=== PATIENT | male | born 1935 | race Caucasian/White ===

== ENCOUNTER 2016-05-09 17:59 | Outpatient (CLI) | payer OTHER ==
[2016-05-09 21:22] VITALS: BMI 18.1
== END 2016-05-09 18:00 | disposition home or self-care (01) ==
LOC: AMBL 17:59
PROVIDERS: ATTEND Family Medicine
DX: R50.9 Fever, unspecified (principal); R11.10 Vomiting, unspecified; R33.9 Retention of urine, unspecified; R00.0 Tachycardia, unspecified; R09.02 Hypoxemia

== ENCOUNTER 2016-05-09 18:32 | Inpatient (IN) ==
[2016-05-09] MEDS ORDERED: SODIUM CHLORIDE 1,000 ML IV STA (18:34)
[2016-05-09] MEDS ORDERED: LEVAQUIN 250 MG in PREMIX 50 ML D5W 1 BAG IV STA (18:35)
[2016-05-09 18:56] LABS: BASOPHILS # (AUTO) 0.1 K/uL (0-0.2); BASOPHILS % (AUTO) 0.5 % (0.0-3.0); EOSINOPHILS # (AUTO) 0.1 K/ul (0.0-0.7); EOSINOPHILS % (AUTO) 0.8 % (0.0-7.0); HEMATOCRIT 44.1 % (42.0-52.0); IMMATURE GRANULOCYTE % (AUTO) 0.5 % (0.0-5.0); LYMPHOCYTES # (AUTO) 0.7 K/uL (0.60-3.4); LYMPHOCYTES % (AUTO) 5.5 (10.0-50.0); MEAN CORPUSCULAR HEMOGLOBIN 28.3 pg (27.0-31.0); MEAN CORPUSCULAR HGB CONC 31.7 (31.8-35.4); MEAN CORPUSCULAR VOLUME 89.1 fl (80.0-94.0); MONOCYTES # (AUTO) 0.5 K/uL (0.4-2.0); NEUTROPHILS # (AUTO) 11.6 K/ul (2.0-6.9); NEUTROPHILS % (AUTO) 88.7; PLATELET COUNT 205 10^3/uL (140-440); RED BLOOD COUNT 4.95 10^6/ul (4.70-6.10); WHITE BLOOD COUNT 13.05 K/ul (4.2-10.2)
[2016-05-09 19:15] LABS: ALBUMIN 3.2 g/dL (3.4-5.0); ALBUMIN/GLOBULIN RATIO 0.97; BILIRUBIN,TOTAL 1.26 mg/dL (0.00-1.20); BUN/CREATININE RATIO 10.61; CREATININE 1.13 mg/dL (0.60-1.10); TOTAL PROTEIN 6.5 g/dL (5.8-8.1)
[2016-05-09 19:19] LABS: FLU INTERNAL QC INTERNAL QC VALID; RAPID FLU A NEGATIVE (NEGATIVE); RAPID FLU B NEGATIVE (NEGATIVE)
[2016-05-09 19:27] LABS: ABG PCO2 36.1 mmHg (35-45); ABG PH 7.417 (7.35-7.45)
--- NOTE | 2016-05-09 19:27 | CT ---
EXAM: CT abdomen pelvis without contrast HISTORY: Vomiting COMPARISON: CT abdomen pelvis 11/09/2015 and 08/17/2014 TECHNIQUE: Serial axial images of the abdomen pelvis were performed from the lung bases through the inferior pelvis without contrast. These were viewed in multiple planes. FINDINGS: The lung bases demonstrate trace pleural fluid and bibasilar consolidations. There is em physematous disease. Evaluation is limited due to lack of contrast. The liver is unremarkable. The gallbladder has been removed. There is gas within the common duct and left-sided pneumobilia. The adrenal glands are u nremarkable. The kidneys are unremarkable. The liver is unremarkable. The pancreas is unremarkabl e. The stomach is unremarkable. The small bowel in the abdomen pelvis is unremarkable. The appendix i s normal. The colon demonstrates significant stool throughout the colon. There is an infrarenal ab dominal aortic aneurysm measuring 2.9 cm in diameter. There is no free air or free fluid. Urinary bladder is distended. Prostate is mildly enlarged. The osseous structures demonstrate degenerative disease of the spine with intact fixation hardware in the right hip. IMPRESSION: 1. The gallbladder has been removed with interval pneumobilia and air in the common duct. 2. Mild bibasilar consolidation versus atelectasis with mild emphysematous disease. 3. Unchanged infrarenal abdominal aortic aneurysm. 4. Prostate is enlarged.
[2016-05-09 19:28] LABS: ABG BASE EXCESS -1 (-2.0-2.0); ABG HCO3 23.2 (22.0-26.0); ABG TCO2 24 (22.0-28.0)
--- NOTE | 2016-05-09 19:31 | CT ---
EXAM: CT scan thorax without contrast HISTORY: Fever cough COMPARISON: CT scan thorax 07/08/2014 FINDINGS: Contiguous axial images obtained through the thorax without contrast utilizing 5-mm colli mation. Sagittal and coronal reconstructions were imaged and reviewed.. There is a stable right-si ded MediPort catheter in the superior vena cava. The heart is normal in size with extensive coronar y artery calcification. There is no pericardial effusion. There are moderate emphysematous changes . There is no evidence of mediastinal lymphadenopathy. Evaluation of hilar structures is limited w ithout intravenous contrast.. Stable fibrotic scarring is noted anteriorly within the right upper l obe. Scarring is also seen within the superior segment of the right lower lobe.. Stable consolidat ion is seen posteromedially superior segment right lower lobe. There has been slight increase in de pendent consolidation at both lung bases.. There is tiny bilateral pleural effusions. Clips are se en in the upper quadrant. Pneumobilia is seen within the left lobe of the liver.. There is stable chronic compression deformity within the mid-thoracic spine. IMPRESSION: Chronic obstructive pulmonary disease. Normal-sized cardiac silhouette with extensive coronary artery calcification. Stable consolidation superior segment right lower lobe with slight increase in dependent consolidati on both lung bases with tiny bilateral pleural effusions. Prior cholecystectomy with pneumobilia
[2016-05-09] MEDS ORDERED: DUONEB NEB STA (19:36)
--- NOTE | 2016-05-09 19:40 | ED.PDOC ---
General ED Provider: Dr. AIME NORIEGA Chief Complaint: Shortness of Air Stated Complaint: Patient is brought by EMT, he was coughing congested, called office and got some antibiotics, but today he started vomiting, so brought him for the evaluation, patient grand child is sick too. Time Seen by Physician: 19:38 Mode of Arrival: Ambulance Information Source: Patient Primary Care Provider: SEAN BIRMINGHAM Nursing and Triage Documentation Reviewed and Agree: Yes Respiratory Complaint Exam - Respiratory Complaint/Exam Symptoms Are: Still present Timing: Constant Initial Severity: Moderate Current Severity: Mild Location: Chest Character: Reports: Productive cough Aggravating: Reports: URI Alleviating: Reports: None Associated Signs and Symptoms: Reports: URI, Nasal congestion. Denies: Rapid breathing, Dyspnea, Fever, Chills, Chest pain, Pleuritic chest pain, Wheezing, Hemoptysis, Dizziness, Calf pain, Calf swelling, Edema, Hoarseness, Sinus discomfort, Vomiting, Sore throat, Weight loss, Decreased oral intake, Increased thirst, Increased appetite, Increased urination Related History: Reports: Similar episode History of Healthcare-Acquired Pneumonia: No Related Surgical History: Reports: None Pulmonary Embolism Risk Factors: None Cardiac Risk Factors: Reports: Smoking, Hypertension Pseudomonas Risk Factors: Reports: None Tuberculosis Risk Factors: Reports: None Status Asthmaticus Risk Factors: Reports: None Home Oxygen Use: No Recent Stress Test: No Recent Echo/LV Function: No Current Antibiotic Use: No Current Asthma Medication Use: No Respiratory Distress: None Inadequate Respiratory Effort: No Dysphagia Present: No Stridor Present: No JVD Present: No Accessory Muscle Use: No Retractions: Not Present Diminished Breath Sounds: No Sinus Tenderness: None Differential Diagnoses: COPD Exacerbation, Pneumonia, Bronchitis, Influenza Review of Systems - Review Of Systems Constitutional: Reports: Fever, Malaise, Weakness Eyes: Reports: No symptoms Ears, Nose, Mouth, Throat: Reports: No symptoms Respiratory: Reports: Cough, Short of air Cardiac: Reports: No symptoms GI: Reports: Nausea, Vomiting : Reports: No symptoms Musculoskeletal: Reports: No symptoms Skin: Reports: No symptoms Neurological: Reports: No symptoms Endocrine: Reports: No symptoms Hematologic/Lymphatic: Reports: No symptoms All Other Systems: Reviewed and Negative Past Medical History - Past Medical History Previously Healthy: Yes Endocrine: Reports: None Cardiovascular: Reports: None Respiratory: Reports: COPD Hematological: Reports: None Gastrointestinal: Reports: None Genitourinary: Reports: None Neuro/Psych: Reports: None Musculoskeletal: Reports: Arthritis 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 ), Other (Mediport ) - Family History Family History: Reports: None - Social History Smoking Status: Former smoker Hx Substance Use: No Alcohol Screening: None Physical Exam - Physical Exam Appearance: Ill-appearing, Thin Ill-appearing: Mild Eyes: EOMI ENT: Ears normal, Nose normal, Oropharynx normal Respiratory: Breath sounds diminished Cardiovascular: RRR, Pulses normal, No rub, No murmur GI/: Soft, Nontender, No masses, Bowel sounds normal, No Organomegaly Musculoskeletal: Normal strength (RT BKA), ROM intact, No edema, No calf tenderness Skin: Warm, Dry, Normal color Neurological: Sensation intact, Motor intact, Reflexes intact, Cranial nerves intact, Alert, Oriented Psychiatric: Affect appropriate, Mood appropriate Interpretation - Radiology Interpretation Radiology Interpretation By: Radiologist Radiology Results: Positive Exam Interpreted: CT Scan Critical Care Note - Critical Care Note Total Time (mins): 0 Course - Course Hematology/Chemistry: 05/09/16 18:45 05/09/16 18:45 Orders, Labs, Meds: Lab Review 05/09/16 05/09/16 18:33 18:45 WBC 13.05 H RBC 4.95 Hgb 14.0 Hct 44.1 MCV 89.1 MCH 28.3 MCHC 31.7 L RDW Coeff of [place] 14.6 Plt Count 205 Immature Gran % (Auto) 0.5 Neut % (Auto) 88.7 Lymph % (Auto) 5.5 L [place] % (Auto) 4.0 Eos % (Auto) 0.8 Baso % (Auto) 0.5 Immature Gran # (Auto) 0.1 Neut # 11.6 H Lymph # 0.7 Divide # 0.5 Eos # 0.1 Baso # 0.1 D-Dimer 2.25 Puncture Site Lb O2 Saturation 93.0 L ABG pH 7.417 ABG pCO2 36.1 ABG pO2 65.0 L ABG HCO3 23.2 ABG Total CO2 24 ABG Base Excess -1 [place] Test + O2 Delivery Device Bnc Oxygen Liter Flow 2.00 FiO2 % 28.0 Sodium 140 Potassium 4.0 Chloride 103 Carbon Dioxide 25 Anion Gap 16.0 BUN 12 Creatinine 1.13 H Estimated GFR (MDRD) 63.00 BUN/Creatinine Ratio 10.61 Glucose 131 H Calcium 9.0 Total Bilirubin 1.26 H AST 15 ALT 12 Alkaline Phosphatase 78 B-Natriuretic Peptide 91 Total Protein 6.5 Albumin 3.2 L Globulin 3.3 Albumin/Globulin Ratio 0.97 Influenza A (Rapid) Negative Influenza B (Rapid) Negative Orders Category Date Time Status ABG DRAW REQUEST Stat CARDIO 05/09/16 18:33 Ordered EKG-(ED ONLY) Stat CARDIO 05/09/16 18:33 Ordered NEBULIZER TREATMENT Stat CARDIO 05/09/16 19:36 Ordered ED IV/MEDIPORT/POWERPORT .ONCE EMERGENCY 05/09/16 18:34 Active ABG Stat LAB 05/09/16 18:33 Completed BLOOD CULTURE Stat LAB 05/09/16 18:45 Received BNP [B-TYPE NATRIURETIC PEPTIDE] Stat LAB 05/09/16 18:45 Completed CBC W/ AUTO DIFF Stat LAB 05/09/16 18:45 Completed COMPREHENSIVE METABOLIC PANEL Stat LAB 05/09/16 18:45 Completed D-DIMER Stat LAB 05/09/16 18:45 Completed MOLECULAR GROUP A STREP Stat LAB 05/09/16 18:45 Results RAPID FLU A/B Stat LAB 05/09/16 18:45 Completed STREP SCREEN Stat LAB 05/09/16 18:45 Results URINALYSIS C & S IF INDICATED Stat LAB 05/09/16 18:33 Uncollected 0.9 % Sodium Chloride [Saline Flush] MEDS 05/09/16 18:34 Ordered 1 syr IVF PRN PRN Ipratropium/Albuterol Neb [Duoneb] MEDS 05/09/16 19:36 Discontinued 1 vial NEB ONCE STA Levofloxacin/D5w [Levaquin] 250 mg MEDS 05/09/16 18:35 Discontinued Premix 50 ml D5w 1 bag IV ONCE Sodium Chloride 0.9% [Sodium Chloride] 1,000 ml MEDS 05/09/16 18:34 Active IV 30 mls/hr CT ABDOMEN/PELVIS WO CONTRAST Stat RADS 05/09/16 18:[address] CHEST W/O CONTRAST Stat RADS 05/09/16 18:35 Completed Medications Generic Name Dose Route Start Last Admin Trade Name Freq PRN Reason Stop Dose Admin Sodium Chloride 1,000 mls @ 30 mls/hr 05/09/16 18:34 05/09/16 18:47 Sodium Chloride IV 05/11/16 03:53 30 mls/hr .[id number] STA Administration Sodium Chloride 1 syr 05/09/16 18:34 Saline Flush IVF PRN PRN To flush IV Discontinued Medications Generic Name Dose Route Start Last Admin Trade Name Marisa PRN Reason Stop Dose Admin Albuterol/Ipratropium 1 vial 05/09/16 19:36 05/09/16 19:42 Duoneb NEB 05/09/16 19:37 1 vial ONCE STA Administration Levofloxacin/Dextrose 250 mg/ 50 mls @ 75 mls/hr 05/09/16 18:35 Dextrose IV 05/09/16 19:14 ONCE STA Vital Signs: Temp Pulse Resp BP Pulse Ox 05/09/16 18:33 99.3 F 122 H 24 110/65 92 L Departure - Departure Time of Disposition: 19:56 Disposition: ADMITTED INPATIENT Discharge Problem: Aspiration pneumonia Qualifiers: Aspiration pneumonia type: due to vomit Laterality: right Lung location: lower lobe of lung Qualifier Code: (J69.0) Pneumonitis due to inhalation of food and vomit Instructions: Pneumonia (ED) Condition: Stable Pt referred to PMD for follow-up: Yes Allergies/Adverse Reactions: Allergies Penicillins Adverse Reaction (Verified 05/09/16 18:38) Home Medications: Ambulatory Orders Fluticasone/Salmeterol [Advair 250-50 Diskus] 1 each IH BID 04/01/13 Tiotropium [place] [Spiriva] 1 cap IH DAILY 04/01/13 Acetaminophen [Tylenol] 325 mg PO Q4H PRN 08/12/13 Guaifenesin [Mucinex] 400 mg PO BID 08/12/13 Aspirin [Adult Low Dose Aspirin EC] 81 mg PO DAILY 10/01/15 Lactobac Cmb #3/Fos/Pantethine [Probiotic & Acidophilus Cap] 1 each PO DAILY 11/08 Tamsulosin HCl [Flomax] 0.4 mg PO DAILY 10/01/15 Calcium Carbonate/Vitamin D3 [Caltrate 600 + D Tablet] 1 each PO DAILY 05/09/16 Ipratropium/Albuterol Neb [Duoneb] 1 vial NEB BID 05/09/16 Polyethylene Glycol 3350 [Miralax] 17 gm PO DAILY 05/09/16 Disposition Discussed With: Patient, Family
[2016-05-09] MEDS ORDERED: TYLENOL PO PRN (19:56)
[2016-05-09] MEDS ORDERED: ROCEPHIN 1 GM in SODIUM CHLORIDE 50 ML IV SCH (20:00)
[2016-05-09] MEDS ORDERED: ZOFRAN 4 MG/2 ML IVP PRN (20:01)
[2016-05-09] MEDS ORDERED: GUAIFENESIN 400 MG PO SCH (21:00)
[2016-05-09] MEDS ORDERED: GUAIFENESIN 600 MG PO SCH (21:03)
[2016-05-09] MEDS ORDERED: MUCINEX PO STA (21:04)
[2016-05-09] MEDS ORDERED: FLOMAX PO STA (21:05)
[2016-05-09 21:22] VITALS: BMI 18.1
[2016-05-09] MEDS ORDERED: FLAGYL 500 MG/100 ML 100 ML IV ONE (22:55)
[2016-05-09] MEDS ORDERED: ROCEPHIN ONE (22:55)
[2016-05-09] MEDS ORDERED: LEVAQUIN 50 ML IV ONE (22:55)
[2016-05-09] MEDS: DUONEB NEB SCH (23:00)
[2016-05-10] MEDS: SOLU-MEDROL 40 MG IVP SCH ×4 (01:08→20:16)
[2016-05-10] MEDS: FLAGYL 500 MG/100 ML 500 MG in PREMIX 100 ML NS 1 BAG IV SCH ×4 (01:10→21:43)
[2016-05-10 02:21] LABS: BASOPHILS # (AUTO) 0.1 K/uL (0-0.2); BASOPHILS % (AUTO) 0.5 % (0.0-3.0); EOSINOPHILS % (AUTO) 0.2 % (0.0-7.0); HEMATOCRIT 40.7 % (42.0-52.0); IMMATURE GRANULOCYTE % (AUTO) 0.5 % (0.0-5.0); LYMPHOCYTES # (AUTO) 0.9 K/uL (0.60-3.4); LYMPHOCYTES % (AUTO) 7.2 (10.0-50.0); MEAN CORPUSCULAR HEMOGLOBIN 28.5 pg (27.0-31.0); MEAN CORPUSCULAR HGB CONC 31.9 (31.8-35.4); MEAN CORPUSCULAR VOLUME 89.3 fl (80.0-94.0); MONOCYTES # (AUTO) 0.6 K/uL (0.4-2.0); MONOCYTES % (AUTO) 5.1 (0-10); NEUTROPHILS # (AUTO) 10.9 K/ul (2.0-6.9); NEUTROPHILS % (AUTO) 86.5; PLATELET COUNT 206 10^3/uL (140-440); RED BLOOD COUNT 4.56 10^6/ul (4.70-6.10); WHITE BLOOD COUNT 12.58 K/ul (4.2-10.2)
[2016-05-10 02:47] LABS: ANION GAP 12.9; BILIRUBIN,TOTAL 1.19 mg/dL (0.00-1.20); BUN/CREATININE RATIO 9.75; CALCIUM 8.7 mg/dL (8.2-10.2); CREATININE 1.23 mg/dL (0.60-1.10); POTASSIUM 3.9 mmol/L (3.5-5.1)
[2016-05-10 02:53] LABS: CREATINE KINASE 91 U/L
[2016-05-10] MEDS: SODIUM CHLORIDE 1,000 ML IV SCH (03:57)
[2016-05-10] MEDS: DUONEB NEB SCH ×3 (05:20→17:04)
[2016-05-10] MEDS ORDERED: FLAGYL 500 MG/100 ML 100 ML IV ONE (06:48)
[2016-05-10] MEDS: MIRALAX PO SCH (08:57)
[2016-05-10] MEDS: LOVENOX SUBCUT SCH (08:57)
[2016-05-10] MEDS: ADVAIR 250-50 DISKUS IH SCH ×3 (08:57→20:15)
[2016-05-10] MEDS: ASPIRIN EC PO SCH (08:58)
[2016-05-10] MEDS: MUCINEX PO SCH ×2 (08:58→20:15)
[2016-05-10] MEDS: CALCIUM 500 + VIT D 200 MG TABLET PO SCH (08:58)
[2016-05-10] MEDS: SPIRIVA IH SCH (09:00)
[2016-05-10] MEDS ORDERED: NON-FORMULARY MEDICATION (Calcium Carbonate/Vitamin D3 [Caltrate 600 Plus D3 Tablet] 1 EAC PO SCH (09:00)
[2016-05-10] MEDS ORDERED: [UNRECOGNIZED DRUG - OTHER] PO SCH (09:00)
[2016-05-10] MEDS ORDERED: FLOMAX PO SCH (09:00)
[2016-05-10] MEDS: FLORASTOR PO SCH (09:08)
[2016-05-10 11:01] LABS: TROPONIN I 0.01 ng/ml (0.0000-0.4000)
[2016-05-10] MEDS: ROCEPHIN 1 GM in SODIUM CHLORIDE 50 ML IV SCH (20:05)
[2016-05-11] MEDS: DUONEB NEB SCH ×5 (00:05→23:18)
[2016-05-11] MEDS: SODIUM CHLORIDE 1,000 ML IV SCH (02:57)
[2016-05-11] MEDS: FLAGYL 500 MG/100 ML 500 MG in PREMIX 100 ML NS 1 BAG IV SCH ×3 (04:19→20:46)
[2016-05-11 05:15] LABS: BASOPHILS % (AUTO) 0.2 % (0.0-3.0); HEMATOCRIT 35.3 % (42.0-52.0); HEMOGLOBIN 11.3 g/dl (14.0-18.0); IMMATURE GRANULOCYTE % (AUTO) 1.1 % (0.0-5.0); LYMPHOCYTES # (AUTO) 0.5 K/uL (0.60-3.4); LYMPHOCYTES % (AUTO) 4.2 (10.0-50.0); MEAN CORPUSCULAR HEMOGLOBIN 28.6 pg (27.0-31.0); MEAN CORPUSCULAR VOLUME 89.4 fl (80.0-94.0); MONOCYTES # (AUTO) 0.4 K/uL (0.4-2.0); MONOCYTES % (AUTO) 3.1 (0-10); NEUTROPHILS # (AUTO) 11.3 K/ul (2.0-6.9); NEUTROPHILS % (AUTO) 91.4; PLATELET COUNT 183 10^3/uL (140-440); RED BLOOD COUNT 3.95 10^6/ul (4.70-6.10); WHITE BLOOD COUNT 12.38 K/ul (4.2-10.2)
[2016-05-11] MEDS: SOLU-MEDROL 40 MG IVP SCH ×3 (05:22→20:46)
[2016-05-11 05:37] LABS: ALBUMIN 2.8 g/dL (3.4-5.0); ALBUMIN/GLOBULIN RATIO 1.12; ANION GAP 10.2; BILIRUBIN,TOTAL 0.37 mg/dL (0.00-1.20); BUN/CREATININE RATIO 15.74; CALCIUM 8.8 mg/dL (8.2-10.2); CREATININE 1.08 mg/dL (0.60-1.10); POTASSIUM 4.2 mmol/L (3.5-5.1); TOTAL PROTEIN 5.3 g/dL (5.8-8.1)
[2016-05-11] MEDS: ASPIRIN EC PO SCH (08:41)
[2016-05-11] MEDS: ADVAIR 250-50 DISKUS IH SCH ×2 (08:41→20:46)
[2016-05-11] MEDS: CALCIUM 500 + VIT D 200 MG TABLET PO SCH (08:41)
[2016-05-11] MEDS: FLORASTOR PO SCH (08:42)
[2016-05-11] MEDS: MUCINEX PO SCH ×2 (08:42→20:46)
[2016-05-11] MEDS: MIRALAX PO SCH (08:42)
[2016-05-11] MEDS: LOVENOX SUBCUT SCH (08:42)
[2016-05-11] MEDS: SPIRIVA IH SCH (08:43)
[2016-05-11 10:12] LABS: BILIRUBIN,URINE Negative (NEGATIVE); KETONES,URINE Negative (NEGATIVE); LEUKOCYTE ESTERASE ,URINE Trace (NEGATIVE); NITRITE,URINE Negative (NEGATIVE); PROTEIN,URINE Negative (NEGATIVE); URINE, BLOOD Negative (NEGATIVE)
--- NOTE | 2016-05-11 10:12 | PCM.PROG ---
Attending Provider: ATTENDING PROVIDER: Dr. AIME NORIEGA DATE OF SERVICE: 05/11/16 SUBJECTIVE: This 80 year old WHITE/ M was hospitalized 05/09/16. The patient is admitted with aspiration pneumonia, vomiting and hypoxemia. No vomiting since admission. The patient is still coughing, no phlegm production, no vomiting. Blood pressure is low for which he received a fluid challenge of 200 mL but did not help much. The patient is asymptomatic. So far urinalysis was not obtained. REVIEW OF SYSTEMS: CONSTITUTIONAL: No fever, no chills. ENDOCRINE: No weight loss or weight gain. HEENT: No sinus drainage, no sore throat. CVS: No angina symptoms. No CHF symptoms. No palpitations. No atypical chest pain for CAD. No shortness of breath at rest. RESPIRATORY: Cough. No hemoptysis. GI: No melena. No abdominal pain. No nausea, no vomiting. : No hematuria. No polyuria. SKIN: No rash. No wounds. MUSCULOSKELETAL: No pain. PULMONARY PHYSICAL THERAPIST: No blackout, no dizziness. No headache. No double vision. PSYCHIATRIC: Not anxious; no depression. No suicidal thoughts. No homicidal thoughts. PHYSICAL EXAMINATION: GENERAL: Lying in bed in no distress. VITAL SIGNS: Temperature 95.8 F, Pulse 69, Respiratory Rate 12, BP 96/58, Pulse Ox 98% HEENT: Normocephalic, atraumatic. Mucosa is dry, pallor positive. NECK: No JVP, no carotid bruit. No lymphadenopathy. CARDIAC: S1, S2, no S3. No murmur, gallop or regurgitation. LUNGS: Decreased entry. Basilar crackles right more than left. Clear to auscultation. ABDOMEN: Soft, non-tender. Bowel sounds active. No rigidity, guarding or CVA tenderness. EXTREMITIES: No clubbing, cyanosis or edema. Right [id number] amputation. NEUROLOGIC: Awake, alert and oriented x3. LYMPHATIC: No palpable lymph nodes SKIN: Not dry. Intact. MUSCULOSKELETAL: No joint swelling. LAB REVIEW: 05/11/16 05:08 05/11/16 05:08 05/11/16 05:08: WBC 12.38 H, RBC 3.95 L, Hgb 11.3 L, Hct 35.3 L, MCV 89.4, MCH 28.6, MCHC 32.0, RDW Coeff of [place] 14.7, Plt Count 183, Immature Gran % (Auto) 1.1, Neut % (Auto) 91.4, Lymph % (Auto) 4.2 L, Lucas % (Auto) 3.1, Eos % (Auto) 0.0, Baso % (Auto) 0.2, Immature Gran # (Auto) 0.1, Neut # 11.3 H, Lymph # 0.5 L , Lucas # 0.4, Eos # 0.0, Baso # 0.0, Sodium 139, Potassium 4.2, Chloride 107, Carbon Dioxide 26, Anion Gap 10.2, BUN 17, Creatinine 1.08, Estimated GFR (MDRD ) 66.00, BUN/Creatinine Ratio 15.74, Glucose 160 H, Calcium 8.8, Total Bilirubin 0.37, AST 9 L, ALT 8 L, Alkaline Phosphatase 52 L, Total Protein 5.3 L , Albumin 2.8 L, Globulin 2.5, Albumin/Globulin Ratio 1.12 05/10/16 10:30: Total Creatine Kinase 60, Troponin I 0.0100 ASSESSMENT: 1. Aspiration pneumonia right lower lobe 2. Hypotension most likely from dehydration, rule out sepsis 3. Hypertension 4. Dyslipidemia 5. Osteoarthritis 6. COPD, oxygen dependent 7. BPH 8. History of right BKA PLAN: 1. Continue Rocephin and Flagyl 2. Duonebs, Solu-Medrol 3. UA catheterized specimen 4. Diet - as patient tolerates Plan and coordination of the patient's care discussed in the presence of Diesel Instructor and nurse. CONDITION: Stable SCRIBED BY: Tammy CARRASCO scribed while in presence of service performed by Dr. AIME NORIEGA on 05/11/16 ([id number])
[2016-05-11 10:17] LABS: ADD URINE MICROSCOPIC YES; BACTERIA,URINE TRACE (NOT PRESENT)
--- NOTE | 2016-05-11 11:02 | PN ---
DATE OF SERVICE: 05/10/16 SUBJECTIVE: The patient was admitted with the questionable aspiration pneumonia. The patient was having the nausea, vomiting and then saturation dropped. Home health care people were afraid and sent the patient to the emergency room and was seen and evaluated in the emergency room. The patient was hypoxic and bilateral lower lobe pneumonia. REVIEW OF SYSTEMS: CONSTITUTIONAL: No fever, no chills. HEENT: Normal. ENDOCRINE: No weight gain, no weight loss. CVS: No angina symptoms. No CHF symptoms. No palpitations. No atypical chest pain for CAD. No shortness of breath. No PND, no orthopnea. RESPIRATORY: No cough, no hemoptysis. GI: No nausea, no vomiting. No abdominal pain. : No hematuria. No polyuria. MUSCULOSKELETAL:. No joint swelling. PSYCHIATRIC: Not anxious. No depression. No suicidal thoughts. No homicidal thoughts. SKIN: Intact. No rash. PHYSICAL EXAMINATION: V/S: Blood pressure 88/51, respiratory rate 22, heart rate 104 and saturation 96 %. HEENT: Normocephalic, atraumatic. Ears, eyes, nose and throat normal. Mucosa dry. Pallor positive. NECK: Supple. No JVD, no carotid bruit. No lymphadenopathy. LUNGS: Decreased entry with basilar crackles. No rales or rhonchi. HEART: S1, S2 normal. No S3. No murmur, gallop or regurgitation. ABDOMEN: Soft, nontender. Bowel sounds active. No rigidity. No rebound or guarding. No CVA tenderness. EXTREMITIES: No clubbing, cyanosis or pedal edema. MUSCULOSKELETAL: No joint swelling. NEUROLOGIC: Awake, alert, oriented times three. No focal deficit. LYMPHATIC: No lymph nodes palpable. SKIN: Intact. LABS: WBC 12.58, hgb 13.0, hct 40.7, plt count 206, sodium 138, potassium 3.9, chloride 103, Bicarb 26, BUN 12 and creatinine 1.23. ASSESSMENT: 1. Bilateral right lower lobe pneumonia most likely aspiration 2. COPD, oxygen dependant 3. Hypertension 4. Dyslipidemia 5. Status post right below the knee amputation PLAN: 1. Continue the Rocephin and Flagyl 2. DUO NEBS 3. Solu-Medrol 4. Lovenox for the DVT prophylaxis Will follow the patient in daily rounds. TIME SPENT: More than 30 minutes MTDD
[2016-05-11] MEDS: ROCEPHIN 1 GM in SODIUM CHLORIDE 50 ML IV SCH (20:07)
[2016-05-12] MEDS: CALMOSEPTINE OINTMENT TP SCH ×5 (01:25→20:06)
[2016-05-12 04:30] LABS: BASOPHILS % (AUTO) 0.1 % (0.0-3.0); HEMATOCRIT 36.7 % (42.0-52.0); HEMOGLOBIN 11.5 g/dl (14.0-18.0); IMMATURE GRANULOCYTE % (AUTO) 1.3 % (0.0-5.0); LYMPHOCYTES # (AUTO) 0.5 K/uL (0.60-3.4); LYMPHOCYTES % (AUTO) 3.1 (10.0-50.0); MEAN CORPUSCULAR HEMOGLOBIN 28.4 pg (27.0-31.0); MEAN CORPUSCULAR HGB CONC 31.3 (31.8-35.4); MEAN CORPUSCULAR VOLUME 90.6 fl (80.0-94.0); MONOCYTES # (AUTO) 0.5 K/uL (0.4-2.0); MONOCYTES % (AUTO) 3.2 (0-10); NEUTROPHILS # (AUTO) 13.4 K/ul (2.0-6.9); NEUTROPHILS % (AUTO) 92.3; PLATELET COUNT 208 10^3/uL (140-440); RED BLOOD COUNT 4.05 10^6/ul (4.70-6.10); WHITE BLOOD COUNT 14.54 K/ul (4.2-10.2)
[2016-05-12 04:50] LABS: ALBUMIN 2.7 g/dL (3.4-5.0); ALBUMIN/GLOBULIN RATIO 1.04; ANION GAP 11.9; BILIRUBIN,TOTAL 0.26 mg/dL (0.00-1.20); CALCIUM 8.7 mg/dL (8.2-10.2); CREATININE 1.05 mg/dL (0.60-1.10); POTASSIUM 3.9 mmol/L (3.5-5.1); TOTAL PROTEIN 5.3 g/dL (5.8-8.1)
[2016-05-12] MEDS: DUONEB NEB SCH ×4 (05:30→23:38)
[2016-05-12] MEDS: SOLU-MEDROL 40 MG IVP SCH ×3 (05:31→20:04)
[2016-05-12] MEDS: FLAGYL 500 MG/100 ML 500 MG in PREMIX 100 ML NS 1 BAG IV SCH ×3 (05:32→20:02)
[2016-05-12] MEDS: SODIUM CHLORIDE 1,000 ML IV SCH (09:18)
[2016-05-12] MEDS: ADVAIR 250-50 DISKUS IH SCH ×2 (09:19→21:10)
[2016-05-12] MEDS: CALCIUM 500 + VIT D 200 MG TABLET PO SCH (09:20)
[2016-05-12] MEDS: FLORASTOR PO SCH (09:20)
[2016-05-12] MEDS: MUCINEX PO SCH ×2 (09:21→20:00)
[2016-05-12] MEDS: SPIRIVA IH SCH (09:21)
[2016-05-12] MEDS: LOVENOX SUBCUT SCH (09:22)
[2016-05-12] MEDS: MIRALAX PO SCH (09:24)
--- NOTE | 2016-05-12 10:12 | DI ---
EXAM: Single view of the chest. History: Cough, short of breath Comparison: Chest radiograph 10/03/2015, chest CT 05/09/2016 Findings: Heart size is normal. Right central line is seen in place. Emphysema. No pneumothorax. Mild right basilar infiltrate. Visualized osseous structures unchanged. Impression: Mild right basilar infiltrate. Emphysema.
[2016-05-12] MEDS: ROCEPHIN 1 GM in SODIUM CHLORIDE 50 ML IV SCH (21:10)
[2016-05-13 04:28] LABS: BASOPHILS % (AUTO) 0.1 % (0.0-3.0); HEMATOCRIT 37.5 % (42.0-52.0); HEMOGLOBIN 11.8 g/dl (14.0-18.0); IMMATURE GRANULOCYTE % (AUTO) 0.8 % (0.0-5.0); LYMPHOCYTES # (AUTO) 0.5 K/uL (0.60-3.4); LYMPHOCYTES % (AUTO) 4.4 (10.0-50.0); MEAN CORPUSCULAR HEMOGLOBIN 28.4 pg (27.0-31.0); MEAN CORPUSCULAR HGB CONC 31.5 (31.8-35.4); MEAN CORPUSCULAR VOLUME 90.1 fl (80.0-94.0); MONOCYTES # (AUTO) 0.4 K/uL (0.4-2.0); MONOCYTES % (AUTO) 3.8 (0-10); NEUTROPHILS # (AUTO) 9.2 K/ul (2.0-6.9); NEUTROPHILS % (AUTO) 90.9; PLATELET COUNT 209 10^3/uL (140-440); RED BLOOD COUNT 4.16 10^6/ul (4.70-6.10); WHITE BLOOD COUNT 10.17 K/ul (4.2-10.2)
[2016-05-13] MEDS: FLAGYL 500 MG/100 ML 500 MG in PREMIX 100 ML NS 1 BAG IV SCH ×3 (04:31→21:06)
[2016-05-13] MEDS: SOLU-MEDROL 40 MG IVP SCH (04:32)
[2016-05-13 04:46] LABS: ALBUMIN 2.7 g/dL (3.4-5.0); ALBUMIN/GLOBULIN RATIO 1.08; ANION GAP 11.2; BILIRUBIN,TOTAL 0.27 mg/dL (0.00-1.20); BUN/CREATININE RATIO 17.11; CALCIUM 8.4 mg/dL (8.2-10.2); CREATININE 1.11 mg/dL (0.60-1.10); POTASSIUM 4.2 mmol/L (3.5-5.1); TOTAL PROTEIN 5.2 g/dL (5.8-8.1)
[2016-05-13] MEDS: DUONEB NEB SCH ×3 (05:46→17:18)
[2016-05-13] MEDS: ASPIRIN EC PO SCH (08:08)
[2016-05-13] MEDS ORDERED: MIRALAX PO SCH (08:55)
[2016-05-13] MEDS: ADVAIR 250-50 DISKUS IH SCH ×2 (10:17→20:06)
[2016-05-13] MEDS: CALCIUM 500 + VIT D 200 MG TABLET PO SCH (10:17)
[2016-05-13] MEDS: CALMOSEPTINE OINTMENT TP SCH ×4 (10:18→20:06)
[2016-05-13] MEDS: FLORASTOR PO SCH (10:19)
[2016-05-13] MEDS: LOVENOX SUBCUT SCH (10:20)
[2016-05-13] MEDS: MEDROL DOSEPAK PO SCH ×4 (10:22→20:07)
[2016-05-13] MEDS: MUCINEX PO SCH ×2 (10:23→20:05)
[2016-05-13] MEDS: SPIRIVA IH SCH (10:24)
--- NOTE | 2016-05-13 11:37 | RS.BEDDYS ---
Subjective Number of treatment sessions: 3 Date of Evaluation: 05/13/16 Date of Onset/Injury/Change in Status: 05/09/16 Treatment Diagnosis: aspiration pneunomia Current Level of Function: Pt requires mild-moderate assitance for feeding and swallowing. Pt able to self-feed with verbal, visual, and tactile cues. Pt with mild difficulty maintaining adequate posture for safe swallowing. Current Diet: Puree diet texture with Honey-thick liquid consistency. Current Subjective/complaints:: Family reported hx of prolonged mastication, slow rate with PO intake, and coughing episodes with PO intake. Pt is poor historian, and reported no complaints with PO. Pt reported feeling hungry. Medical History Comments:: Pneumonia. Fever. COPD exacerbation. Aspiration pnuemonia. Hx Home Medications: Refer to medication list and nursing notes for complete list of current medications. Patient's Goals: Pt stated he was hungry and wanted to eat. Family member reported for pt to maintain safest and least restrictive diet and liquid texture with no overt s/s of aspiration. General Information - General Denture Type: Full- Upper & Lower Patient Orientation: Person Ability to Follow Directions: Fair Is Patient able to Repeat Directions?: Yes (Moderate cues required.) Oral Expression Ability: Mild Impairment - Voice Voice Quality: Harsh Voice Pitch: Normal Voice Loudness: Normal Oral-Facial Assessment - Face Facial Symmetry: Symmetrical Facial Movement: Controlled - Dental/Labial Mouth Occlusion: Normal Teeth Characteristics: Broken Teeth Comment: Upper dentures broken front tooth. Lip Protrusion: Normal Lip Retraction: Normal Puff Cheeks: Reduced Strength - Lingual Protrusion: Normal Retraction: Weak Tip Lateralization: Weak Repeated Tip Lateralization: Weak Tip Elevation: Discoordination Repeated Tip Elevation: Discoordination - Palate and Pharynx Soft Palate Description: Normal Color Hard Palate Description: Normal Color Gag Reflex Response: No gag reflex observed. Velopharyngeal Movement: Normal Food Presentation - Solids Food Presented: Pureed Behaviors/Comments: Pt willing to consume texture without behaviors. Pt cleared puree spoon. No oral residue noted post swallow. Increased oral phase production with minimal delay. Food Presented: Mechanical Soft Behaviors/Comments: HELP DESK REP presented 1/2 teaspoon and 1 tablespoon size bites. Pt with prolonged mastication, restricted rotary chew, poor bolus formation, and mild-moderate lingual residue post swallow. Residue increased as frequency of bites were presented. - Liquids Liquid Presented: Thin (Via straw, open cup) Behaviors/Comments: Pt with clear voice on first three trials. Fourth trial pt with immediate overt wet cough, vocal quality change, and watery eyes. Mild wheezing noted. Liquid Presented: [place] (Via open cup and teaspoon) Behaviors/Comments: Pt tolerated nectar thick liquids independently. When presented with solids, pt had overt delayed cough 2x with vocal quality change. Recover time approximately five seconds. Oxygen saturation levels maintained between 96-97. Liquid Presented: Honey (Via teaspoon) Behaviors/Comments: Pt without overt s/s with honey thick liquids with solids or independently. HELP DESK REP presented liquids via teaspoon. Swallow response two seconds. - Recommendations: Dysphagia Evaluation Dietary Recommendations: Dysphagia Pureed, Honey-thick liquids Comments:: Pt to have spoon or open cup with honey-thick liquids. No straws Dysphagia Swallow Precautions/Strategies: Sitting Upright (90 deg), No Straw, Liquids from Cup, Liquids from Spoon, Small Bites and Sips, Alternate Liquids/ Solids Comments:: Pt to have assistance with PO intake to increase awareness, assist with positioning and safe swallow posture, maintain adequate size bites, decrease risk of oral residue, encourage alternation of liquids and solids every 3-4 bites, monitor for fatigue and s/s of aspiration. - Summary Dysphagia Evaluation Summary: Pt presents with oropharyngeal stage dysphagia. Poor rotary chew with prolonged mastication decrease bolus formation and increase oral residue with mechanical soft texture. Pt with 5-7 seconds swallow delay with thin and nectar thick liquids, and presents with decreased base of tongue strength. Overt s/s noted with nectar and thin liquids. Pt tolerated puree diet texture and honey-thick liquids without overt s/s of aspiration, however required mild verbal, visual, and tactile cues to increase awareness and alternate liquids and solids. Further Therapy Indicated?: Yes Comments: Provide treatment to increase oral motor strength and coordination. Then determine readiness for diet and/or liquid upgrade. Rehab Potential: Fair (Due to patients orientation and self-awareness. Pts ability to independently utilize compensatory swallow strategies.) Functional Reporting G Codes: CL 60-79% level 3 Severity Impairment Rationale: Pt on honey thick liquids with puree diet texture. Short Term Goals Goal #1: Will participate in oral motor exercises to 80% accuracy with a model. Goal to be met by: 05/18/16 Goal #2: Will complete oral exercises focused on bolus manipulation and rotary chew Goal to be met by: 05/18/16 Goal #3: Will complete thermal/sour stimulation to decrease swallow delay Goal to be met by: 05/18/16 Goal #4: Will tolerate 1/2 teaspoon mechanical soft diet texture on 02/02 trials. Gi Tech Goals Goal #1: Maximize oral strength and coordination for oral phase efficiency. Goal #2: Upgrade diet and liquid textue to safest and least restrictive. Plan Duration of Treatment: 1 Week Frequency of Treatment: 3x over 1 week Anticipated Discharge Destination: Family undecided at this time
--- NOTE | 2016-05-13 13:37 | PCM.PROG ---
Attending Provider: ATTENDING PROVIDER: Dr. AIME NORIEGA DATE OF SERVICE: 05/13/16 SUBJECTIVE: This 80 year old WHITE/ M was hospitalized 05/09/16. The patient states he is hungry. He is doing much better today. Cough and congestion is better. The patient's scrotum has a raw surface is sore and red but not swollen. REVIEW OF SYSTEMS: CONSTITUTIONAL: No fever, no chills. ENDOCRINE: No weight loss or weight gain. HEENT: No sinus drainage, no sore throat. CVS: No angina symptoms. No CHF symptoms. No palpitations. No atypical chest pain for CAD. No shortness of breath. RESPIRATORY: No cough, no hemoptysis. GI: No melena. No abdominal pain. No nausea, no vomiting. : No hematuria. No polyuria. Raw surface on the scrotum, redness and soreness but no swelling. SKIN: No rash. No wounds. MUSCULOSKELETAL: Right BKA. FUMIGATOR AND STERILIZER: No blackout, no dizziness. No headache. No double vision. PSYCHIATRIC: Not anxious; no depression. No suicidal thoughts. No homicidal thoughts. PHYSICAL EXAMINATION: GENERAL: Lying in bed in no distress. VITAL SIGNS: Temperature 97.3 F, Pulse 68, Respiratory Rate 22, BP 124/70, Pulse Ox 97% HEENT: Normocephalic, atraumatic. Mucosa is dry, pallor positive. NECK: No JVP, no carotid bruit. No lymphadenopathy. CARDIAC: S1, S2, no S3. No murmur, gallop or regurgitation. LUNGS: Decreased entry with basilar crackles on the right more than left. ABDOMEN: Soft, non-tender. Bowel sounds active. No rigidity, guarding or CVA tenderness. EXTREMITIES: Right BKA, no edema on left. NEUROLOGIC: Awake, alert and oriented x3. LYMPHATIC: No palpable lymph nodes SKIN: Not dry. Intact. MUSCULOSKELETAL: No joint swelling. LAB REVIEW: 05/13/16 04:00 05/13/16 04:00 05/13/16 04:00: WBC 10.17, RBC 4.16 L, Hgb 11.8 L, Hct 37.5 L, MCV 90.1, MCH 28.4, MCHC 31.5 L, RDW Coeff of [place] 14.7, Plt Count 209, Immature Gran % (Auto) 0.8, Neut % (Auto) 90.9, Lymph % (Auto) 4.4 L, [place] % (Auto) 3.8, Eos % (Auto) 0.0, Baso % (Auto) 0.1, Immature Gran # (Auto) 0.1, Neut # 9.2 H, Lymph # 0.5 L , [place] # 0.4, Eos # 0.0, Baso # 0.0, Sodium 140, Potassium 4.2, Chloride 107, Carbon Dioxide 26, Anion Gap 11.2, BUN 19 H, Creatinine 1.11 H, Estimated GFR ( MDRD) 64.00, BUN/Creatinine Ratio 17.11, Glucose 172 H, Calcium 8.4, Total Bilirubin 0.27, AST 7 L, ALT 7 L, Alkaline Phosphatase 52 L, Total Protein 5.2 L , Albumin 2.7 L, Globulin 2.5, Albumin/Globulin Ratio 1.08 ASSESSMENT: 1. Aspiration pneumonia right lower lobe 2. Hypotension most likely from dehydration, rule out sepsis 3. Hypertension 4. Dyslipidemia 5. Osteoarthritis 6. COPD, oxygen dependent 7. BPH 8. History of right BKA PLAN: 1. Medrol Dosepak 2. Continue Flagyl 3. Continue Rocephin 4. Saline lock IV 5. Keep scrotal area dry Plan and coordination of the patient's care discussed in the presence of Baggage Screener and nurse. CONDITION: Stable SCRIBED BY: SULLY GIBBS Store Operations Specialist scribed while in presence of service performed by Dr. AIME NORIEGA on 05/13/16 ([id number])
[2016-05-13] MEDS: SODIUM CHLORIDE 1,000 ML IV SCH (19:21)
[2016-05-13] MEDS: ROCEPHIN 1 GM in SODIUM CHLORIDE 50 ML IV SCH (20:05)
[2016-05-14] MEDS: DUONEB NEB SCH ×5 (00:20→23:14)
[2016-05-14] MEDS: FLAGYL 500 MG/100 ML 500 MG in PREMIX 100 ML NS 1 BAG IV SCH ×3 (04:35→21:30)
[2016-05-14] MEDS: MEDROL DOSEPAK PO SCH ×4 (05:36→20:40)
[2016-05-14 05:37] LABS: BASOPHILS % (AUTO) 0.1 % (0.0-3.0); HEMATOCRIT 41.1 % (42.0-52.0); HEMOGLOBIN 13.1 g/dl (14.0-18.0); IMMATURE GRANULOCYTE % (AUTO) 1.1 % (0.0-5.0); LYMPHOCYTES # (AUTO) 0.6 K/uL (0.60-3.4); LYMPHOCYTES % (AUTO) 5.6 (10.0-50.0); MEAN CORPUSCULAR HEMOGLOBIN 28.2 pg (27.0-31.0); MEAN CORPUSCULAR HGB CONC 31.9 (31.8-35.4); MEAN CORPUSCULAR VOLUME 88.6 fl (80.0-94.0); MONOCYTES # (AUTO) 0.7 K/uL (0.4-2.0); MONOCYTES % (AUTO) 6.2 (0-10); NEUTROPHILS # (AUTO) 9.4 K/ul (2.0-6.9); PLATELET COUNT 212 10^3/uL (140-440); RED BLOOD COUNT 4.64 10^6/ul (4.70-6.10); WHITE BLOOD COUNT 10.78 K/ul (4.2-10.2)
[2016-05-14 05:58] LABS: ALBUMIN 2.9 g/dL (3.4-5.0); ALBUMIN/GLOBULIN RATIO 1.16; ANION GAP 10.1; BILIRUBIN,TOTAL 0.38 mg/dL (0.00-1.20); BUN/CREATININE RATIO 15.59; CALCIUM 8.8 mg/dL (8.2-10.2); CREATININE 1.09 mg/dL (0.60-1.10); POTASSIUM 4.1 mmol/L (3.5-5.1); TOTAL PROTEIN 5.4 g/dL (5.8-8.1)
[2016-05-14] MEDS: LOVENOX SUBCUT SCH (08:34)
[2016-05-14] MEDS: ASPIRIN EC PO SCH (08:35)
[2016-05-14] MEDS: CALMOSEPTINE OINTMENT TP SCH ×4 (08:36→20:39)
[2016-05-14] MEDS: CALCIUM 500 + VIT D 200 MG TABLET PO SCH (08:36)
[2016-05-14] MEDS: ADVAIR 250-50 DISKUS IH SCH ×2 (08:36→20:39)
[2016-05-14] MEDS: FLORASTOR PO SCH (08:36)
[2016-05-14] MEDS: SPIRIVA IH SCH (08:36)
[2016-05-14] MEDS: MUCINEX PO SCH ×2 (08:37→20:39)
--- NOTE | 2016-05-14 12:33 | PCM.PROG ---
Attending Provider: ATTENDING PROVIDER: Dr. AIME NORIEGA DATE OF SERVICE: 05/14/16 SUBJECTIVE: This 80 year old WHITE/ M was hospitalized 05/09/16. The patient is not as perky this morning but just woke up. Discussion with [id number] about longterm placement for strengthening but she states that her mother-in -law is adamant that she wants to take care of him herself. The patient was placed on Plunkett catheter as he was soiling his clothes which was affecting the buttocks and scrotal area. As of now no pain just redness is present in buttocks and scrotal area. REVIEW OF SYSTEMS: CONSTITUTIONAL: No fever, no chills. ENDOCRINE: No weight loss or weight gain. HEENT: No sinus drainage, no sore throat. CVS: No angina symptoms. No CHF symptoms. No palpitations. No atypical chest pain for CAD. No shortness of breath. RESPIRATORY: Less cough, no hemoptysis. GI: No melena. No abdominal pain. No nausea, no vomiting. : No hematuria. No polyuria. Plunkett catheter in place. SKIN: Redness to scrotal area and buttock area. MUSCULOSKELETAL: No pain. FUNDRAISING ASSISTANT: No blackout, no dizziness. No headache. No double vision. PSYCHIATRIC: Not anxious; no depression. No suicidal thoughts. No homicidal thoughts. PHYSICAL EXAMINATION: GENERAL: Lying in bed in no distress. VITAL SIGNS: Temperature 98.1 F, Pulse 81, Respiratory Rate 22, BP 133/94, Pulse Ox 95% HEENT: Normocephalic, atraumatic. Mucosa is dry, pallor positive. NECK: No JVP, no carotid bruit. No lymphadenopathy. CARDIAC: S1, S2, no S3. No murmur, gallop or regurgitation. LUNGS: Decreased entry. Clear to auscultation. ABDOMEN: Soft, non-tender. Bowel sounds active. No rigidity, guarding or CVA tenderness. Redness to buttock area and scrotal area. EXTREMITIES: No clubbing, cyanosis or edema. Right BKA. NEUROLOGIC: Awake, alert and oriented x3. LYMPHATIC: No palpable lymph nodes SKIN: Not dry. Intact. MUSCULOSKELETAL: No joint swelling. LAB REVIEW: 05/14/16 05:20 05/14/16 05:20 05/14/16 05:20: WBC 10.78 H, RBC 4.64 L, Hgb 13.1 L, Hct 41.1 L, MCV 88.6, MCH 28.2, MCHC 31.9, RDW Coeff of [place] 14.6, Plt Count 212, Immature Gran % (Auto) 1.1, Neut % (Auto) 87.0, Lymph % (Auto) 5.6 L, [place] % (Auto) 6.2, Eos % (Auto) 0.0, Baso % (Auto) 0.1, Immature Gran # (Auto) 0.1, Neut # 9.4 H, Lymph # 0.6, [place] # 0.7, Eos # 0.0, Baso # 0.0, Sodium 138, Potassium 4.1, Chloride 103, Carbon Dioxide 29, Anion Gap 10.1, BUN 17, Creatinine 1.09, Estimated GFR (MDRD ) 65.00, BUN/Creatinine Ratio 15.59, Glucose 125 H, Calcium 8.8, Total Bilirubin 0.38, AST 11 L, ALT 7 L, Alkaline Phosphatase 57, Total Protein 5.4 L , Albumin 2.9 L, Globulin 2.5, Albumin/Globulin Ratio 1.16 ASSESSMENT: 1. Aspiration pneumonia right lower lobe 2. Hypotension most likely from dehydration, rule out sepsis 3. Hypertension 4. Dyslipidemia 5. Osteoarthritis 6. COPD, oxygen dependent 7. BPH 8. History of right BKA PLAN: Plan and coordination of the patient's care discussed in the presence of Paper Products Supervisor and nurse. CONDITION: Stable SCRIBED BY: SULLY GIBBS Community Cultural Development Officer scribed while in presence of service performed by Dr. AIME NORIEGA on 05/14/16 ([id number])
--- NOTE | 2016-05-14 16:00 | RS.DYSPHTX ---
Dysphagia Treatment Note Date of Note: 05/14/16 Visit #: 2 Time of Treatment: 14:50 Subjective: Pt asleep upon arrival, awoke easily with tactile stimulation. Pt reported no concerns. [id number] present for session. FERTILIZER LOADER provided printed document, and presented verbal education and instructions for puree diet texture and honey-thick liquid consistency. Nursing stated pt did not eat lunch meal and no change was noted in lung sounds. Total treatment time: 40 - Short Term Goals Goal #1: Will participate in oral motor exercises to 80% accuracy with a model. Activity/Accuracy: Exercises not completed this date. Goal #2: Will complete oral exercises focused on bolus manipulation and rotary chew Activity/Accuracy: FERTILIZER LOADER utilized mandibular tactile manipulation to increase rotary chew movements. With tactile, verbal, and visual cues, pt demonstrated moderate mandible tension and restricted ROM. Pt with moderate difficuly over ten trials. FERTILIZER LOADER modeled chewing for pt to imitate, pt did not imiate over three trials. Goal #3: Will complete thermal/sour stimulation to decrease swallow delay Activity/Accuracy: FERTILIZER LOADER presented thermal spoon to lingual surface over three trials. Pt with swallow response on 2/3 trials given, verbal, visual, and tactile cues. Pt had a 2-5 second swallow delay without liquids. Goal #4: Will tolerate 1/2 teaspoon mechanical soft diet texture on 10/10 trials. Activity/Accuracy: FERTILIZER LOADER presented four trials of 1/2 teaspoon mechanical soft texture. FERTILIZER LOADER modeled rotary chew and labial seal for adeqaute bolus manipulation. Pt imitated FERTILIZER LOADER 40% of trials without difficulty. FERTILIZER LOADER increased to 1 teaspoon size bites on 10 trials. Pt utilized adequate rotary chew and bolus manipulation on 50% of trials with mild difficulty. No overt s/s of aspiration noted. Pt cleared bolus on 9/10 trials, and demonstrated lingual sweep with lateral sulcus residue. - Enterprise Business Architect Goals Goal #1: Maximize oral strength and coordination for oral phase efficiency. Goal #2: Upgrade diet and liquid textue to safest and least restrictive. Assessment: Pt was assessed with nectar thick liquid consistency via controlled straw drink. FERTILIZER LOADER presented first trial and pt had 3 second swallow delay, requiring verbal cue to initiate a swallow. Second trial pt had 3-5 second swallow delay with wet vocal quality post swallow. FERTILIZER LOADER instructed pt to utilize double swallow, pt did not follow command. FERTILIZER LOADER instructed pt with throat clear, and pt completed without difficulty and cleared vocal quality. - Units Charged Swallowing Therapy: 3 - Plan Frequency of Treatment: QD Duration of Treatment: 1 Week (Pt has planned d/c for tomorrow this date. He will return to home environment with .)
[2016-05-14] MEDS: ROCEPHIN 1 GM in SODIUM CHLORIDE 50 ML IV SCH (20:39)
[2016-05-15] MEDS: FLAGYL 500 MG/100 ML 500 MG in PREMIX 100 ML NS 1 BAG IV SCH ×2 (04:18→12:35)
[2016-05-15] MEDS: DUONEB NEB SCH ×2 (05:02→11:09)
[2016-05-15] MEDS: MEDROL DOSEPAK PO SCH ×2 (05:45→12:44)
[2016-05-15 06:00] LABS: BASOPHILS % (AUTO) 0.4 % (0.0-3.0); EOSINOPHILS % (AUTO) 0.2 % (0.0-7.0); HEMATOCRIT 39.2 % (42.0-52.0); HEMOGLOBIN 12.6 g/dl (14.0-18.0); IMMATURE GRANULOCYTE % (AUTO) 1.8 % (0.0-5.0); LYMPHOCYTES # (AUTO) 0.9 K/uL (0.60-3.4); LYMPHOCYTES % (AUTO) 9.1 (10.0-50.0); MEAN CORPUSCULAR HEMOGLOBIN 28.9 pg (27.0-31.0); MEAN CORPUSCULAR HGB CONC 32.1 (31.8-35.4); MEAN CORPUSCULAR VOLUME 89.9 fl (80.0-94.0); MONOCYTES # (AUTO) 0.7 K/uL (0.4-2.0); MONOCYTES % (AUTO) 7.4 (0-10); NEUTROPHILS # (AUTO) 7.9 K/ul (2.0-6.9); NEUTROPHILS % (AUTO) 81.1; PLATELET COUNT 189 10^3/uL (140-440); RED BLOOD COUNT 4.36 10^6/ul (4.70-6.10); WHITE BLOOD COUNT 9.69 K/ul (4.2-10.2)
[2016-05-15 06:11] LABS: ALBUMIN 2.7 g/dL (3.4-5.0); ALBUMIN/GLOBULIN RATIO 1.17; ANION GAP 10.6; BILIRUBIN,TOTAL 0.34 mg/dL (0.00-1.20); BUN/CREATININE RATIO 15.68; CALCIUM 8.3 mg/dL (8.2-10.2); CREATININE 1.02 mg/dL (0.60-1.10); POTASSIUM 4.6 mmol/L (3.5-5.1)
[2016-05-15] MEDS: CALMOSEPTINE OINTMENT TP SCH ×2 (08:45→12:43)
[2016-05-15] MEDS: LOVENOX SUBCUT SCH (08:46)
[2016-05-15] MEDS: ASPIRIN EC PO SCH (08:47)
[2016-05-15] MEDS: ADVAIR 250-50 DISKUS IH SCH (08:47)
[2016-05-15] MEDS: CALCIUM 500 + VIT D 200 MG TABLET PO SCH (08:47)
[2016-05-15] MEDS: SPIRIVA IH SCH (08:48)
[2016-05-15] MEDS: MUCINEX PO SCH (08:48)
[2016-05-15] MEDS: FLORASTOR PO SCH (08:48)
--- NOTE | 2016-05-15 09:14 | PCM.PROG ---
Attending Provider: ATTENDING PROVIDER: Dr. AIME NORIEGA DATE OF SERVICE: 05/15/16 SUBJECTIVE: This 80 year old WHITE/ M was hospitalized 05/09/16. The patient states he is doing well today; he is hungry. He says he is ready to go home. [facility] will resume their care for decubitus care. Will continue Plunkett until healing of coccyx decubitus and redness and irritation in the scrotal area resolves. The patient's cough and shortness of breath are much better. REVIEW OF SYSTEMS: CONSTITUTIONAL: No fever, no chills. ENDOCRINE: No weight loss or weight gain. HEENT: No sinus drainage, no sore throat. CVS: No angina symptoms. No CHF symptoms. No palpitations. No atypical chest pain for CAD. Less shortness of breath. RESPIRATORY: Less cough, no hemoptysis. GI: No melena. No abdominal pain. No nausea, no vomiting. : No hematuria. No polyuria. SKIN: No rash. Stage 2 decubitus ulcer in the coccygeal area. Irritation, redness scrotal area. MUSCULOSKELETAL: No pain. right bka ROLL FINISHER: No blackout, no dizziness. No headache. No double vision. PSYCHIATRIC: Not anxious; no depression. No suicidal thoughts. No homicidal thoughts. PHYSICAL EXAMINATION: cachetic GENERAL: Lying in bed in no distress. VITAL SIGNS: Temperature 96.8 F, Pulse 76, Respiratory Rate 20, BP 110/69, Pulse Ox 100% HEENT: Normocephalic, atraumatic. Mucosa is dry, pallor positive. NECK: No JVP, no carotid bruit. No lymphadenopathy. CARDIAC: S1, S2, no S3. No murmur, gallop or regurgitation. LUNGS: Clear to auscultation. decreased entry ABDOMEN: Soft, non-tender. Bowel sounds active. No rigidity, guarding or CVA tenderness. Decubitus ulcer in the coccygeal area, Stage 2. Irritation and redness in the scrotal area. Plunkett in place to help with healing. EXTREMITIES: No clubbing, cyanosis or edema. NEUROLOGIC: Awake, alert and oriented x3. LYMPHATIC: No palpable lymph nodes SKIN: Not dry. Intact. MUSCULOSKELETAL: No joint swelling. LAB REVIEW: 05/15/16 05:35 05/15/16 05:35 05/15/16 05:35: WBC 9.69, RBC 4.36 L, Hgb 12.6 L, Hct 39.2 L, MCV 89.9, MCH 28.9 , MCHC 32.1, RDW Coeff of [place] 14.8, Plt Count 189, Immature Gran % (Auto) 1.8, Neut % (Auto) 81.1, Lymph % (Auto) 9.1 L, [place] % (Auto) 7.4, Eos % (Auto) 0.2, Baso % (Auto) 0.4, Immature Gran # (Auto) 0.2, Neut # 7.9 H, Lymph # 0.9, [place] # 0.7, Eos # 0.0, Baso # 0.0, Sodium 139, Potassium 4.6, Chloride 103, Carbon Dioxide 30, Anion Gap 10.6, BUN 16, Creatinine 1.02, Estimated GFR (MDRD) 70.00 , BUN/Creatinine Ratio 15.68, Glucose 136 H, Calcium 8.3, Total Bilirubin 0.34, AST 9 L, ALT 9 L, Alkaline Phosphatase 55 L, Total Protein 5.0 L, Albumin 2.7 L , Globulin 2.3, Albumin/Globulin Ratio 1.17 ASSESSMENT: 1. Aspiration pneumonia right lower lobe better 2. Hypotension resolved 3. Hypertension 4. Dyslipidemia 5. Osteoarthritis 6. COPD, oxygen dependent 7. BPH 8. History of right BKA PLAN: 1. Continue Medrol Dosepak. 2. Keflex 500 mg b.i.d. for 5 more days. 3. [facility] to continue for wound care and Plunkett care. 4. Plunkett catheter to remain in until decubitus area and irritation around the scrotal and buttock area is resolved. 5. Oxygen 2L will be continued in the home setting as it is helping the patient with his breathing and helping him to rest better. 6. The patient will be discharged home and will be taken by ambulance as the patient cannot sit upright. 7. The patient is encouraged to eat well. Plan and coordination of the patient's care discussed in the presence of Management Lead and nurse. CONDITION: Stable SCRIBED BY: SULLY GIBBS Decorating Machine Tender scribed while in presence of service performed by Dr. AIME NORIEGA on 05/15/16 ([id number])
--- NOTE | 2016-05-15 11:08 | CM.DICTOOL ---
ADMISSION: 05/09/16 20:00 DISCHARGE: 2016 DATE OF SERVICE: 05/15/16 FINAL DIAGNOSIS Aspiration pneumonia, RLL Hypotension, resolved COPD, oxygen dependent Hypertension BPH Osteoarthritis BKA, Right Dyslipidemia LAST VITALS Temp Pulse Resp BP Pulse Ox 96.8 F L 76 20 110/69 100 05/15/16 05:58 05/15/16 05:58 05/15/16 08:00 05/15/16 05:58 05/15/16 05:58 ACTIVE HOME MEDICATIONS Acetaminophen (Tylenol) 325 mg PO Q4H PRN PRN Reason: Mild Pain Albuterol/Ipratropium (Duoneb) 1 vial NEB bid [facility] Last Admin: 05/15/16 05:02 Dose: 1 vial Aspirin (Aspirin Ec) 81 mg PO DAILYWM [facility] Last Admin: 05/15/16 08:47 Dose: 81 mg Calcium/Vitamin D (Calcium 500 + Vit D 200 Mg Tablet) 1 each PO DAILY [facility] Last Admin: 05/15/16 08:47 Dose: 1 each Guaifenesin (Mucinex) 600 mg PO BID [facility] Last Admin: 05/15/16 08:48 Dose: 600 mg Methylprednisolone (Medrol Dosepak) 4 mg PO 0630 [facility] (new) PRN Reason: Taper Stop: 05/18/16 09:59 Last Admin: 05/15/16 05:45 Dose: 4 mg Polyethylene Glycol (Miralax) 17 gm PO DAILY [facility] Last Admin: 05/13/16 10:23 Dose: Not Given Saccharomyces Boulardii (Florastor) 250 mg PO DAILY [facility] Last Admin: 05/15/16 08:48 Dose: 250 mg Fluticasone/Salmeterol (Advair 250-50 Diskus) 1 puff IH BID [facility] Last Admin: 05/15/16 08:47 Dose: 1 puff Tiotropium [place] (Spiriva) 1 cap IH DAILY [facility] Last Admin: 05/15/16 08:48 Dose: 1 cap Tamsulosin HCL (Flomax) 0.4 mg DAILY Last Admin: ALLERGIES Penicillins Adverse Reaction (Verified 05/09/16 18:38) NEW PRESCRIPTIONS: Keflex 500 mg BID for 5 days Flomax 0.4 mg daily (refill) SMOKING: Not Applicable DISEASE SPECIFIC EDUCATION: Pureed diet Upright position during all oral intake Chávez catheter Position changes Prescription LAB REVIEW: 05/15/16 05:35 05/15/16 05:35 05/15/16 05:35: WBC 9.69, RBC 4.36 L, Hgb 12.6 L, Hct 39.2 L, MCV 89.9, MCH 28.9 , MCHC 32.1, RDW Coeff of [place] 14.8, Plt Count 189, Immature Gran % (Auto) 1.8, Neut % (Auto) 81.1, Lymph % (Auto) 9.1 L, [place] % (Auto) 7.4, Eos % (Auto) 0.2, Baso % (Auto) 0.4, Immature Gran # (Auto) 0.2, Neut # 7.9 H, Lymph # 0.9, [place] # 0.7, Eos # 0.0, Baso # 0.0, Sodium 139, Potassium 4.6, Chloride 103, Carbon Dioxide 30, Anion Gap 10.6, BUN 16, Creatinine 1.02, Estimated GFR (MDRD) 70.00 , BUN/Creatinine Ratio 15.68, Glucose 136 H, Calcium 8.3, Total Bilirubin 0.34, AST 9 L, ALT 9 L, Alkaline Phosphatase 55 L, Total Protein 5.0 L, Albumin 2.7 L , Globulin 2.3, Albumin/Globulin Ratio 1.17 PLAN: Discharge home Diet: Regular, pureed consistency with honey thick liquids Activity: Bed bound, requires frequent turning and position changes. Elevate head of bed during all oral intake Wear oxygen continuously at 2 liters per cannula Continue duoneb treatments twice daily, may give an additional treatment if needed Chávez catheter in place to closed drainage due to Stage 2 decubitus on coccyx and scrotal redness, irritation from urine and stool incontinence. Catheter may be removed by [facility] after healing of the coccyx and scrotum. Please call Dr. Resendiz/Dr. Lowery to schedule a hospital follow-up appointment. [facility] will resume for nursing visits; including respiratory assessment, nutrition, decubitus care, maintenance of chávez catheter. An additional order for Speech Therapy to evaluate and treat is included. No changes in current medications. Mr. Buck is alert and oriented x 3. He has a delayed response to questions at times, but answers are appropriate. He is feeding himself slowly and without difficulty. He is tolerating a pureed diet with honey thick liquids with intakes of 50-100% noted. A chávez catheter is in place with clear yellow urine. A stage decubitus is noted to the coccyx. Bruising noted to the upper extremities. Redness noted to the scrotum, inner thighs and sacrum. Tenderness is also reported to the scrotum. He is incontinent of loose stool this morning. Mr. 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 Hung Loewry MD
--- NOTE | 2016-05-15 11:13 | RS.SLPCNOT ---
Speech Case Note Date of Note: 05/15/16 Title: Dysphagia discharge summary Note: ADVISOR CONSULTANT recommends continued skilled ST services upon discharge from [facility]. Pt family reported, pt to discharge to SNF. ADVISOR CONSULTANT recommends pt to remain on puree diet texture, and with skilled ADVISOR CONSULTANT, begin incorporating trials of mechanical soft sides, no meat at this time. Pt was successful with mechanical soft sides at previous ST session. He consumed 100% of snack without s/s of aspiration and had oral residue 1/10 trials. With consistent modeling, pt increased labial seal and rotary chew efficiency. ADVISOR CONSULTANT recommends pt to continue honey-thick liquids via spoon or open cup. ADVISOR CONSULTANT trialed nectar thick liquid consistency with pt at last treatment session. Pt had 3-5 second swallow delay, required verbal instructions to swallow liquids, and post swallow had 1x cough with wet vocal quality. Pt did not follow instructions to utilize double swallow, but did complete throat clear with a model. Pt to remain on aspiration precautions, utilize safe swallow strategies, and have supervision with meals to increase awareness and decrease risk for choking episode. ADVISOR CONSULTANT wants to note that pt appears fatigue by mid-meal, increasing risk for aspiration. ADVISOR CONSULTANT would recommend smaller, more frequent meals to build strength and reduce fatigue at meal times.
[2016-05-15 11:26] VITALS: BP 100/62; TEMP 97.8
--- NOTE | 2016-06-26 14:56 | DS ---
DATE OF SERVICE: 05/15/16 FINAL DIAGNOSIS: 1. ASPIRATION PNEUMONIA 2. HYPOTENSION, RESOLVED 3. CHRONIC OBSTRUCTIVE PULMONARY DISEASE, OXYGEN DEPENDENT 4. HYPERTENSION 5. BENIGN PROSTATIC HYPERTROPHY 6. OSTEOARTHRITIS 7. BELOW THE KNEE AMPUTEE, RIGHT 8. DYSLIPIDEMIA 9. STATUS POST CHOLECYSTECTOMY DISCHARGE INSTRUCTIONS: 1. Discharge home. 2. Turn every 2 hours and prn. 3. Incontinent care prn, check at least every 2 hours for incontinence 4. Wear oxygen at 2 liters per nasal cannula. 5. Continue DuoNeb treatments every 12 hours, may give additional treatment if needed. 6. Plunkett catheter in place due to decubitus ulcer on coccyx, scrotal redness and irritation. Please maintain a close drainage system. Please empty every 8 hours. 7. May apply Calmoseptine ointment to buttocks and scrotum four times daily for redness and irritation. 8. [facility] to resume care of nursing visits, respiratory assessment , nutrition, decubitus care and maintenance of Plunkett catheter. Please include speech therapy for evaluation and treatment. The Plunkett catheter may be removed by Home Health after healing of decubitus ulcer and scrotal irritation. 9. Please call Dr. Resendiz/Dr. Lowery to schedule a hospital follow up appointment for next week. MEDICATIONS AT DISCHARGE: Continue all home medications. NEW PRESCRIPTIONS: Keflex 500 mg twice daily for 5 days Flomax 0.4 mg daily (refill) Medrol dose pack was started in the hospital and this has been sent home with the patient. Please take as directed with food. DIET INSTRUCTIONS: Regular, pureed consistency with honey thick liquids. Encourage the patient to feed himself and make sure the patient is sitting straight up in bed to eat meals. ACTIVITY: Bed bound, requires frequent turning and position changes. DISEASE SPECIFIC EDUCATION: Pureed diet, upright position during all oral intake, Plunkett catheter, position changes and prescriptions were discussed. Vital signs at discharge were temperature 96.8, pulse 76, respiratory rate 20, blood pressure 110/69, pulse oximetry 100. HOSPITAL COURSE: Deion Buck who is a 80 year old male with a history of COPD and multiple medical problems with a history of lung cancer with tumor removed in 2010. The patient is oxygen dependent and came to the emergency room with a questionable cough, congestion and after having eaten food, so aspiration pneumonia was questionable. CT scan was done in the emergency room and showed chronic obstructive pulmonary disease, normal cardiac silhouette, stable consolidation superior segment right lower lobe with slight increase in dependent consolidation of both lungs. The patient was put on DuoNebs, steroids , Levofloxacin, Lovenox for the DVT prophylaxis, Rocephin 1 gram daily. White count was 12,000, D-Dimer was negative. ABG showed the pH 7.417, PCO2 36.1, PO2 65, BNP 91, cardiac enzymes and Troponin negative. Urine did not show any infection. Influenza was negative. The patient was evaluated for the dysphagia. It did suggest to him taking honey thickened diet for which was started on the patient. Gradually, the patient was improving a lot and feeling better. He had more color. He did have any shortness of breath, PND or orthopnea. Repeat chest x-ray was done on 05/12/16 showing mild bibasilar infiltrate, but clinically a lot better. White count was normalized. As the patient was doing good and did not have complications, the patient was discharged back home with a pureed diet with honey thickened liquids. The patient's , who is the caregiver, took him home. Time spent on the patient is more than 45 minutes today. JEANETTE
--- NOTE | 2016-06-26 15:12 | PN ---
DATE OF SERVICE: 05/12/16 SUBJECTIVE: The patient was admitted with aspiration pneumonia and history of lung cancer and COPD with nonproductive cough. No respiratory distress. Saturation on 2 liters is 98. The patient's nephew in the room. All of the questions were answered. No choking episodes. REVIEW OF SYSTEMS: CONSTITUTIONAL: No fever, no chills. HEENT: Normal. ENDOCRINE: No weight gain, no weight loss. CVS: No angina symptoms. No CHF symptoms. No palpitations. No atypical chest pain for CAD. No shortness of breath. No PND, no orthopnea. RESPIRATORY: Cough, no hemoptysis. GI: No nausea, no vomiting. No abdominal pain. : No hematuria. No polyuria. MUSCULOSKELETAL:. No joint swelling. PSYCHIATRIC: Not anxious. No depression. No suicidal thoughts. No homicidal thoughts. SKIN: Intact. No rash. PHYSICAL EXAMINATION: V/S: Blood pressure 98/51, respiratory rate 18, heart rate 64, temperature 97.8 , saturation 97. HEENT: Normocephalic, atraumatic. Mucosa dry. Pallor positive. No icterus. Ears, eyes, nose and throat normal. NECK: Supple. No JVD, no carotid bruit. No lymphadenopathy. LUNGS: Decreased and some crackles. HEART: S1, S2 normal. No S3. No murmur, gallop or regurgitation. ABDOMEN: Soft, nontender. Bowel sounds active. No rigidity. No rebound or guarding. No CVA tenderness. EXTREMITIES: No clubbing, cyanosis or pedal edema. MUSCULOSKELETAL: Right BKA. NEUROLOGIC: Awake, alert, oriented times three. No focal deficit. LYMPHATIC: No lymph nodes palpable. SKIN: Intact. Labs: White count is 14.54, hemoglobin 11.5, hematocrit 36.7, platelet count 208, sodium 143, potassium 3.9, chloride 110, BUN 21, creatinine 1.05, glucose 162. ASSESSMENT: 1. ASPIRATION PNEUMONIA 2. LUNG CANCER 3. CHRONIC OBSTRUCTIVE PULMONARY DISEASE, OXYGEN DEPENDENT 4. RIGHT BELOW KNEE AMPUTATION 5. CHOLECYSTECTOMY 6. APPENDECTOMY 7. CORONARY ARTERY DISEASE 8. ANEMIA. PLAN: 1. Continue the DuoNeb, Lovenox, Flagyl IV, Rocephin and Solu-Medrol. 2. Daily I & O's. 3. Will follow the patient in daily rounds. TIME SPENT: More than 30 minutes MTDD
--- NOTE | 2016-10-07 13:06 | PN ---
DATE OF SERVICE: 05/12/16 SUBJECTIVE: The patient was admitted with aspiration pneumonia, shortness of breath. His breathing is better and he has less coughing. Nonproductive cough. No PND, no orthopnea and no fever or chills. Saturations are 98 on 2 liters. REVIEW OF SYSTEMS: CONSTITUTIONAL: No fever, no chills. HEENT: Normal. ENDOCRINE: No weight gain, no weight loss. CVS: No angina symptoms. No CHF symptoms. No palpitations. No atypical chest pain for CAD. Shortness of breath. No PND, no orthopnea. RESPIRATORY: Nonproductive cough, which is less. No hemoptysis. GI: No nausea, no vomiting. No abdominal pain. : No hematuria. No polyuria. MUSCULOSKELETAL:. No joint swelling. PSYCHIATRIC: Not anxious. No depression. No suicidal thoughts. No homicidal thoughts. SKIN: Intact. No rash. PHYSICAL EXAMINATION: V/S: Blood pressure is 98/51, respiratory rate 18, heart rate 64, temperature 97.8. GENERAL: Cachectic male lying in the bed and not in any distress. HEENT: Normocephalic, atraumatic. Mucosa dry. Pallor positive. No icterus. NECK: Supple. No JVD, no carotid bruit. No lymphadenopathy. LUNGS: Decreased and basilar crackles with mild expiratory wheeze. No rales or rhonchi. HEART: S1, S2 normal. No S3. No murmur, gallop or regurgitation. ABDOMEN: Soft, nontender. Bowel sounds active. No rigidity. No rebound or guarding. No CVA tenderness. EXTREMITIES: Right BKA. No clubbing, cyanosis or pedal edema. MUSCULOSKELETAL: No joint swelling. NEUROLOGIC: Awake, alert, oriented times three. No focal deficit. LYMPHATIC: No lymph nodes palpable. SKIN: Intact. LABS: White count 14.5, hemoglobin 11.5, platelet count 208, sodium 142, potassium 3.9, chloride 110, bicarb 25, BUN 21, creatinine 1.05, glucose 162. ASSESSMENT: 1. ASPIRATION PNEUMONIA 2. HISTORY OF LUNG CANCER WITH TUMOR REMOVED 3. COPD 4. RIGHT BELOW KNEE AMPUTATION 5. CHOLECYSTECTOMY 6. APPENDECTOMY 7. CORONARY ARTERY DISEASE 8. ANEMIA PLAN: 1. Continue the DuoNeb, Lovenox, Flagyl, Rocephin and Solu-Medrol. 2. Daily I & O's. 3. Will follow up with the patient in daily rounds. TIME SPENT: More than 30 minutes MTDD
--- NOTE | 2016-10-15 13:32 | HP ---
DATE OF SERVICE: 05/09/16 - Dr. Resendiz CHIEF COMPLAINT: Shortness of air HISTORY OF PRESENT ILLNESS: This is a 80-year-old White/ male who was seen in the emergency room with vomiting and shortness of air. He states that he had been coughing with congestion and had gotten a prescription for antibiotics. REVIEW OF SYSTEMS: CONSTITUTIONAL: Weakness, fever. HEENT: Normal. ENDOCRINE: No weight gain; no weight loss. CVS: No chest pain. No PND, no orthopnea. Shortness of breath. No PND, no orthopnea. RESPIRATORY: Cough and congestion. No hemoptysis. GI: Nausea and vomiting. No abdominal pain. No melena. : No hematuria. No polyuria. MUSCULOSKELETAL: Arthritic pain. PSYCHIATRIC: Not anxious. No depression. No suicidal thoughts. No homicidal thoughts. SKIN: Intact, no open lesions. 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 Former smoker. No history of substance abuse. No alcohol use. MEDICATIONS: (HOME) Fluticasone/Salmeterol one each IH b.i.d. Tiotropium [place] one cap IH daily Guaifenesin 600 mg p.o. b.i.d. Acetaminophen 325 mg p.o q4h p.r.n Tamsulosin 0.4 mg p.o. daily Lactobac Cmb #3/Fos/Pantethine (Probiotic & Acidophilus cap) one each p.o. daily Aspirin 81 mg p.o. daily Calcium Carbonate/Vitamin D3 one each p.o. daily Polyethylene Glycol (Miralax) 17 gm p.o. daily Ipratropium/Albuterol (Duoneb) one vial neb b.i.d. ALLERGIES: PENICILLIN PHYSICAL EXAMINATION: V/S: Temperature 99.3, pulse 122, respiratory rate 24, BP 110/65, pulse ox 92. HEENT: Atraumatic, normocephalic. Nasal congestion. No scleral icterus. Pallor positive. Mucosa dry. NECK: Supple. No JVD, no bruit. No lymphadenopathy. No thyromegaly. HEART: S1, S2 normal. No murmur. No cyanosis or clubbing. No ascites. LUNGS: Breath sounds diminished. ABDOMEN: Soft, nontender. Bowel sounds are active. No CVA tenderness. No rigidity or guarding. EXTREMITIES: No cyanosis, clubbing or pedal edema. Right BKA. MUSCULOSKELETAL: Normal joints, no swelling. NEUROLOGIC: The patient is awake, alert, oriented. SKIN: Intact; no open lesions. LYMPHATIC: No lymph nodes palpable. LABS/RADIOLOGY: WBC 13.05, hgb 14.0, platelets 205, HCT 44.1. Chemistry: Sodium 140, chloride 103, BUN 12, glucose 131, potassium 4.0, c02 25, creatinine 1.13. CT scan thorax without contrast revealed - chronic obstructive pulmonary disease; normal sized cardiac silhouette with extensive coronary artery calcification. Stable consolidation superior segment right lower lobe with slight increase in dependent consolidation both lung bases with tiny bilateral pleural effusions. Prior cholecystectomy with pneumobilia. CT scan abdomen and pelvis without contrast: Gallbladder has been removed with interval pneumobilia and air in the common duct; mild bibasilar consolidation versus atelectasis with mild emphysematous disease; unchanged infrarenal abdominal aortic aneurysm; prostate is enlarged. ASSESSMENT: 1. BILATERAL RIGHT LOWER LOBE PNEUMONIA MOST LIKELY ASPIRATION 2. COPD, OXYGEN DEPENDENT 3. HYPERTENSION 4. DYSLIPIDEMIA 5. STATUS POST RIGHT BELOW THE KNEE AMPUTATION 6. CANCER, LUNG PLAN: 1. Continue the Rocephin and Flagyl 2. Duoneb 3. Solu-Medrol 4. Lovenox for DVT prophylaxis MTDD
== END 2016-05-15 15:10 | disposition short-term general hospital (02) | DRG 179 ==
LOC: ED 18:32 → MEDSURG A 20:00 → SCU 20:33
PROVIDERS: ADMIT Emergency Medicine; ATTEND Emergency Medicine
DX: J69.0 Pneumonitis due to inhalation of food and vomit (principal); J44.9 Chronic obstructive pulmonary disease, unspecified; I95.9 Hypotension, unspecified; E86.0 Dehydration; I10 Essential (primary) hypertension; R13.10 Dysphagia, unspecified; N40.0 Benign prostatic hyperplasia without lower urinary tract symptoms; N50.82 Scrotal pain; R39.198 Other difficulties with micturition; L89.152 Pressure ulcer of sacral region, stage 2; M19.90 Unspecified osteoarthritis, unspecified site; E78.5 Hyperlipidemia, unspecified; Z99.81 Dependence on supplemental oxygen; Z85.118 Personal history of other malignant neoplasm of bronchus and lung; Z79.899 Other long term (current) drug therapy; Z87.891 Personal history of nicotine dependence; Z89.511 Acquired absence of right leg below knee
CPT/HCPCS: 36415; 80053; 81001; 82550; 82803; 83880; 84484; 85025; 85379; 87040; 87651; 87804; 87880; 93005; 93010; 94640; 97802; 99284

== ENCOUNTER 2016-05-15 15:22 | Outpatient (CLI) | END 2016-05-15 15:23 | disposition home or self-care (01) | LOC: AMBL 15:22 | PROVIDERS: ATTEND Internal Medicine | DX: Z74.01 Bed confinement status (principal); Z99.81 Dependence on supplemental oxygen ==

== ENCOUNTER 2016-06-04 23:55 | Outpatient (CLI) ==
[2016-06-05 03:58] VITALS: BMI 16.1
== END 2016-06-04 23:56 ==
LOC: AMBL 23:55
PROVIDERS: ATTEND Family Medicine
DX: R50.9 Fever, unspecified (principal); R11.2 Nausea with vomiting, unspecified; R00.0 Tachycardia, unspecified; J44.9 Chronic obstructive pulmonary disease, unspecified; Z99.81 Dependence on supplemental oxygen; Z85.118 Personal history of other malignant neoplasm of bronchus and lung

== ENCOUNTER 2016-06-05 00:17 | Inpatient (IN) | payer OTHER ==
[2016-06-05] MEDS ORDERED: SODIUM CHLORIDE 1,000 ML IV STA ×2 (00:40→00:45)
[2016-06-05] MEDS ORDERED: LEVAQUIN 500 MG in PREMIX 100 ML D5W 1 BAG IV STA (00:40)
[2016-06-05] MEDS ORDERED: LEVAQUIN 100 ML IV ONE (00:52)
[2016-06-05 01:03] LABS: BASOPHILS % (AUTO) 0.3 % (0.0-3.0); EOSINOPHILS # (AUTO) 0.1 K/ul (0.0-0.7); EOSINOPHILS % (AUTO) 0.6 % (0.0-7.0); HEMATOCRIT 41.6 % (42.0-52.0); HEMOGLOBIN 13.7 g/dl (14.0-18.0); IMMATURE GRANULOCYTE % (AUTO) 0.5 % (0.0-5.0); LYMPHOCYTES # (AUTO) 0.4 K/uL (0.60-3.4); LYMPHOCYTES % (AUTO) 3.5 (10.0-50.0); MEAN CORPUSCULAR HEMOGLOBIN 29.2 pg (27.0-31.0); MEAN CORPUSCULAR HGB CONC 32.9 (31.8-35.4); MEAN CORPUSCULAR VOLUME 88.7 fl (80.0-94.0); MONOCYTES # (AUTO) 0.5 K/uL (0.4-2.0); MONOCYTES % (AUTO) 3.9 (0-10); NEUTROPHILS # (AUTO) 10.7 K/ul (2.0-6.9); NEUTROPHILS % (AUTO) 91.2; PLATELET COUNT 150 10^3/uL (140-440); RED BLOOD COUNT 4.69 10^6/ul (4.70-6.10); WHITE BLOOD COUNT 11.77 K/ul (4.2-10.2)
[2016-06-05] MEDS: SODIUM CHLORIDE 1,000 ML IV STA ×2 (01:05→03:04)
[2016-06-05 01:12] LABS: ABG BASE EXCESS 0 (-2.0-2.0); ABG HCO3 23.6 (22.0-26.0); ABG PCO2 32.4 mmHg (35-45); ABG PH 7.47 (7.35-7.45); ABG TCO2 25 (22.0-28.0)
[2016-06-05 01:13] LABS: BILIRUBIN,URINE 1+ (NEGATIVE); KETONES,URINE 2+ (NEGATIVE); LEUKOCYTE ESTERASE ,URINE 1+ (NEGATIVE); NITRITE,URINE Negative (NEGATIVE); PROTEIN,URINE 1+ (NEGATIVE); URINE, BLOOD 3+ (NEGATIVE)
[2016-06-05 01:14] LABS: ADD URINE MICROSCOPIC YES
[2016-06-05 01:21] LABS: FLU INTERNAL QC INTERNAL QC VALID; RAPID FLU A NEGATIVE (NEGATIVE); RAPID FLU B NEGATIVE (NEGATIVE)
[2016-06-05 01:24] LABS: ALBUMIN 3.2 g/dL (3.4-5.0); ALBUMIN/GLOBULIN RATIO 1.07; ANION GAP 14.7; BILIRUBIN,TOTAL 1.9 mg/dL (0.00-1.20); BUN/CREATININE RATIO 18.26; CALCIUM 9.1 mg/dL (8.2-10.2); CREATININE 1.04 mg/dL (0.60-1.10); POTASSIUM 3.7 mmol/L (3.5-5.1); TOTAL PROTEIN 6.2 g/dL (5.8-8.1)
[2016-06-05 01:27] LABS: BACTERIA,URINE 2+ (NOT PRESENT)
[2016-06-05 01:37] LABS: ERYTHROCYTE SEDIMENTATION RATE 32 mm/hr (0-15); ESR INTERNAL QC INTERNAL QC VALID
[2016-06-05 01:41] LABS: TROPONIN I 0.01 ng/ml (0.0000-0.4000)
--- NOTE | 2016-06-05 02:07 | CT ---
EXAM: CT chest without intravenous contrast 06/05/2016. Sagittal and coronal reformatted images ob tained HISTORY: Cough. COMPARISON: 05/09/2016 FINDINGS: The heart size appears within normal limits. No pericardial effusion. Severe emphysematous changes. Multifocal atelectasis/scarring. Patchy consolidation within the dependent aspect of both lungs may relate to atelectasis and/or pneu monia. Consolidation within the dependent portion of the lungs has improved as compared to the prio r study. There is no pleural effusion or pneumothorax. Right chest port is in place and appears well positioned. Status post cholecystectomy. No acute osseous abnormality. Partial compression fracture of T7 appe ars chronic. IMPRESSION: 1. Consolidation within the dependent aspect of both lungs has improved since the prior study. The re are residual areas of consolidation which may represent atelectasis and/or pneumonia. 2. Severe emphysema. 3. Diffuse bronchial wall thickening may relate to bronchitis/bronchiolitis. 4. No pleural effusion or pneumothorax. 5. Status post cholecystectomy.
--- NOTE | 2016-06-05 02:16 | CT ---
EXAM: CT of the abdomen pelvis without intravenous contrast 06/05/2016. Sagittal and coronal refor matted images obtained HISTORY: Vomiting and cough COMPARISON: 05/09/2016 FINDINGS: The liver shows no acute abnormality. The gallbladder has been removed. Pneumobilia is present. The adrenal glands and kidneys show no acute abnormality. No hydronephrosis. The spleen and pancre as show no acute process. Infrarenal abdominal aortic aneurysm is present. On axial series image 53 this measures 3.5 x 3.1 c m diameter. This appears stable. Markedly severe atherosclerotic vascular disease. 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 Multifocal high-grade stenosis within the iliac arteries. Postoperative changes of the proximal right femur. IMPRESSION: 1. Status post cholecystectomy with pneumobilia. 2. Stable infrarenal abdominal aortic aneurysm. 3. Markedly severe atherosclerotic vascular disease. 4. The prostate gland appears enlarged. Plunkett catheter is present within the urinary bladder. 5. Technically limited examination due to the lack of intravenous contrast. 6. Multilevel severe degenerative disc disease. Multilevel chronic spinal and neural foraminal ronald nosis. Spinal stenosis appears most severe at L4-L5.
--- NOTE | 2016-06-05 02:32 | ED.PDOC ---
General ED Provider: Dr. DEEPTI QUINN-ER Chief Complaint: Nausea/Vomiting Stated Complaint: hes coughing and running a fever--we think he aspirated again Time Seen by Physician: 00:20 Mode of Arrival: Ambulance Information Source: Family, EMT Exam Limitations: No limitations Primary Care Provider: SEAN BIRMINGHAM Nursing and Triage Documentation Reviewed and Agree: Yes Respiratory Complaint Exam - Respiratory Complaint/Exam Onset/Duration: 24hrs Symptoms Are: Still present Timing: Intermittent Initial Severity: Mild Current Severity: Mild Location: Chest Character: Reports: Non-productive cough Aggravating: Reports: URI Associated Signs and Symptoms: Reports: Fever, Wheezing, URI, Vomiting, Decreased oral intake. Denies: Rapid breathing, Dyspnea, Chills, Chest pain, Pleuritic chest pain, Hemoptysis, Dizziness, Calf pain, Calf swelling, Edema, Nasal congestion, Hoarseness, Sinus discomfort, Sore throat, Weight loss, Increased thirst, Increased appetite, Increased urination Related History: Reports: Similar episode History of Healthcare-Acquired Pneumonia: No Related Surgical History: Reports: None Pulmonary Embolism Risk Factors: None Pseudomonas Risk Factors: Reports: Chronic Lung Disease Status Asthmaticus Risk Factors: Reports: None Home Oxygen Use: No Recent Stress Test: No Recent Echo/LV Function: No Current Antibiotic Use: No Current Asthma Medication Use: No Respiratory Distress: None Inadequate Respiratory Effort: No Dysphagia Present: No Stridor Present: No JVD Present: No Accessory Muscle Use: No Retractions: Not Present Diminished Breath Sounds: No Sinus Tenderness: None Grunting Respirations: No Kussmaul Respirations: No Differential Diagnoses: Pneumonia Non-Traumatic Chest Pain Syncope: EKG Performed Review of Systems - Review Of Systems Constitutional: Reports: Fever Eyes: Reports: No symptoms Ears, Nose, Mouth, Throat: Reports: No symptoms Respiratory: Reports: Cough Cardiac: Reports: No symptoms GI: Reports: No symptoms : Reports: No symptoms Musculoskeletal: Reports: No symptoms Skin: Reports: No symptoms Neurological: Reports: No symptoms Endocrine: Reports: No symptoms Hematologic/Lymphatic: Reports: No symptoms All Other Systems: Reviewed and Negative Past Medical History - Past Medical History Previously Healthy: Yes Endocrine: Reports: None Cardiovascular: Reports: None Respiratory: Reports: COPD Hematological: Reports: None Gastrointestinal: Reports: None Genitourinary: Reports: None Neuro/Psych: Reports: None Musculoskeletal: Reports: Arthritis 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 ), Other (Mediport ) - Family History Family History: Reports: None - Social History Smoking Status: Former smoker Hx Substance Use: No Alcohol Screening: None Lives: With family - Immunizations Tetanus Shot up to Date: No (unsure) Physical Exam - Physical Exam Appearance: Well-appearing, No pain distress, Well-nourished Eyes: MIRYAM, EOMI, Conjunctiva clear ENT: Ears normal Neck: Supple Respiratory: Crackles, Rhonchi Cardiovascular: RRR GI/: Soft, Nontender, No masses, Bowel sounds normal, No Organomegaly Musculoskeletal: Normal strength, ROM intact, No edema, No calf tenderness Skin: Warm Neurological: Sensation intact Psychiatric: Affect appropriate Interpretation - Radiology Interpretation Radiology Interpretation By: Radiologist Radiology Results: Positive Exam Interpreted: CT Scan - EKG Interpretation Time of EKG #1: 02:32 Rate: Tachy Rhythm: Sinus Ectopy: None [place]: NL ST Segment: Normal Re-Evaluation - Re-Evaluation Time of Re-Evaluation: 02:33 Status: Improved Vital Signs Stable: Yes Pain Level: 0 Appearance: NAD Lungs: Clear Skin: Warm and Dry Neuro: Alert and Oriented X3 CV: RRR Physician Notification - Case Discussed Physician Notified: dr clement Time of Notification: 02:33 Critical Care Note - Critical Care Note Total Time (mins): 15 Course - Course Hematology/Chemistry: 06/05/16 00:55 06/05/16 00:55 Orders, Labs, Meds: Lab Review 06/05/16 06/05/16 00:38 00:55 WBC 11.77 H RBC 4.69 L Hgb 13.7 L Hct 41.6 L MCV 88.7 MCH 29.2 MCHC 32.9 RDW Coeff of [place] 16.9 H Plt Count 150 Immature Gran % (Auto) 0.5 Neut % (Auto) 91.2 Lymph % (Auto) 3.5 L [place] % (Auto) 3.9 Eos % (Auto) 0.6 Baso % (Auto) 0.3 Immature Gran # (Auto) 0.1 Neut # 10.7 H Lymph # 0.4 L [place] # 0.5 Eos # 0.1 Baso # 0.0 ESR 32 H D-Dimer 4.30 Puncture Site Lb O2 Saturation 95.0 ABG pH 7.47 H ABG pCO2 32.4 L ABG pO2 70.0 L ABG HCO3 23.6 ABG Total CO2 25 ABG Base Excess 0 [place] Test + O2 Delivery Device Bnc Oxygen Liter Flow 2.00 FiO2 % 28.0 Sodium 137 Potassium 3.7 Chloride 105 Carbon Dioxide 21 L Anion Gap 14.7 BUN 19 H Creatinine 1.04 Estimated GFR (MDRD) 69.00 BUN/Creatinine Ratio 18.26 Glucose 122 H Calcium 9.1 Total Bilirubin 1.90 H AST 18 ALT 11 L Alkaline Phosphatase 65 Total Creatine Kinase 43 Troponin I 0.0100 Total Protein 6.2 Albumin 3.2 L Globulin 3.0 Albumin/Globulin Ratio 1.07 Amylase 48 Lipase 15 Procalcitonin 0.10 Urine Color Margo Urine Clarity Cloudy Urine pH 5.0 Ur Specific [place] 1.025 Urine Protein 1+ Urine Glucose (UA) Negative Urine Ketones 2+ Urine Blood 3+ Urine Nitrite Negative Urine Bilirubin 1+ Urine Urobilinogen 0.2 Ur Leukocyte Esterase 1+ Urine Microscopic RBC 10-20 Urine Microscopic WBC 5-10 Ur Squamous Epith Cells Not present Urine Bacteria 2+ Hyaline Casts 2-5 Granular Casts 2-5 Influenza A (Rapid) Negative Influenza B (Rapid) Negative Orders Category Date Time Status ABG DRAW REQUEST Stat CARDIO 06/05/16 00:39 Completed EKG-(ED ONLY) Stat CARDIO 06/05/16 00:39 Completed ED IV/MEDIPORT/POWERPORT .ONCE EMERGENCY 06/05/16 00:40 Active ABG Stat LAB 06/05/16 00:38 Completed AMYLASE Stat LAB 06/05/16 00:55 Completed BLOOD CULTURE Stat LAB 06/05/16 00:55 Received CBC W/ AUTO DIFF Stat LAB 06/05/16 00:55 Completed COMPREHENSIVE METABOLIC PANEL Stat LAB 06/05/16 00:55 Completed CREATINE KINASE Stat LAB 06/05/16 00:55 Completed D-DIMER Stat LAB 06/05/16 00:55 Completed ESR Stat LAB 06/05/16 00:55 Completed LIPASE Stat LAB 06/05/16 00:55 Completed PROCALCITONIN Stat LAB 06/05/16 00:55 Completed RAPID FLU A/B Stat LAB 06/05/16 00:55 Completed TROPONIN I Stat LAB 06/05/16 00:55 Completed URINALYSIS C & S IF INDICATED Stat LAB 06/05/16 00:55 Completed URINE CULTURE Routine LAB 06/05/16 01:27 Received 0.9 % Sodium Chloride [Saline Flush] MEDS 06/05/16 00:40 Ordered 1 syr IVF PRN PRN Levofloxacin/D5w [Levaquin] 100 ml MEDS 06/05/16 00:52 Discontinued IV .STK-MED Levofloxacin/D5w [Levaquin] 500 mg MEDS 06/05/16 00:40 Discontinued Premix 100 ml D5w 1 bag IV ONCE Sodium Chloride 0.9% [Sodium Chloride] 1,000 ml MEDS 06/05/16 00:45 Discontinued IV 1,000 mls/hr Sodium Chloride 0.9% [Sodium Chloride] 1,000 ml MEDS 06/05/16 00:40 Discontinued IV 100 mls/hr Sodium Chloride 0.9% [Sodium Chloride] 1,000 ml MEDS 06/05/16 00:44 Active IV 100 mls/hr CT ABDOMEN/PELVIS WO CONTRAST Stat RADS 06/05/16 00:[address] CHEST W/O CONTRAST Stat RADS 06/05/16 00:41 Completed Medications Generic Name Dose Route Start Last Admin Trade Name Freq PRN Reason Stop Dose Admin Sodium Chloride 1,000 mls @ 100 mls/hr 06/05/16 00:44 06/05/16 01:05 Sodium Chloride IV 06/05/16 10:43 Not Given .Q10H STA Sodium Chloride 1 syr 06/05/16 00:40 Saline Flush IVF PRN PRN To flush IV Discontinued Medications Generic Name Dose Route Start Last Admin Trade Name Freq PRN Reason Stop Dose Admin Levofloxacin/Dextrose 500 mg/ 100 mls @ 100 mls/hr 06/05/16 00:40 06/05/16 01 :04 Dextrose IV 06/05/16 01:39 100 mls/hr ONCE STA Administration Sodium Chloride 1,000 mls @ 100 mls/hr 06/05/16 00:40 06/05/16 01:25 Sodium Chloride IV 06/05/16 10:39 Not Given .Q10H STA Sodium Chloride 1,000 mls @ 1,000 mls/hr 06/05/16 00:45 06/05/16 01:05 Sodium Chloride IV 06/05/16 01:39 1,000 mls/hr .Q1H STA Administration Vital Signs: Temp Pulse Resp BP Pulse Ox 06/05/16 00:18 100.4 F H 109 H 32 H 103/60 91 L Departure - Departure Time of Disposition: 02:33 Disposition: ADMITTED INPATIENT Discharge Problem: Pneumonia Qualifiers: Pneumonia type: due to unspecified organism Laterality: unspecified laterality Lung location: unspecified part of lung Qualifier Code: (J18.9) Pneumonia, unspecified organism Instructions: Pneumonia (ED) Condition: Poor Pt referred to PMD for follow-up: Yes Allergies/Adverse Reactions: Allergies Penicillins Adverse Reaction (Verified 06/05/16 01:15) Home Medications: Ambulatory Orders Fluticasone/Salmeterol [Advair 250-50 Diskus] 1 each IH BID 04/01/13 Tiotropium [place] [Spiriva] 1 cap IH DAILY 04/01/13 Acetaminophen [Tylenol] 325 mg PO Q4H PRN 08/12/13 Guaifenesin [Mucinex] 600 mg PO BID 08/12/13 Aspirin [Adult Low Dose Aspirin EC] 81 mg PO DAILY 10/01/15 Lactobac Cmb #3/Fos/Pantethine [Probiotic & Acidophilus Cap] 1 each PO DAILY 11/08 Tamsulosin HCl [Flomax] 0.4 mg PO DAILY 10/01/15 Calcium Carbonate/Vitamin D3 [Caltrate 600 + D Tablet] 1 each PO DAILY 05/09/16 Ipratropium/Albuterol Neb [Duoneb] 1 vial NEB BID 05/09/16 Polyethylene Glycol 3350 [Miralax] 17 gm PO DAILY PRN 05/09/16 Disposition Discussed With: Patient, Family
[2016-06-05] MEDS ORDERED: TYLENOL PO PRN (02:35)
[2016-06-05] MEDS ORDERED: MIRALAX PO PRN (02:38)
[2016-06-05] MEDS ORDERED: AZACTAM ONE (03:07)
[2016-06-05] MEDS: AZACTAM 1 GM in SODIUM CHLORIDE 100 ML IV SCH ×5 (03:13→21:12)
[2016-06-05] MEDS ORDERED: SODIUM CHLORIDE 100 ML IV ONE (03:15)
[2016-06-05 03:58] VITALS: BMI 16.1
[2016-06-05] MEDS ORDERED: DUONEB NEB ONE (04:13)
[2016-06-05] MEDS: VANCOMYCIN 1 GM in SODIUM CHLORIDE 250 ML IV SCH ×2 (04:19→09:00)
[2016-06-05] MEDS: DUONEB NEB SCH ×2 (05:50→17:15)
[2016-06-05] MEDS ORDERED: DUONEB NEB SCH (09:00)
[2016-06-05] MEDS ORDERED: NON-FORMULARY MEDICATION (Calcium Carbonate/Vitamin D3 [Caltrate 600 Plus D3 Tablet] 1 EAC PO SCH (09:00)
[2016-06-05] MEDS ORDERED: GUAIFENESIN 600 MG PO SCH (09:00)
[2016-06-05] MEDS: ADVAIR 250-50 DISKUS IH SCH ×2 (10:03→21:12)
[2016-06-05] MEDS: SPIRIVA IH SCH (10:03)
[2016-06-05] MEDS: CALCIUM 500 + VIT D 200 MG TABLET PO SCH (10:03)
[2016-06-05] MEDS: FLOMAX PO SCH (10:04)
[2016-06-05] MEDS: LOVENOX SUBCUT SCH (10:04)
[2016-06-05] MEDS: MUCINEX PO SCH ×2 (10:04→21:12)
[2016-06-05] MEDS: ASPIRIN EC PO SCH (10:04)
[2016-06-05] MEDS: [UNRECOGNIZED DRUG - OTHER] PO SCH (10:05)
--- NOTE | 2016-06-05 11:53 | HP ---
SEEN BY DR. NORIEGA CHIEF COMPLAINT/HISTORY OF PRESENT ILLNESS: The patient was admitted with questionable aspiration pneumonia. The patient was recently in the hospital with similar problems and discharged home. Last night, while having dinner, the patient was having choking episodes as noted by family with coughing, feverish, difficulty breathing. The ambulance was called and the patient was brought to the ER. Dr. Escobar saw and evaluated the patient. CT scan showed improved pneumonia/consolidation since the prior study. The patient was admitted to the hospital with fever and questionable aspiration pneumonia. As of now, the patient is not in any distress, lying in bed comfortably. REVIEW OF SYSTEMS: CONSTITUTIONAL: Fever, weakness. CVS: No angina, no CHF symptoms, no palpitations, no atypical chest pain, no shortness of breath. ENDOCRINE: No weight loss, no weight gain. HEENT: No sinus drainage, no sore throat. GASTROINTESTINAL: No melena or abdominal pain, no GERD. GENITOURINARY: No hematuria, no prostatism, no polyuria. MUSCULOSKELETAL: No osteoarthritis pain, no joint swelling. Right BKA. FIELD RETURN REPAIRER: No blackout, no dizziness, no headache, no double vision. RESPIRATORY: Cough and congestion. SKIN: Not dry, no rash PSYCHIATRIC: Not anxious, no depression, no suicidal thoughts, no homicidal thoughts. PAST MEDICAL HISTORY: Chronic obstructive pulmonary disease, oxygen dependent Coronary artery disease Abdominal aortic aneurysm History of lung cancer with status post lobectomy in 2010 GERD Anemia PAST SURGICAL HISTORY: Appendectomy Right below knee amputation Cataracts Carpal tunnel syndrome surgery [facility] SOCIAL HISTORY: , lives with his . Former smoker. No alcohol use. Partially dependent on ADLs. FAMILY HISTORY: Not significant. MEDICATIONS: (HOME) Fluticasone/Salmeterol (Advair 250-50 Diskus) one each IH b.i.d. Tiotropium [place] (Spiriva) one cap IH daily Guaifenesin (Mucinex) 600 mg p.o. b.i.d. Acetaminophen (Tylenol) 325 mg p.o. q.4h p.r.n. Tamsulosin (Flomax) 0.4 mg p.o. daily Lactobac (probiotic and Acidophilus cap) one each p.o. daily Aspirin 81 mg p.o. daily Calcium Carbonate/Vitamin D3 one each p.o. daily Polyethylene Glycol 3350 (Miralax) 17 gm p.o. daily p.r.n. Ipratropium/Albuterol one vial neb b.i.d. ALLERGIES: PENICILLINS PHYSICAL EXAMINATION: V/S: Height: 6', Weight: 119 lb, 3.2 oz. Temperature 98.0, pulse 102, BP 95/59 , respiratory rate 21, 02 94%/NC/3L GENERAL APPEARANCE: Oriented times three. Cachectic appearing, does not look toxic. HEENT: Normal. NECK: No JVP, no bruits. LUNGS: Decreased entry, some basilar crackles. EXTREMITIES: Edema, Pulses +1, equal. Right below-knee amputation. CARDIOVASCULAR: S1, S2, no S3, no murmurs. No cyanosis, clubbing. No ascites. GI/ABDOMEN: No tenderness. Bowel sounds are active. FIELD RETURN REPAIRER: Deep tendon reflexes, sensory, motor normal. ASSESSMENT: Shortness of breath secondary to aspiration pneumonia Fever secondary to above Choking episodes History of COPD, oxygen dependent Hypertension Dyslipidemia Status post right BKA PLAN: Admit to regular floor CBC, CMP today and daily Azactam and Vancomycin Duonebs Swallow evaluation today Clear liquids Mihaela Cabrera, Culinary Worker, scribed while in the presence of service performed by Dr. Hung Noriega M.D. on 06/05/16 ([id number]) JEANETTE
[2016-06-06] MEDS: AZACTAM 1 GM in SODIUM CHLORIDE 100 ML IV SCH ×3 (05:24→20:59)
[2016-06-06] MEDS: DUONEB NEB SCH ×2 (05:33→18:27)
[2016-06-06 07:55] LABS: BASOPHILS % (AUTO) 0.4 % (0.0-3.0); EOSINOPHILS # (AUTO) 0.2 K/ul (0.0-0.7); EOSINOPHILS % (AUTO) 2.3 % (0.0-7.0); HEMOGLOBIN 11.9 g/dl (14.0-18.0); IMMATURE GRANULOCYTE % (AUTO) 0.9 % (0.0-5.0); LYMPHOCYTES # (AUTO) 0.7 K/uL (0.60-3.4); LYMPHOCYTES % (AUTO) 9.4 (10.0-50.0); MEAN CORPUSCULAR HEMOGLOBIN 30.1 pg (27.0-31.0); MEAN CORPUSCULAR HGB CONC 33.1 (31.8-35.4); MEAN CORPUSCULAR VOLUME 90.9 fl (80.0-94.0); MONOCYTES # (AUTO) 0.6 K/uL (0.4-2.0); MONOCYTES % (AUTO) 7.2 (0-10); NEUTROPHILS # (AUTO) 6.2 K/ul (2.0-6.9); NEUTROPHILS % (AUTO) 79.8; PLATELET COUNT 150 10^3/uL (140-440); RED BLOOD COUNT 3.96 10^6/ul (4.70-6.10); WHITE BLOOD COUNT 7.79 K/ul (4.2-10.2)
[2016-06-06 08:17] LABS: ALBUMIN 2.6 g/dL (3.4-5.0); ALBUMIN/GLOBULIN RATIO 0.96; ANION GAP 10.9; BILIRUBIN,TOTAL 0.78 mg/dL (0.00-1.20); BUN/CREATININE RATIO 14.43; CALCIUM 8.5 mg/dL (8.2-10.2); CREATININE 0.97 mg/dL (0.60-1.10); POTASSIUM 3.9 mmol/L (3.5-5.1); TOTAL PROTEIN 5.3 g/dL (5.8-8.1)
[2016-06-06] MEDS: MUCINEX PO SCH ×2 (08:34→20:58)
[2016-06-06] MEDS: FLOMAX PO SCH (08:34)
[2016-06-06] MEDS: CALCIUM 500 + VIT D 200 MG TABLET PO SCH (08:34)
[2016-06-06] MEDS: ASPIRIN EC PO SCH (08:35)
[2016-06-06] MEDS: SPIRIVA IH SCH (08:35)
[2016-06-06] MEDS: VANCOMYCIN 1 GM in SODIUM CHLORIDE 250 ML IV SCH (08:35)
[2016-06-06] MEDS: LOVENOX SUBCUT SCH (08:35)
[2016-06-06] MEDS: ADVAIR 250-50 DISKUS IH SCH ×2 (08:35→20:58)
[2016-06-06] MEDS: [UNRECOGNIZED DRUG - OTHER] PO SCH (08:55)
[2016-06-06] MEDS: SODIUM CHLORIDE 1,000 ML IV SCH (14:40)
[2016-06-07] MEDS: AZACTAM 1 GM in SODIUM CHLORIDE 100 ML IV SCH ×2 (04:08→12:31)
[2016-06-07] MEDS: DUONEB NEB SCH ×2 (04:50→18:03)
[2016-06-07 08:25] LABS: BASOPHILS % (AUTO) 0.5 % (0.0-3.0); EOSINOPHILS # (AUTO) 0.2 K/ul (0.0-0.7); EOSINOPHILS % (AUTO) 3.7 % (0.0-7.0); HEMATOCRIT 34.7 % (42.0-52.0); HEMOGLOBIN 11.5 g/dl (14.0-18.0); IMMATURE GRANULOCYTE % (AUTO) 1.1 % (0.0-5.0); LYMPHOCYTES # (AUTO) 1.1 K/uL (0.60-3.4); LYMPHOCYTES % (AUTO) 17.4 (10.0-50.0); MEAN CORPUSCULAR HEMOGLOBIN 29.9 pg (27.0-31.0); MEAN CORPUSCULAR HGB CONC 33.1 (31.8-35.4); MEAN CORPUSCULAR VOLUME 90.1 fl (80.0-94.0); MONOCYTES # (AUTO) 0.6 K/uL (0.4-2.0); MONOCYTES % (AUTO) 9.2 (0-10); NEUTROPHILS # (AUTO) 4.2 K/ul (2.0-6.9); NEUTROPHILS % (AUTO) 68.1; PLATELET COUNT 169 10^3/uL (140-440); RED BLOOD COUNT 3.85 10^6/ul (4.70-6.10)
[2016-06-07 08:45] LABS: ALBUMIN 2.6 g/dL (3.4-5.0); ALBUMIN/GLOBULIN RATIO 0.96; ANION GAP 10.8; BILIRUBIN,TOTAL 0.61 mg/dL (0.00-1.20); BUN/CREATININE RATIO 10.41; CALCIUM 8.8 mg/dL (8.2-10.2); CREATININE 0.96 mg/dL (0.60-1.10); POTASSIUM 3.8 mmol/L (3.5-5.1); TOTAL PROTEIN 5.3 g/dL (5.8-8.1)
[2016-06-07] MEDS: CALCIUM 500 + VIT D 200 MG TABLET PO SCH (08:48)
[2016-06-07] MEDS: FLOMAX PO SCH (08:48)
[2016-06-07] MEDS: ASPIRIN EC PO SCH (08:48)
[2016-06-07] MEDS: MUCINEX PO SCH ×2 (08:48→20:01)
[2016-06-07] MEDS: SPIRIVA IH SCH (08:49)
[2016-06-07] MEDS: LOVENOX SUBCUT SCH (08:49)
[2016-06-07] MEDS: ADVAIR 250-50 DISKUS IH SCH ×2 (08:49→20:00)
[2016-06-07] MEDS: VANCOMYCIN 1 GM in SODIUM CHLORIDE 250 ML IV SCH (09:20)
[2016-06-07] MEDS: [UNRECOGNIZED DRUG - OTHER] PO SCH (09:22)
[2016-06-07] MEDS: ZOSYN 3.375 GM 3.375 GM in SODIUM CHLORIDE 100 ML IV SCH ×2 (14:57→17:12)
[2016-06-08] MEDS: ZOSYN 3.375 GM 3.375 GM in SODIUM CHLORIDE 100 ML IV SCH ×3 (00:30→15:21)
[2016-06-08 04:47] LABS: BASOPHILS # (AUTO) 0.1 K/uL (0-0.2); EOSINOPHILS # (AUTO) 0.3 K/ul (0.0-0.7); EOSINOPHILS % (AUTO) 5.3 % (0.0-7.0); HEMATOCRIT 34.8 % (42.0-52.0); HEMOGLOBIN 11.3 g/dl (14.0-18.0); IMMATURE GRANULOCYTE % (AUTO) 1.8 % (0.0-5.0); LYMPHOCYTES # (AUTO) 1.1 K/uL (0.60-3.4); LYMPHOCYTES % (AUTO) 21.8 (10.0-50.0); MEAN CORPUSCULAR HGB CONC 32.5 (31.8-35.4); MEAN CORPUSCULAR VOLUME 89.5 fl (80.0-94.0); MONOCYTES # (AUTO) 0.4 K/uL (0.4-2.0); MONOCYTES % (AUTO) 8.6 (0-10); NEUTROPHILS # (AUTO) 3.2 K/ul (2.0-6.9); NEUTROPHILS % (AUTO) 61.5; PLATELET COUNT 176 10^3/uL (140-440); RED BLOOD COUNT 3.89 10^6/ul (4.70-6.10); WHITE BLOOD COUNT 5.14 K/ul (4.2-10.2)
[2016-06-08 05:06] LABS: ALBUMIN 2.5 g/dL (3.4-5.0); ALBUMIN/GLOBULIN RATIO 0.93; ANION GAP 9.7; BILIRUBIN,TOTAL 0.75 mg/dL (0.00-1.20); BUN/CREATININE RATIO 9.78; CALCIUM 8.6 mg/dL (8.2-10.2); CREATININE 0.92 mg/dL (0.60-1.10); POTASSIUM 3.7 mmol/L (3.5-5.1); TOTAL PROTEIN 5.2 g/dL (5.8-8.1)
[2016-06-08] MEDS: DUONEB NEB SCH ×2 (05:07→17:10)
[2016-06-08] MEDS: MUCINEX PO SCH ×2 (08:22→21:27)
[2016-06-08] MEDS: CALCIUM 500 + VIT D 200 MG TABLET PO SCH (08:22)
[2016-06-08] MEDS: FLOMAX PO SCH (08:22)
[2016-06-08] MEDS: ASPIRIN EC PO SCH (08:22)
[2016-06-08] MEDS: LOVENOX SUBCUT SCH (08:22)
[2016-06-08] MEDS: SPIRIVA IH SCH (08:23)
[2016-06-08] MEDS: [UNRECOGNIZED DRUG - OTHER] PO SCH (08:23)
[2016-06-08] MEDS: ADVAIR 250-50 DISKUS IH SCH ×2 (08:24→21:28)
--- NOTE | 2016-06-08 10:34 | DI ---
EXAM: Fluoroscopic dysphasia study HISTORY: Poor appetite with difficulty swallowing. COMPARISON: CT chest 06/05/2016 FINDINGS: Real time fluoroscopic evaluation was performed by Dr. Madhu Flowers with speech patholog y. Multiple consistencies were administered to the patient and fluoroscopic evaluation was obtained . There is no visualized aspiration or penetration. IMPRESSION: No aspiration or penetration. For full details please see note of speech pathology.
--- NOTE | 2016-06-08 10:44 | RS.MODBRM ---
Subjective Number of treatment sessions: 1 Date of Evaluation: 06/08/16 Date of Onset/Injury/Change in Status: 06/05/16 Treatment Diagnosis: pnemonia Prior Level of Function.....Patient was independent with: Caregiving (Pt lived at home with , as primary caregiver. Pt fed self.) Current Level of Function: This 80 year old male was admitted to the hospital with complaints of chest pain and SOB. Lung sounds were reported with rhonci and crackles. DIGITAL CONTENT MANAGER had hx of treating pt for possible aspiration pneumonia. Pt went home on puree and honey-thick liquids. DIGITAL CONTENT MANAGER has limited information regarding pt's compliance with diet and liquid texture, daily eating habits and level of consciouness for PO intake in home environment. DIGITAL CONTENT MANAGER is determining with MBSS if the cause of possible aspiration resulting in pneumonia was behavioral vs structure and function. Current Diet: Honey-thick liquid consistency and puree diet texture. Current Subjective/complaints:: Pt reported no new complaints or concerns. Pt was coopeative and alert for MBSS. DIGITAL CONTENT MANAGER provided verbal instructions, which pt followed and completed with minimal repetition. DIGITAL CONTENT MANAGER noted pts poor posture, impacting respiratory tract expansion. During MBSS, DIGITAL CONTENT MANAGER and radiologist provided instructions for pt to correct posture to improve view of airway during study, pt was able to maintain posture approximately half of the study before requiring verbal commands to correct posture. Pt also required verbal commands to swallow during the study. Medical History Comments:: COPD, oxygen dependent, CAD, abdominal aortic aneurysm, Hx of lung cancer with lobectomy in 2010, GERD, anemia. Hx Home Medications: Refer to medication list for current complete list. Patient's Goals: DIGITAL CONTENT MANAGER verbally requested pt to state goals and pt did not verbalize any goals related to speech or swallowing. Food Presented [place] Liquid: spoon (DIGITAL CONTENT MANAGER presented four trials. Coated spoon, 1/4 tsp, 1/2 tsp , and 1 tsp. Pt had immediate vallecula pooling and minimal spillage over epiglottic tip to UES prior to swallow initiation. Swallow delay 5-6 seconds. DIGITAL CONTENT MANAGER noted no penetration or aspiration. Post solid trial, DIGITAL CONTENT MANAGER presented two more trials of nectar via 1tsp and straw. Pt had no aspiration or penetration.) Honey Liquid: spoon (DIGITAL CONTENT MANAGER presented coated spoon and 1/2 tsp. Vallecula pooling with mild swallow delay. Pt cleared residue on BOT and epiglottis. No penetration or aspiration noted.) Pureed Solid: full teaspoon (DIGITAL CONTENT MANAGER fed pt puree. Pt had decreased bolus control with spillage to vallecula, pooling in vallecula. Pt with mild delay in swallow response. Pt cleared texture with no aspiration or penetration.) Other:: DIGITAL CONTENT MANAGER presented 1/2 tsp size softened cracker. No aspiration or penetration. Oral Phase - Oral Phase Labial Closure: Mild Impairment (Open with diet texture, closed during liquid consistencies.) Bolus Formation: Moderate Impairment (Pt with piece meal deglutition, pooling in vallecula prior to swallow.) Mastication: Moderate Impairment (Muching movement without rotary chew present.) Lingual Movement: Mild Impairment (Functional coordination and lateralization. Slow movements. Adequate BOT approximation to pharyngeal wall.) A/P Propulsion: WFL Premature Vallecular Pooling: Moderate Oral Residue: Mild Pharyngeal Phase Pharyngeal Response: WFL Base of Tongue: WFL Epiglottic Movement: Mild Impairment (Functional movement with minimal impairment.) Laryngeal Excursion: Mild Impairment Vallecular Residue: Coating (Post swallow, pt cleared moderate pooling. [place] and puree texture with minimal coating post swallow.) Pyriform Residue: Scant Comments:: Pt had spillage over epiglottic tip 2x with larger boli Summary and Recommendations - Recommendations PO Diet: Pureed (Pt tolerates puree texture with least risk for aspiration. ), [place]-Thick Liquids, Teaspoon Sips ONLY-- NO STRAWS or CUP SIPS (No open cup. OK for straws.) Comments:: Pt required verbal cues to swallow textures. DIGITAL CONTENT MANAGER recommends to continue puree texture at this time, due to pts chewing and piece meal deglutition. However, if mastication strength and coordination improves, pt safe to have mechanical soft diet texture. Pt to upgrade to nectar thick liquid consistency. Pt tolerates 1 tsp via spoon or straw. Minimal risk for penetration due to vallecula pooling and mild coating on epiglottis post swallow. Further Therapy Indicated?: Yes Functional Reporting G Codes: Swallowing Current CL Goal CK Severity Impairment Rationale: Pt consumes puree diet texture and nectar thick liquids. Short Term Goals Problem: Swallowing Goal #1: Will participate in oral motor exercises to 80% accuracy with a model. Goal to be met by: 06/15/16 Problem: Swallowing Goal #2: Will complete oral exercises focused on bolus manipulation and rotary chew Goal to be met by: 06/15/16 Problem: Swallowing Goal #3: Will complete thermal/sour stimulation to decrease swallow delay Goal to be met by: 06/15/16 Problem: Swallowing Goal #4: Will tolerate 1/2 teaspoon mechanical soft diet texture on 10/10 trials. Goal to be met by: 06/15/16 Mesh Man Goals Problem: Swallowing Goal #1: Maximize oral strength and coordination for oral phase efficiency. Goal to be met by: 06/17/16 Problem: Swallowing Goal #2: Upgrade diet and liquid textue to safest and least restrictive. Goal to be met by: 06/17/16 Plan Duration of Treatment: 2 Weeks Frequency of Treatment: 2-3x a week Anticipated Discharge Destination: Family deciding at this time.
--- NOTE | 2016-06-08 14:44 | PCM.PROG ---
Attending Provider: ATTENDING PROVIDER: Dr. AIME NORIEGA DATE OF SERVICE: 06/08/16 SUBJECTIVE: This 80 year old WHITE/ M was hospitalized 06/05/16. The patient states he is doing pretty good. The dsyphagia study was done this morning and was normal. The is in the room and advised that the patient needs to slow down when he eats. His diet changed to nectar thickened liquids instead of honey thickened and is still pureed. Discussed with the and the patient concerning evaluation for mcfp placement and they are agreeable. REVIEW OF SYSTEMS: CONSTITUTIONAL: No fever, no chills. ENDOCRINE: No weight loss or weight gain. HEENT: No sinus drainage, no sore throat. CVS: No angina symptoms. No CHF symptoms. No palpitations. No atypical chest pain for CAD. No shortness of breath. RESPIRATORY: No cough, no hemoptysis. GI: No melena. No abdominal pain. No nausea, no vomiting. : No hematuria. No polyuria. SKIN: No rash. No wounds. MUSCULOSKELETAL: No pain. PERSONNEL ASSISTANT: No blackout, no dizziness. No headache. No double vision. PSYCHIATRIC: Not anxious; no depression. No suicidal thoughts. No homicidal thoughts. PHYSICAL EXAMINATION: GENERAL: Lying in bed in no distress. VITAL SIGNS: Temperature 96.7 F, Pulse 79, Respiratory Rate 20, BP 100/64, Pulse Ox 99% HEENT: Normocephalic, atraumatic. Mucosa is dry, pallor positive. NECK: No JVP, no carotid bruit. No lymphadenopathy. CARDIAC: S1, S2, no S3. No murmur, gallop or regurgitation. LUNGS: Clear to auscultation. ABDOMEN: Soft, non-tender. Bowel sounds active. No rigidity, guarding or CVA tenderness. EXTREMITIES: No clubbing, cyanosis or edema. Right BKA. NEUROLOGIC: Awake, alert and oriented x3. LYMPHATIC: No palpable lymph nodes SKIN: Not dry. Intact. MUSCULOSKELETAL: No joint swelling. LAB REVIEW: 06/08/16 04:43 06/08/16 04:43 06/08/16 04:43: WBC 5.14, RBC 3.89 L, Hgb 11.3 L, Hct 34.8 L, MCV 89.5, MCH 29.0 , MCHC 32.5, RDW Coeff of [place] 16.3 H, Plt Count 176, Immature Gran % (Auto) 1.8 , Neut % (Auto) 61.5, Lymph % (Auto) 21.8, [place] % (Auto) 8.6, Eos % (Auto) 5.3, Baso % (Auto) 1.0, Immature Gran # (Auto) 0.1, Neut # 3.2, Lymph # 1.1, [place] # 0.4, Eos # 0.3, Baso # 0.1, Sodium 141, Potassium 3.7, Chloride 108 H, Carbon Dioxide 27, Anion Gap 9.7, BUN 9, Creatinine 0.92, Estimated GFR (MDRD) 79.00, BUN/Creatinine Ratio 9.78, Glucose 89, Calcium 8.6, Total Bilirubin 0.75, AST 11 L, ALT 7 L, Alkaline Phosphatase 49 L, Total Protein 5.2 L, Albumin 2.5 L, Globulin 2.7, Albumin/Globulin Ratio 0.93 ASSESSMENT: 1. Aspiration pneumonia 2. COPD exacerbation secondary to aspiration 3. Dyslipidemia 4. Hypertension 5. History of lung cancer 6. BKA 7. Status post cholecystectomy 8. BPH 9. IV port placement 1980s PLAN: 1. Continue Zosyn for now. 2. USP evaluation, patient and family agreeable 3. [place] thickened diet 4. Upright position when eating or drinking, to have supervision Plan and coordination of the patient's care discussed in the presence of Relay Mechanic and nurse. CONDITION: Stable SCRIBED BY: SULLY GIBBS, Music Professor scribed while in presence of service performed by Dr. AIME NORIEGA on 06/08/16 ([id number])
[2016-06-08] MEDS: MAXIPIME IM SCH (15:08)
[2016-06-08] MEDS: LIDOCAINE 1 % AMP 5 ML (SUTURES) IM SCH (15:08)
[2016-06-08] MEDS: SODIUM CHLORIDE 1,000 ML IV SCH (16:37)
[2016-06-09] MEDS: DUONEB NEB SCH (05:11)
[2016-06-09 05:14] LABS: BASOPHILS # (AUTO) 0.1 K/uL (0-0.2); BASOPHILS % (AUTO) 1.2 % (0.0-3.0); EOSINOPHILS # (AUTO) 0.3 K/ul (0.0-0.7); EOSINOPHILS % (AUTO) 4.2 % (0.0-7.0); HEMATOCRIT 36.6 % (42.0-52.0); HEMOGLOBIN 11.8 g/dl (14.0-18.0); IMMATURE GRANULOCYTE % (AUTO) 3.9 % (0.0-5.0); LYMPHOCYTES # (AUTO) 1.2 K/uL (0.60-3.4); LYMPHOCYTES % (AUTO) 20.7 (10.0-50.0); MEAN CORPUSCULAR HEMOGLOBIN 29.1 pg (27.0-31.0); MEAN CORPUSCULAR HGB CONC 32.2 (31.8-35.4); MEAN CORPUSCULAR VOLUME 90.1 fl (80.0-94.0); MONOCYTES # (AUTO) 0.6 K/uL (0.4-2.0); MONOCYTES % (AUTO) 9.2 (0-10); NEUTROPHILS # (AUTO) 3.6 K/ul (2.0-6.9); NEUTROPHILS % (AUTO) 60.8; PLATELET COUNT 193 10^3/uL (140-440); RED BLOOD COUNT 4.06 10^6/ul (4.70-6.10); WHITE BLOOD COUNT 5.95 K/ul (4.2-10.2)
[2016-06-09 05:40] LABS: ALBUMIN 2.6 g/dL (3.4-5.0); ALBUMIN/GLOBULIN RATIO 0.96; ANION GAP 10.9; BILIRUBIN,TOTAL 0.58 mg/dL (0.00-1.20); BUN/CREATININE RATIO 10.67; CALCIUM 9.1 mg/dL (8.2-10.2); CREATININE 1.03 mg/dL (0.60-1.10); POTASSIUM 3.9 mmol/L (3.5-5.1); TOTAL PROTEIN 5.3 g/dL (5.8-8.1)
--- NOTE | 2016-06-09 08:17 | PN ---
DATE OF SERVICE: 06/07/16 SUBJECTIVE: The patient is much better no coughing or congestion. No new complaints today. REVIEW OF SYSTEMS: CONSTITUTIONAL: No fever, no chills. HEENT: Normal. ENDOCRINE: No weight gain, no weight loss. CVS: No angina symptoms. No CHF symptoms. No palpitations. No atypical chest pain for CAD. No shortness of breath. No PND, no orthopnea. RESPIRATORY: No cough, no hemoptysis. GI: No nausea, no vomiting. No abdominal pain. : No hematuria. No polyuria. MUSCULOSKELETAL:. No joint swelling. PSYCHIATRIC: Not anxious. No depression. No suicidal thoughts. No homicidal thoughts. SKIN: Intact. No rash. PHYSICAL EXAMINATION: V/S: Blood pressure 88/51, respiratory rate 16, heart rate 91 and temperature 97.6. HEENT: Normocephalic, atraumatic. Ears, eyes, nose and throat normal. Mucosa dry. Pallor positive. No icterus. NECK: Supple. No JVD, no carotid bruit. No lymphadenopathy. LUNGS: Decreased and clear to auscultation. No rales or rhonchi. HEART: S1, S2 normal. No S3. No murmur, gallop or regurgitation. ABDOMEN: Soft, nontender. Bowel sounds active. No rigidity. No rebound or guarding. No CVA tenderness. EXTREMITIES: No clubbing, cyanosis or pedal edema. Right BKA. MUSCULOSKELETAL: No joint swelling. Except the right lower extremity amputation. NEUROLOGIC: Awake, alert, oriented times three. No focal deficit. LYMPHATIC: No lymph nodes palpable. SKIN: Intact. LABS: WBC 6.20, hgb 11.5, hct 34.7, plt count 169, sodium 143, potassium 3.8, chloride 107, bicarb 29, BUN 10 and creatinine 0.96 ASSESSMENT: 1. Aspiration pneumonia 2. UTI, Pseudomonas 3. Anemia, chronic disease 4. COPD 5. Cholecystectomy 6. Abdominal aortic aneurism, 3.1cm. 7. Right lower extremity amputation PLAN: 1. Zosyn 2. Lovenox 3. Home medications. TIME SPENT: More than 30 minutes MTDD
--- NOTE | 2016-06-09 08:30 | PN ---
DATE OF SERVICE: 06/06/16 SUBJECTIVE: The patient is lying in the bed not in any distress. No more choking or coughing episodes. He says that he is feeling better. REVIEW OF SYSTEMS: CONSTITUTIONAL: No fever, no chills. HEENT: Normal. ENDOCRINE: No weight gain, no weight loss. CVS: No angina symptoms. No CHF symptoms. No palpitations. No atypical chest pain for CAD. No shortness of breath. No PND, no orthopnea. RESPIRATORY: No cough, no hemoptysis. GI: No nausea, no vomiting. No abdominal pain. : No hematuria. No polyuria. MUSCULOSKELETAL:. No joint swelling. PSYCHIATRIC: Not anxious. No depression. No suicidal thoughts. No homicidal thoughts. SKIN: Intact. No rash. PHYSICAL EXAMINATION: V/S: Blood pressure 92/55, respiratory rate 16, heart rate 96 and temperature 98.4. HEENT: Normocephalic, atraumatic. Ears, eyes, nose and throat normal. Mucosa dry. Pallor positive. No icterus. NECK: Supple. No JVD, no carotid bruit. No lymphadenopathy. LUNGS: Bilateral entry is decreased and clear to auscultation. No rales or rhonchi. HEART: S1, S2 normal. No S3. No murmur, gallop or regurgitation. ABDOMEN: Soft, nontender. Bowel sounds active. No rigidity. No rebound or guarding. No CVA tenderness. EXTREMITIES: No clubbing, cyanosis or pedal edema. Right BKA MUSCULOSKELETAL: No joint swelling. NEUROLOGIC: Awake, alert, oriented times three. No focal deficit. LYMPHATIC: No lymph nodes palpable. SKIN: Intact. LABS: WBC 7.79, hgb 11.9. hct 36.0, plt count 150, sodium 141, potassium 3.9, chloride 107, bicarb 27, BUN 14 and creatinine 0.97. ASSESSMENT: 1. COPD exacerbation secondary to the questionable aspiration pneumonia recurrent choking on the food 2. History of COPD 3. Hypertension 4. Dyslipidemia 5. Status post cholecystectomy 6. Right BKA PLAN: 1. Will change antibiotics to the Zosyn 3.375 Q 6 hours as per the culture grown from the sputum 2. Urine showing Pseudomonas Aeruginosa 3. Continue the rest of the medication 4. DUO NEBS 5. Lovenox for the DVT prophylaxis 6. Thicken Honey Diet TIME SPENT: More than 30 minutes MTDD
[2016-06-09] MEDS: LOVENOX SUBCUT SCH (08:48)
[2016-06-09] MEDS: MAXIPIME IM SCH (08:48)
[2016-06-09] MEDS: LIDOCAINE 1 % AMP 5 ML (SUTURES) IM SCH (08:49)
[2016-06-09] MEDS: SPIRIVA IH SCH (08:50)
[2016-06-09] MEDS: MUCINEX PO SCH (08:50)
[2016-06-09] MEDS: ADVAIR 250-50 DISKUS IH SCH (08:50)
[2016-06-09] MEDS: FLOMAX PO SCH (08:50)
[2016-06-09] MEDS: [UNRECOGNIZED DRUG - OTHER] PO SCH (08:50)
[2016-06-09] MEDS: ASPIRIN EC PO SCH (08:50)
[2016-06-09] MEDS: CALCIUM 500 + VIT D 200 MG TABLET PO SCH (08:50)
[2016-06-09 10:08] VITALS: BP 100/56; TEMP 97
--- NOTE | 2016-06-09 10:49 | CM.DICTOOL ---
ADMISSION: 06/05/16 02:33 DISCHARGE: 06/09/16 DISCHARGE FOR ADMISSION TO [facility] DATE OF SERVICE: 06/09/16 FINAL DIAGNOSIS PNEUMONIA UTI - PSEUDOMONAS AERUGINOSA COPD, OXYGEN DEPENDENT HISTORY OF LUNG CANCER BPH BELOW KNEE AMPUTATION, RIGHT LEG (FARMING ACCIDENT) IV PORT PLACEMENT, LAST VITALS Temp Pulse Resp BP Pulse Ox 97 F L 85 20 100/56 L 98 06/09/16 10:00 06/09/16 10:00 06/09/16 10:00 06/09/16 10:00 06/09/16 10:00 ACTIVE MEDICATIONS Acetaminophen (Tylenol) 650 mg PO Q4H PRN PRN Reason: Mild Pain Albuterol/Ipratropium (Duoneb) 1 vial NEB RTBID [facility] [place] Last Admin: 06/09/16 05:11 Dose: 1 vial Aspirin (Aspirin Ec) 81 mg PO DAILYWM [facility] [place] Last Admin: 06/09/16 08:50 Dose: 81 mg Calcium/Vitamin D (Calcium 500 + Vit D 200 Mg Tablet) 1 each PO DAILY [facility] [place] Last Admin: 06/09/16 08:50 Dose: 1 each Cefepime HCl (Maxipime) 0.5 gm IM DAILY X 3 DAYS ONLYSCH Stop: 06/13/16 14:59 Last Admin: 06/09/16 08:48 Dose: 0.5 gm Guaifenesin (Mucinex) 600 mg PO BID [facility] [place] Last Admin: 06/09/16 08:50 Dose: 600 mg Lidocaine HCl (Lidocaine 1 % Amp 5 Ml (Sutures)) 5 ml IM DAILY [facility] [place] Last Admin: 06/09/16 08:49 Dose: 5 ml Non-Formulary Medication (Lactobac Cmb #3/Fos/Pantethine [Probiotic & Acidophilus Cap]) 1 each PO DAILY Last Admin: 06/09/16 08:50 Dose: Not Given Polyethylene Glycol (Miralax) 17 gm PO DAILY PRN PRN Reason: Constipation Fluticasone/Salmeterol (Advair 250-50 Diskus) 1 puff IH BID [facility] [place] Last Admin: 06/09/16 08:50 Dose: 1 puff Tamsulosin HCl (Flomax) 0.4 mg PO DAILY [facility] [place] Last Admin: 06/09/16 08:50 Dose: 0.4 mg Tiotropium [place] (Spiriva) 1 cap IH DAILY [facility] [place] Last Admin: 06/09/16 08:50 Dose: 1 cap DENOTES NEW MEDICATIONS ADDED DURING THIS ADMISSION THAT WILL BE CONTINUED AFTER DISCHARGE ALLERGIES Penicillins Adverse Reaction (Verified 06/05/16 01:15) NEW PRESCRIPTIONS: MAXIPIME 500 MG, GIVE IM DAILY FOR 3 (THREE) DAYS, THEN STOP MAY USE LIDOCAINE HCL 1% 5 ML IM WITH THE MAXIPIME SMOKING: NONSMOKER LAB REVIEW: 06/09/16 05:09 06/09/16 05:09 06/09/16 05:09: WBC 5.95, RBC 4.06 L, Hgb 11.8 L, Hct 36.6 L, MCV 90.1, MCH 29.1 , MCHC 32.2, RDW Coeff of [place] 16.4 H, Plt Count 193, Immature Gran % (Auto) 3.9 , Neut % (Auto) 60.8, Lymph % (Auto) 20.7, [place] % (Auto) 9.2, Eos % (Auto) 4.2, Baso % (Auto) 1.2, Immature Gran # (Auto) 0.2, Neut # 3.6, Lymph # 1.2, [place] # 0.6, Eos # 0.3, Baso # 0.1, Sodium 143, Potassium 3.9, Chloride 108 H, Carbon Dioxide 28, Anion Gap 10.9, BUN 11, Creatinine 1.03, Estimated GFR (MDRD) 70.00 , BUN/Creatinine Ratio 10.67, Glucose 94, Calcium 9.1, Total Bilirubin 0.58, AST 13 L, ALT 6 L, Alkaline Phosphatase 51 L, Total Protein 5.3 L, Albumin 2.6 L , Globulin 2.7, Albumin/Globulin Ratio 0.96 PLAN: DISCHARGE TO [facility] TODAY DR. NORIEGA WILL FOLLOW THE PATIENT DURING USUAL SENIOR CARE ROUNDS IN APPROX 1 WEEK RESUME YOUR HOME MEDICATIONS AT THE SENIOR CARE PER LIST PROVIDED BY THE NURSING STAFF OXYGEN AT 2L/NC CONTINUOUSLY NEW MEDICATIONS: MAXIPIME 500 MG, GIVE IM DAILY FOR 3 (THREE) DAYS, THEN STOP MAY USE LIDOCAINE HCL 1% 5 ML IM WITH THE MAXIPIME LABS: CBC WITH DIFF, CMP AND U/A IN ONE WEEK, THEN CBC WITH DIFF AND CMP Q 3 MONTHS ACTIVITY: MAY PARTICIPATE IN SENIOR CARE ACTIVITY PROGRAM TOLERATED PT/OT/SPEECH PLEASE EVALUATE AND TREAT INDICATED DIET: PUREED/NECTAR THICKENED LIQUIDS MAY HAVE TOMATO JUICE, BUTTER MILK, ENSURE ASPIRATION PRECAUTIONS THE PATIENT MUST BE UPRIGHT AND SUPERVISED FOR ALL MEALS ENCOURAGE TO SWALLOW AFTER EACH BITE FAMILY SERVICES MANAGER PLEASE CONSULT FOR OPTIMAL NUTRITION UP TO DINING ROOM FOR MEALS OTHER ORDERS: DECUB CARE PER SENIOR CARE PROTOCOL (STAGE II RIGHT BUTTOCK) V/S DAILY RAMIREZ CATH CONTINUOUS WITH ROUTINE CATH CARE SUMMARY: THE PATIENT IS ALERT AND ORIENTED X3. HE CURRENTLY RESIDES AT HOME WITH HIS SPOUSE. HE HAS BEEN DEPENDENT ON OTHERS FOR ADL'S PRIOR TO THIS HOSPITALIZATION. AT HOME HE IS OXYGEN DEPENDENT AND HAS A NEBULIZER. HE AND HIS FAMILY DESIRE FOR SENIOR CARE ADMISSION TO [facility] AT DISCHARGE. HE HAS A STAGE II DECUBITUS ULCER ON HIS RIGHT BUTTOCK PRESENT ON ADMISSION. WE HAVE CULTURED THE ULCER DURING THIS ADMISSION. THE C/S DID NOT GROW ANY ORGANISM. THE PATIENT HAS A PORT IN HIS UPPER CHEST. WE HAVE NOT ACCESSED THE SITE FOR USE DURING THIS STAY. WE ARE UNSURE WHEN THE PORT WAS LAST USED. AIME NORIEGA M.D.
--- NOTE | 2016-06-09 13:09 | PCM.PROG ---
Attending Provider: ATTENDING PROVIDER: Dr. AIME NORIEGA DATE OF SERVICE: 06/09/16 SUBJECTIVE: This 80 year old WHITE/ M was hospitalized 06/05/16. The patient hasn' t had any more choking episodes. He is tolerating a pureed nectar-thickened liquids. REVIEW OF SYSTEMS: CONSTITUTIONAL: No fever, no chills. ENDOCRINE: No weight loss or weight gain. HEENT: No sinus drainage, no sore throat. CVS: No angina symptoms. No CHF symptoms. No palpitations. No atypical chest pain for CAD. No shortness of breath. RESPIRATORY: No cough, no hemoptysis. GI: No melena. No abdominal pain. No nausea, no vomiting. : No hematuria. No polyuria. SKIN: No rash. No wounds. MUSCULOSKELETAL: No pain. Right BKA. TECHNICAL TRAINING MANAGER: No blackout, no dizziness. No headache. No double vision. PSYCHIATRIC: Not anxious; no depression. No suicidal thoughts. No homicidal thoughts. PHYSICAL EXAMINATION: GENERAL: Cachetic appearing male lying in bed in no distress. VITAL SIGNS: Temperature 97.8 F, Pulse 68, Respiratory Rate 20, BP 103/62, Pulse Ox 94% HEENT: Normocephalic, atraumatic. Mucosa is dry, pallor positive. NECK: No JVP, no carotid bruit. No lymphadenopathy. CARDIAC: S1, S2, no S3. No murmur, gallop or regurgitation. LUNGS: Decreased entry. Clear to auscultation. ABDOMEN: Soft, non-tender. Bowel sounds active. No rigidity, guarding or CVA tenderness. EXTREMITIES: No clubbing, cyanosis or edema. Right [id number]. NEUROLOGIC: Awake, alert and oriented x3. LYMPHATIC: No palpable lymph nodes SKIN: Not dry. Intact. MUSCULOSKELETAL: No joint swelling. LAB REVIEW: 06/09/16 05:09 06/09/16 05:09 06/09/16 05:09: WBC 5.95, RBC 4.06 L, Hgb 11.8 L, Hct 36.6 L, MCV 90.1, MCH 29.1 , MCHC 32.2, RDW Coeff of [place] 16.4 H, Plt Count 193, Immature Gran % (Auto) 3.9 , Neut % (Auto) 60.8, Lymph % (Auto) 20.7, [place] % (Auto) 9.2, Eos % (Auto) 4.2, Baso % (Auto) 1.2, Immature Gran # (Auto) 0.2, Neut # 3.6, Lymph # 1.2, [place] # 0.6, Eos # 0.3, Baso # 0.1, Sodium 143, Potassium 3.9, Chloride 108 H, Carbon Dioxide 28, Anion Gap 10.9, BUN 11, Creatinine 1.03, Estimated GFR (MDRD) 70.00 , BUN/Creatinine Ratio 10.67, Glucose 94, Calcium 9.1, Total Bilirubin 0.58, AST 13 L, ALT 6 L, Alkaline Phosphatase 51 L, Total Protein 5.3 L, Albumin 2.6 L , Globulin 2.7, Albumin/Globulin Ratio 0.96 ASSESSMENT: 1. Aspiration pneumonia, improved 2. COPD exacerbation secondary to aspiration pneumonia, improved 3. Dyslipidemia 4. Hypertension 5. History of lung cancer 6. BKA 7. Status post cholecystectomy 8. BPH 9. IV port placement 1980s PLAN: 1. Discharge to [facility] 2. PT/OT 3. Continue Cefepime for four more days 4. CBC, CMP in one week then every 3 months 5. Duonebs t.i.d. 6. Vital signs and weight weekly Plan and coordination of the patient's care discussed in the presence of Bellman Captain and nurse. CONDITION: Stable SCRIBED BY: SULLY GIBBS Fisherman Helper scribed while in presence of service performed by Dr. AIME NORIEGA on 06/09/16 ([id number])
--- NOTE | 2016-07-23 14:40 | DS ---
DATE OF SERVICE: 06/09/16 FINAL DIAGNOSIS: 1. Pneumonia 2. Urinary tract infection, pseudomonas Aeruginosa 3. COPD, oxygen dependant 4. History of lung cancer 5. BPH 6. Below the knee amputation, right leg (farming accident) 7. IV port Placement, LABS: Temperature 97, pulse 85, respiratory rate 20, blood pressure 100/56 and pulse ox 98%. DISCHARGE INSTRUCTIONS: Discharge to [facility] today. Dr. Lowery will follow the patient during usual long-term rounds in approximately one week. Resume home medications at the long-term as per list provided by the nursing staff. Oxygen at 2l/nasal cannula continuously. CBC with differential, CMP and U/A in one week, then CBC with differential and CMP Q 3 months. MEDICATIONS AT DISCHARGE: Tylenol 650mg PO Q 4 hours PRN DUO NEBS 1 vial NEB twice a day Aspirin 81mg PO daily Calcium 500+Vitamin D 200mg one PO daily Maxipime 0.5gm Im daily X 3 days only Mucinex 600mg PO twice a day Lidocaine 1% amp 5ml IM daily Lactobac one each PO daily Miralax 17grams PO daily PRN Advair 250-50 diskus one puff IH twice a day Flomax 0.4mg PO daily Spiriva 1 cap IH daily ALLERGIES: Penicillins NEW PRESCRIPTIONS: Maxipime 500mg give IM daily for three days then stop May use Lidocaine HVL 1% 5ml IM with the Maxipime DIET INSTRUCTIONS: Pureed/[place] thickened liquids. May have tomato juice, butter mils, Ensure. Aspiration precautions The patient mush be upright and supervised for all meals Encouraged to swallow after each bit. ACTIVITY: May participate in long-term activity program as tolerated. PT/OT/ Speech please evaluate and treat as indicated. SMOKING: Non-smoker DISEASE SPECIFIC EDUCATION: Pneumonia Oxygen use New medications Decubitus Ulcers [facility] COURSE: Deion Buck came to the emergency room with cough, congestion, shortness of breath, nausea and vomiting. Initial WBC was 11,000 and the pH7.47, pCO2 32.4 , pO2 70, BUN and creatinine and first set of cardiac enzymes were negative. Serology is negative. Urine is leukocyte esterase positive. CT chest showed consolidation and pneumonia. At that time the patient was admitted to the hospital and started on the IV antibiotics, DUO NEBS and Solu Medrol. With the given treatment gradually was started feeling better and he was started on the Piperacillin / Tazobactam, Azactam, DUO NEBS, Lovenox for the DVT prophylaxis Azactam was changed to the Cefepime for the urine culture which was showing growing the pseudomonas aeruginosa sensitive for the Cefepime. WBC was normal, hgb remained stable and no fever during the hospital stay. As the patient was doing fine and did not have any problems that patient was discharged to the [facility]. Continue the Maxipime 500mg IM daily for three more days and repeat CBC and CMP in one week. TIME SPENT: More than 45 minutes. MTDD
== END 2016-06-09 14:52 | DRG 194 ==
LOC: ED 00:17 → MEDSURG B 02:33
PROVIDERS: ADMIT Emergency Medicine; ATTEND Emergency Medicine
DX: J18.9 Pneumonia, unspecified organism (principal); N39.0 Urinary tract infection, site not specified; B96.5 Pseudomonas (aeruginosa) (mallei) (pseudomallei) as the cause of diseases classified elsewhere; J44.9 Chronic obstructive pulmonary disease, unspecified; R50.9 Fever, unspecified; R11.2 Nausea with vomiting, unspecified; I71.4 Abdominal aortic aneurysm, without rupture; R60.0 Localized edema; I10 Essential (primary) hypertension; N40.0 Benign prostatic hyperplasia without lower urinary tract symptoms; Z16.30 Resistance to unspecified antimicrobial drugs; Z79.899 Other long term (current) drug therapy; Z89.511 Acquired absence of right leg below knee; Z99.81 Dependence on supplemental oxygen; Z85.118 Personal history of other malignant neoplasm of bronchus and lung; Z95.828 Presence of other vascular implants and grafts; Z87.821 Personal history of retained foreign body fully removed
CPT/HCPCS: 36415; 80053; 81001; 82150; 82550; 82803; 83690; 84145; 84484; 85025; 85379; 85651; 87040; 87070; 87081; 87086; 87186; 87804; 93005; 93010; 94640; 96361; 96365; 97802; 99284

== ENCOUNTER 2016-06-17 10:49 | Outpatient (CLI) | payer OTHER ==
[2016-06-17 11:18] LABS: BILIRUBIN,URINE Negative (NEGATIVE); KETONES,URINE Negative (NEGATIVE); LEUKOCYTE ESTERASE ,URINE 2+ (NEGATIVE); NITRITE,URINE Positive (NEGATIVE); PROTEIN,URINE Trace (NEGATIVE); URINE, BLOOD 1+ (NEGATIVE)
[2016-06-17 11:24] LABS: ADD URINE MICROSCOPIC YES
[2016-06-17 11:26] LABS: BACTERIA,URINE 2+ (NOT PRESENT)
== END 2016-06-17 10:50 | disposition home or self-care (01) ==
LOC: NONPT 10:49
PROVIDERS: ATTEND Internal Medicine
DX: N39.0 Urinary tract infection, site not specified (principal)
CPT/HCPCS: 81001; 87086; 87186

== ENCOUNTER 2016-07-04 14:29 | Outpatient (CLI) ==
[2016-07-04 17:46] VITALS: BMI 19.1
== END 2016-07-04 14:30 | disposition home or self-care (01) ==
LOC: AMBL 14:29
PROVIDERS: ATTEND Internal Medicine Geriatric Medicine
DX: R06.02 Shortness of breath (principal); R09.89 Other specified symptoms and signs involving the circulatory and respiratory systems; J18.9 Pneumonia, unspecified organism; Z99.81 Dependence on supplemental oxygen

== ENCOUNTER 2016-07-04 14:40 | Inpatient (IN) | payer OTHER ==
[2016-07-04] MEDS ORDERED: DUONEB NEB STA (15:06)
[2016-07-04] MEDS ORDERED: SOLU-MEDROL 125 MG IVP STA (15:06)
[2016-07-04] MEDS ORDERED: LEVAQUIN 500 MG in PREMIX 100 ML D5W 1 BAG IV STA (15:23)
--- NOTE | 2016-07-04 15:31 | DI ---
Exam: Single view chest x-ray. Date: 07/04/2016. Comparison: 05/12/2016. HISTORY: Cough. FINDINGS: A Port-A-Cath is again seen. The lungs are clear with calcified granulomas. There is a persistent area of interstitial prominence in the right infrahilar region. The cardiac silhouette a nd pulmonary vasculature are normal. Impression: No acute intrathoracic findings. Emphysematous changes with stable area of interstitia l prominence in the right infrahilar region which was evaluated with a CT scan of the thorax perform ed 06/05/2016.
[2016-07-04 15:33] LABS: ABG BASE EXCESS 2 (-2.0-2.0); ABG HCO3 24.7 (22.0-26.0); ABG PCO2 29.9 mmHg (35-45); ABG PH 7.525 (7.35-7.45); ABG TCO2 26 (22.0-28.0)
[2016-07-04 15:39] LABS: BASOPHILS # (AUTO) 0.1 K/uL (0-0.2); BASOPHILS % (AUTO) 0.5 % (0.0-3.0); HEMATOCRIT 38.7 % (42.0-52.0); HEMOGLOBIN 12.7 g/dl (14.0-18.0); IMMATURE GRANULOCYTE % (AUTO) 0.9 % (0.0-5.0); LYMPHOCYTES # (AUTO) 1.1 K/uL (0.60-3.4); LYMPHOCYTES % (AUTO) 4.5 (10.0-50.0); MEAN CORPUSCULAR HEMOGLOBIN 31.3 pg (27.0-31.0); MEAN CORPUSCULAR HGB CONC 32.8 (31.8-35.4); MEAN CORPUSCULAR VOLUME 95.3 fl (80.0-94.0); MONOCYTES # (AUTO) 1.4 K/uL (0.4-2.0); MONOCYTES % (AUTO) 5.5 (0-10); NEUTROPHILS # (AUTO) 21.8 K/ul (2.0-6.9); NEUTROPHILS % (AUTO) 88.6; PLATELET COUNT 266 10^3/uL (140-440); RED BLOOD COUNT 4.06 10^6/ul (4.70-6.10); WHITE BLOOD COUNT 24.59 K/ul (4.2-10.2)
--- NOTE | 2016-07-04 15:40 | ED.PDOC ---
General ED Provider: Dr. TESSA GROVE Chief Complaint: Respiratory Complaint Stated Complaint: Patient is a 80 year old alf Resident was recently dischrged from the hospital for respiratory infection return via ambulace with cough conjestion and fever. Family is at the bed side. Time Seen by Physician: 15:00 Mode of Arrival: Walk-In Information Source: Family, Fdc, EMT Primary Care Provider: SEAN B[place]MINGHAM Nursing and Triage Documentation Reviewed and Agree: Yes Respiratory Complaint Exam - Respiratory Complaint/Exam Onset/Duration: 1 day Symptoms Are: Still present Timing: Constant Initial Severity: Moderate Current Severity: Moderate Location: Chest Character: Reports: Productive cough Aggravating: Reports: URI Alleviating: Reports: None Associated Signs and Symptoms: Reports: Rapid breathing, Dyspnea, Fever, Chills , Wheezing, URI, Decreased oral intake. Denies: Chest pain, Pleuritic chest pain, Hemoptysis, Dizziness, Calf pain, Calf swelling, Edema, Nasal congestion, Hoarseness, Sinus discomfort, Vomiting, Sore throat, Weight loss, Increased thirst, Increased appetite, Increased urination History of Healthcare-Acquired Pneumonia: Lives at senior living Related Surgical History: Reports: None Pulmonary Embolism Risk Factors: None Cardiac Risk Factors: Denies: CHF Tuberculosis Risk Factors: Reports: Communal living Home Oxygen Use: Yes Recent Stress Test: No Recent Echo/LV Function: No Current Antibiotic Use: No Current Asthma Medication Use: Yes Respiratory Distress: Moderate Dysphagia Present: No Stridor Present: No JVD Present: No Accessory Muscle Use: No Retractions: Not Present Diminished Breath Sounds: No Sinus Tenderness: None Grunting Respirations: No Kussmaul Respirations: No Differential Diagnoses: COPD Exacerbation, Pneumonia, URI, Influenza, MRSA Review of Systems - Review Of Systems Constitutional: Reports: Chills, Fever, Weakness, Loss of appetite Ears, Nose, Mouth, Throat: Denies: Mouth pain Respiratory: Reports: Cough, Short of air, Wheezing Cardiac: Denies: Chest pain, Lightheadedness GI: Denies: Abdomen distended, Abdominal pain, Nausea : Reports: Incontinence (with indwelling cath) Musculoskeletal: Denies: Back pain Skin: Denies: Bruising, Rash Neurological: Reports: Anxiety, Weakness All Other Systems: Other (limited due to illness and age.) Past Medical History - Past Medical History Previously Healthy: Yes Endocrine: Reports: None Cardiovascular: Reports: None Respiratory: Reports: COPD Hematological: Reports: None Gastrointestinal: Reports: Other Genitourinary: Reports: None Neuro/Psych: Reports: None Musculoskeletal: Reports: Arthritis 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 ), Other (Mediport ) - Family History Family History: Reports: None - Social History Smoking Status: Former smoker Hx Substance Use: No Alcohol Screening: None Physical Exam - Physical Exam Appearance: Ill-appearing, Thin Ill-appearing: Moderate Eyes: MIRYAM, EOMI, Conjunctiva clear Neck: Supple Respiratory: Crackles, Rhonchi Cardiovascular: Pulses normal, No rub, No murmur, Tachycardia GI/: Soft Musculoskeletal: Normal strength, ROM intact, No edema, No calf tenderness Skin: Warm, Dry, Normal color Neurological: Motor intact (contractures ), Alert Psychiatric: Anxious Interpretation - Radiology Interpretation Radiology Interpretation By: Radiologist Radiology Results: No acute changes Exam Interpreted: Portable CXR - EKG Interpretation Time of EKG #1: 15:08 Rate: Tachy Rhythm: Sinus Ectopy: None Hilliards: NL ST Segment: Normal Interpretation: sinus tachy ( artifact- tremors) Physician Notification - Case Discussed Physician Notified: [place] Time of Notification: 17:00 (ok to admit to the hosptial ) Critical Care Note - Critical Care Note Total Time (mins): 30 Course - Course Hematology/Chemistry: 07/04/16 15:04 07/04/16 15:25 Orders, Labs, Meds: Lab Review 07/04/16 07/04/16 07/04/16 15:04 15:25 16:15 WBC 24.59 H RBC 4.06 L Hgb 12.7 L Hct 38.7 L MCV 95.3 H MCH 31.3 H MCHC 32.8 RDW Coeff of [place] 20.7 H Plt Count 266 Immature Gran % (Auto) 0.9 Neut % (Auto) 88.6 Lymph % (Auto) 4.5 L Cecil % (Auto) 5.5 Eos % (Auto) 0.0 Baso % (Auto) 0.5 Immature Gran # (Auto) 0.2 Neut # 21.8 H Lymph # 1.1 Cecil # 1.4 Eos # 0.0 Baso # 0.1 Puncture Site Rr O2 Saturation 90.0 L ABG pH 7.525 H* ABG pCO2 29.9 L ABG pO2 52.0 L* ABG HCO3 24.7 ABG Total CO2 26 ABG Base Excess 2 [place] Test + FiO2 % 21.0 Sodium 141 Potassium 4.6 Chloride 105 Carbon Dioxide 27 Anion Gap 13.6 BUN 22 H Creatinine 1.35 H Estimated GFR (MDRD) 51.00 BUN/Creatinine Ratio 16.29 Glucose 153 H Lactic Acid 17.6 Calcium 9.2 Total Bilirubin 2.22 H AST 23 ALT 18 Alkaline Phosphatase 74 Total Creatine Kinase 87 Troponin I < 0.0100 B-Natriuretic Peptide 115 H Total Protein 6.8 Albumin 3.4 Globulin 3.4 Albumin/Globulin Ratio 1.00 Procalcitonin 0.70 Urine Color Yellow Urine Clarity Turbid Urine pH 5.5 Ur Specific [place] 1.025 Urine Protein 2+ Urine Glucose (UA) Negative Urine Ketones Trace Urine Blood 3+ Urine Nitrite Positive Urine Bilirubin 1+ Urine Urobilinogen 1.0 Ur Leukocyte Esterase 3+ Urine Microscopic RBC 10-20 Urine Microscopic WBC 50-100 Ur Squamous Epith Cells Not present Urine Mucus 1+ Orders Category Date Time Status ABG DRAW REQUEST Stat CARDIO 07/04/16 15:05 Completed EKG-(ED ONLY) Stat CARDIO 07/04/16 15:04 Completed NEBULIZER TREATMENT Stat CARDIO 07/04/16 15:06 Completed ED IV/MEDIPORT/POWERPORT .ONCE EMERGENCY 07/04/16 15:06 Active Plunkett [ED CATHETER INSERTION AND CARE] .ONCE EMERGENCY 07/04/16 15:55 Active ABG Stat LAB 07/04/16 15:04 Completed B-TYPE NATRIURETIC PEPTIDE Stat LAB 07/04/16 15:25 Completed BLOOD CULTURE Stat LAB 07/04/16 15:25 Received CBC W/ AUTO DIFF Stat LAB 07/04/16 15:04 Completed COMPREHENSIVE METABOLIC PANEL Stat LAB 07/04/16 15:25 Completed CREATINE KINASE Stat LAB 07/04/16 15:25 Completed FLU A & B RAPID TEST [RAPID FLU A/B] Stat LAB 07/04/16 16:35 Received LACTIC ACID Stat LAB 07/04/16 15:25 Completed PROCALCITONIN Stat LAB 07/04/16 15:25 Completed TROPONIN I Stat LAB 07/04/16 15:25 Completed UA [URINALYSIS C & S IF INDICATED] Stat LAB 07/04/16 16:15 Completed URINE CULTURE Routine LAB 07/04/16 16:15 Received 0.9 % Sodium Chloride [Saline Flush] MEDS 07/04/16 15:06 Ordered 1 syr IVF PRN PRN Ipratropium/Albuterol Neb [Duoneb] MEDS 07/04/16 15:06 Discontinued 1 vial NEB ONCE STA Levofloxacin/D5w [Levaquin] 100 ml MEDS 07/04/16 16:30 Discontinued IV .STK-MED Levofloxacin/D5w [Levaquin] 500 mg MEDS 07/04/16 15:23 Discontinued Premix 100 ml D5w 1 bag IV ONCE Lidocaine HCl [Uro-Jet] MEDS 07/04/16 15:55 Discontinued 10 ml MUCOUSMEMB ONCE STA Methylprednisolone Sod Succ/Pf [Solu-Medrol 125 mg] MEDS 07/04/16 15:06 Discontinued 125 mg IVP ONCE STA Sodium Chloride 0.9% [Sodium Chloride] 1,000 ml MEDS 07/04/16 16:18 Active IV BOLUS CHEST, 1V AP ONLY Stat RADS 07/04/16 15:04 Completed Medications Generic Name Dose Route Start Last Admin Trade Name Freq PRN Reason Stop Dose Admin Acetaminophen 650 mg 07/04/16 17:06 Tylenol PO Q4H PRN Fever > 102 Albuterol/Ipratropium 1 vial 07/04/16 17:06 Duoneb NEB RTQ2H PRN Wheezing Albuterol/Ipratropium 1 vial 07/04/16 20:00 Duoneb NEB RTQID PERFECTO Aspirin 81 mg 07/05/16 09:00 Aspirin Ec PO DAILY PERFECTO Enoxaparin Sodium 40 mg 07/05/16 09:00 Lovenox SUBCUT DAILY PERFECTO Sodium Chloride 1,000 mls @ 1,000 mls/hr 07/04/16 16:18 07/04/16 16:28 Sodium Chloride IV 07/04/16 17:17 1,000 mls/hr BOLUS STA Administration Aztreonam 1 gm/ Sodium 50 mls @ 75 mls/hr 07/04/16 17:30 Chloride IV Q8HR PERFECTO Sodium Chloride 1,000 mls @ 125 mls/hr 07/04/16 17:30 Sodium Chloride IV .Q8H PERFECTO Levofloxacin/Dextrose 500 mg/ 100 mls @ 100 mls/hr 07/05/16 09:00 Dextrose IV DAILY PERFECTO Methylprednisolone Sodium Succinate 125 mg 07/04/16 21:00 Solu-Medrol 125 Mg IVP Q8HR PERFECTO Non-Formulary Medication 1 each 07/05/16 09:00 Calcium Carbonate/Vitamin D3 [Caltrate 600 Plus D3 Tablet] PO DAILY PERFECTO Non-Formulary Medication 600 mg 07/04/16 21:00 Guaifenesin [Mucinex] PO BID PERFECTO Non-Formulary Medication 1 each 07/05/16 09:00 Lactobac Cmb #3/Fos/Pantethine [Probiotic & Acidophilus Cap] PO DAILY PERFECTO Non-Formulary Medication 30 gm 07/04/16 21:00 Nystatin [Nystatin] TP TID PERFECTO Ondansetron HCl 4 mg 07/04/16 17:06 Zofran 4 Mg/2 Ml IVP Q6H PRN Nausea / Vomiting Polyethylene Glycol 17 gm 07/04/16 17:13 Miralax PO DAILY PRN Constipation Fluticasone/Salmeterol puff 07/04/16 21:00 Advair 250-50 Diskus IH BID PERFECTO Sodium Chloride 1 syr 07/04/16 15:06 Saline Flush IVF PRN PRN To flush IV Tamsulosin HCl 0.4 mg 07/05/16 09:00 Flomax PO DAILY PERFECTO Tiotropium [place] 1 cap 07/05/16 09:00 Spiriva IH DAILY PERFECTO Discontinued Medications Generic Name Dose Route Start Last Admin Trade Name Freq PRN Reason Stop Dose Admin Albuterol/Ipratropium 1 vial 07/04/16 15:06 07/04/16 15:20 Duoneb NEB 07/04/16 15:07 1 vial ONCE STA Administration Levofloxacin/Dextrose 500 mg/ 100 mls @ 100 mls/hr 07/04/16 15:23 07/04/16 16 :32 Dextrose IV 07/04/16 16:22 100 mls/hr ONCE STA Administration Lidocaine HCl 10 ml 07/04/16 15:55 07/04/16 16:00 Uro-Jet MUCOUSMEMB 07/04/16 15:56 10 ml ONCE STA Administration Methylprednisolone Sodium Succinate 125 mg 07/04/16 15:06 07/04/16 15:46 Solu-Medrol 125 Mg IVP 07/04/16 15:07 125 mg ONCE STA Administration Vital Signs: Temp Pulse Resp BP Pulse Ox 07/04/16 14:45 100.2 F H 124 H 32 H 116/68 92 L Departure - Departure Time of Disposition: 17:15 Disposition: ADMITTED INPATIENT Discharge Problem: Bronchitis Urinary tract infection Qualifiers: Urinary tract infection type: site unspecified Hematuria presence: without hematuria Qualifier Code: (N39.0) Urinary tract infection, site not specified Condition: Fair Pt referred to PMD for follow-up: No Allergies/Adverse Reactions: Allergies Penicillins Adverse Reaction (Verified 07/04/16 14:56) Home Medications: Ambulatory Orders RX: Fluticasone/Salmeterol [Advair 250-50 Diskus] 1 each IH BID 04/01/13 RX: Tiotropium [place] [Spiriva] 1 cap IH DAILY 04/01/13 RX: Acetaminophen [Tylenol] 325 mg PO Q4H PRN 08/12/13 RX: Guaifenesin [Mucinex] 600 mg PO BID 08/12/13 RX: Aspirin [Adult Low Dose Aspirin EC] 81 mg PO DAILY 10/01/15 RX: Lactobac Cmb #3/Fos/Pantethine [Probiotic & Acidophilus Cap] 1 each PO DAILY 10/01/15 RX: Tamsulosin HCl [Flomax] 0.4 mg PO DAILY 10/01/15 Calcium Carbonate/Vitamin D3 [Caltrate 600 + D Tablet] 1 each PO DAILY 05/09/16 Polyethylene Glycol 3350 [Miralax] 17 gm PO DAILY PRN 05/09/16 RX: Ipratropium/Albuterol Neb [Duoneb] 1 vial NEB BID 05/09/16 RX: Nystatin 30 gm TP TID 07/04/16
[2016-07-04] MEDS ORDERED: URO-JET MUCOUSMEMB STA (15:55)
[2016-07-04 16:18] LABS: ALANINE AMINOTRANSFERASE 18 U/L (12-78); ALBUMIN 3.4 g/dL (3.4-5.0); ALKALINE PHOSPHATASE 74 U/L (56-119); ANION GAP 13.6; ASPARTATE AMINO TRANSFERASE 23 U/L (15-37); BILIRUBIN,TOTAL 2.22 mg/dL (0.00-1.20); BLOOD UREA NITROGEN 22 mg/dL (7-18); BUN/CREATININE RATIO 16.29; CALCIUM 9.2 mg/dL (8.2-10.2); CARBON DIOXIDE 27 mmol/L (23-31); CHLORIDE 105 mmol/L (98-107); CREATINE KINASE 87 U/L; CREATININE 1.35 mg/dL (0.60-1.10); GLUCOSE 153 mg/dL (82-115); POTASSIUM 4.6 mmol/L (3.5-5.1); SODIUM 141 mmol/L (136-145); TOTAL PROTEIN 6.8 g/dL (5.8-8.1)
[2016-07-04] MEDS ORDERED: SODIUM CHLORIDE 1,000 ML IV STA (16:18)
[2016-07-04 16:22] LABS: BILIRUBIN,URINE 1+ (NEGATIVE); KETONES,URINE Trace (NEGATIVE); LEUKOCYTE ESTERASE ,URINE 3+ (NEGATIVE); NITRITE,URINE Positive (NEGATIVE); PH,URINE 5.5 (5-9); PROTEIN,URINE 2+ (NEGATIVE); URINE, BLOOD 3+ (NEGATIVE)
[2016-07-04 16:24] LABS: ADD URINE MICROSCOPIC YES
[2016-07-04] MEDS ORDERED: LEVAQUIN 100 ML IV ONE (16:30)
[2016-07-04] MEDS ORDERED: DUONEB NEB PRN (17:06)
[2016-07-04] MEDS ORDERED: ZOFRAN 4 MG/2 ML IVP PRN (17:06)
[2016-07-04] MEDS ORDERED: TYLENOL PO PRN (17:06)
[2016-07-04] MEDS ORDERED: MIRALAX PO PRN (17:13)
[2016-07-04 17:20] LABS: FLU INTERNAL QC INTERNAL QC VALID; RAPID FLU A NEGATIVE (NEGATIVE); RAPID FLU B NEGATIVE (NEGATIVE)
[2016-07-04 17:46] VITALS: BMI 19.1
[2016-07-04] MEDS: SODIUM CHLORIDE 1,000 ML IV SCH (18:32)
[2016-07-04] MEDS ORDERED: AZACTAM ONE (18:35)
[2016-07-04] MEDS: AZACTAM 1 GM in SODIUM CHLORIDE 50 ML IV SCH ×2 (18:37→23:30)
[2016-07-04] MEDS ORDERED: MUCINEX ONE (20:14)
[2016-07-04] MEDS ORDERED: NYSTATIN CREAM TP ONE (20:14)
[2016-07-04] MEDS: SOLU-MEDROL 125 MG IVP SCH (20:23)
[2016-07-04] MEDS: DUONEB NEB SCH (20:30)
[2016-07-04] MEDS ORDERED: NYSTATIN 30 GM TP SCH (21:00)
[2016-07-04] MEDS ORDERED: GUAIFENESIN 600 MG PO SCH (21:00)
[2016-07-05] MEDS: SODIUM CHLORIDE 1,000 ML IV SCH ×3 (01:37→12:54)
[2016-07-05] MEDS: DUONEB NEB SCH ×4 (05:05→20:42)
[2016-07-05] MEDS ORDERED: AZACTAM ONE (05:39)
[2016-07-05] MEDS: SOLU-MEDROL 125 MG IVP SCH ×3 (05:41→21:33)
[2016-07-05] MEDS: AZACTAM 1 GM in SODIUM CHLORIDE 50 ML IV SCH (05:55)
[2016-07-05 08:02] LABS: BASOPHILS % (AUTO) 0.1 % (0.0-3.0); HEMATOCRIT 29.6 % (42.0-52.0); HEMOGLOBIN 9.8 g/dl (14.0-18.0); IMMATURE GRANULOCYTE % (AUTO) 0.9 % (0.0-5.0); LYMPHOCYTES # (AUTO) 0.3 K/uL (0.60-3.4); LYMPHOCYTES % (AUTO) 2.1 (10.0-50.0); MEAN CORPUSCULAR HEMOGLOBIN 31.7 pg (27.0-31.0); MEAN CORPUSCULAR HGB CONC 33.1 (31.8-35.4); MEAN CORPUSCULAR VOLUME 95.8 fl (80.0-94.0); MONOCYTES # (AUTO) 0.3 K/uL (0.4-2.0); MONOCYTES % (AUTO) 2.4 (0-10); NEUTROPHILS # (AUTO) 13.3 K/ul (2.0-6.9); NEUTROPHILS % (AUTO) 94.5; PLATELET COUNT 203 10^3/uL (140-440); RED BLOOD COUNT 3.09 10^6/ul (4.70-6.10); WHITE BLOOD COUNT 14.07 K/ul (4.2-10.2)
[2016-07-05 08:15] LABS: ALBUMIN 2.8 g/dL (3.4-5.0); ALBUMIN/GLOBULIN RATIO 1.04; ANION GAP 13.7; BILIRUBIN,TOTAL 1.44 mg/dL (0.00-1.20); BUN/CREATININE RATIO 21.92; CALCIUM 8.2 mg/dL (8.2-10.2); CREATININE 1.14 mg/dL (0.60-1.10); POTASSIUM 3.7 mmol/L (3.5-5.1); TOTAL PROTEIN 5.5 g/dL (5.8-8.1)
[2016-07-05] MEDS ORDERED: NON-FORMULARY MEDICATION (Calcium Carbonate/Vitamin D3 [Caltrate 600 Plus D3 Tablet] 1 EAC PO SCH (09:00)
[2016-07-05] MEDS ORDERED: [UNRECOGNIZED DRUG - OTHER] PO SCH (09:00)
[2016-07-05] MEDS ORDERED: LEVAQUIN 500 MG in PREMIX 100 ML D5W 1 BAG IV SCH (09:00)
[2016-07-05] MEDS: LEVAQUIN 250 MG in PREMIX 50 ML D5W 1 BAG IV SCH (09:41)
[2016-07-05] MEDS: LOVENOX SUBCUT SCH (09:44)
[2016-07-05] MEDS: SPIRIVA IH SCH (09:44)
[2016-07-05] MEDS: NYSTATIN CREAM TP SCH ×3 (09:44→21:16)
[2016-07-05] MEDS: ADVAIR 250-50 DISKUS IH SCH ×3 (09:45→21:34)
[2016-07-05] MEDS: FLORASTOR PO SCH (09:45)
[2016-07-05] MEDS: CALCIUM 500 + VIT D 200 MG TABLET PO SCH (09:45)
[2016-07-05] MEDS: FLOMAX PO SCH (09:45)
[2016-07-05] MEDS: MUCINEX PO SCH ×2 (09:46→21:16)
[2016-07-05] MEDS: ASPIRIN EC PO SCH (09:46)
[2016-07-05] MEDS: AZACTAM 1 GM in SODIUM CHLORIDE 100 ML IV SCH ×2 (12:53→21:15)
[2016-07-05 20:32] LABS: ABG PCO2 32.5 mmHg (35-45); ABG PH 7.439 (7.35-7.45)
[2016-07-05 20:33] LABS: ABG BASE EXCESS -2 (-2.0-2.0); ABG HCO3 22 (22.0-26.0); ABG TCO2 23 (22.0-28.0)
[2016-07-06] MEDS: SODIUM CHLORIDE 1,000 ML IV SCH (02:00)
[2016-07-06] MEDS: DUONEB NEB SCH ×4 (04:40→19:42)
[2016-07-06] MEDS: AZACTAM 1 GM in SODIUM CHLORIDE 100 ML IV SCH ×3 (04:47→21:30)
[2016-07-06 05:22] LABS: BASOPHILS % (AUTO) 0.1 % (0.0-3.0); HEMATOCRIT 27.5 % (42.0-52.0); HEMOGLOBIN 8.9 g/dl (14.0-18.0); IMMATURE GRANULOCYTE % (AUTO) 1.3 % (0.0-5.0); LYMPHOCYTES # (AUTO) 0.4 K/uL (0.60-3.4); LYMPHOCYTES % (AUTO) 2.4 (10.0-50.0); MEAN CORPUSCULAR HEMOGLOBIN 31.4 pg (27.0-31.0); MEAN CORPUSCULAR HGB CONC 32.4 (31.8-35.4); MEAN CORPUSCULAR VOLUME 97.2 fl (80.0-94.0); MONOCYTES # (AUTO) 0.5 K/uL (0.4-2.0); MONOCYTES % (AUTO) 3.1 (0-10); NEUTROPHILS # (AUTO) 14.6 K/ul (2.0-6.9); NEUTROPHILS % (AUTO) 93.1; PLATELET COUNT 213 10^3/uL (140-440); RED BLOOD COUNT 2.83 10^6/ul (4.70-6.10); WHITE BLOOD COUNT 15.69 K/ul (4.2-10.2)
[2016-07-06] MEDS: SOLU-MEDROL 125 MG IVP SCH ×3 (05:40→22:06)
[2016-07-06 05:42] LABS: ALBUMIN 2.7 g/dL (3.4-5.0); ALBUMIN/GLOBULIN RATIO 1.08; ANION GAP 12.3; BILIRUBIN,TOTAL 0.72 mg/dL (0.00-1.20); CALCIUM 8.3 mg/dL (8.2-10.2); POTASSIUM 4.3 mmol/L (3.5-5.1); TOTAL PROTEIN 5.2 g/dL (5.8-8.1)
[2016-07-06] MEDS: LOVENOX SUBCUT SCH (09:42)
[2016-07-06] MEDS: FLOMAX PO SCH (09:42)
[2016-07-06] MEDS: ASPIRIN EC PO SCH (09:42)
[2016-07-06] MEDS: MUCINEX PO SCH ×2 (09:42→21:31)
[2016-07-06] MEDS: CALCIUM 500 + VIT D 200 MG TABLET PO SCH (09:42)
[2016-07-06] MEDS: NYSTATIN CREAM TP SCH ×3 (09:43→21:30)
[2016-07-06] MEDS: SPIRIVA IH SCH (09:43)
[2016-07-06] MEDS: ADVAIR 250-50 DISKUS IH SCH ×2 (09:43→21:30)
--- NOTE | 2016-07-06 09:43 | HP ---
DATE OF SERVICE: 07/04/16 REASON FOR HOSPITALIZATION: Pneumonia and possibility of urinary tract infection. HISTORY OF PRESENT ILLNESS: The patient is a 80 year old white male who is a resident of the long-term was brought to the emergency room with shortness breath, cough, congestion, hypoxemia. The patient in the long-term was noted change in the patient's condition. He was sent out to [facility] Emergency Room for further investigation. ER physician did the chest x-ray and several other test which revealed possibility of pneumonia with respiratory failure and also there is a possibility of urinary tract infection. It is to be noted that patient has Plunkett Catheter. His urine is going to look the way it was reported. REVIEW OF SYSTEMS: CONSTITUTIONAL: No night sweats. Weakness and fatigue. No fever or chills. HEENT: Eyes: No visual changes. No eye pain. No eye discharge. ENT: No runny nose. No epistaxis. No sinus pain. No sore throat. No odynophagia. No ear pain. No congestion. RESPIRATORY: Cough and congestion with yellowish sputum production. No hemoptysis. CARDIOVASCULAR: No angina symptoms. No CHF symptoms. No atypical chest pain for CAD. No palpitations. No shortness of breath. Pleuritic type of pain, sharp. No PND. No Orthopnea. GASTROINTESTINAL: No abdominal pain. No nausea or vomiting. No diarrhea or constipation. No hematemesis. No hematochezia. Poor appetite. No nausea. No vomiting. GENITOURINARY: No urgency. No frequency. No dysuria. No hematuria. No obstructive symptoms. No discharge. No pain. No significant abnormal bleeding. MUSCULOSKELETAL: No musculoskeletal pain. No joint swelling. No arthritis. NEUROLOGICAL: No headache. No neck pain. No syncope. No seizures. No dizziness. PSYCHIATRIC: Confusion at times. Not anxious. No depression. No suicidal thoughts. No homicidal thoughts. SKIN: No rash. No lesions. No wounds. ENDOCRINE: No unexplained weight loss. No weight gain. HEMATOLOGIC/LYMPHATIC: No anemia. No purpura. No petechiae. No prolonged or excessive bleeding. No palpable lymph nodes. PERSONAL/FAMILY/SOCIAL HISTORY: [facility]. is unable to take care of him at home with multiple medical problems. The patient is on home oxygen. No smoking and no alcohol abuse. Unable to do most of the activity of daily living. Requires a lot of help. Note the patient is a DNR. PAST MEDICAL/SURGICAL PROBLEMS: History of COPD with chronic bronchitis Recurrent pneumonia Appendectomy Carpal Tunnel repair Fracture of the hip Right below knee amputation. MEDICATIONS: Advair 250-50 discus one puff twice a day Spiriva one inhalation a day Tylenol 325mg PRN Mucinex 600mg PO twice a day Aspirin low dose 81mg PO daily Tamsulosin 0.4mg PO daily DUONEB Twice a day Miralax 17gram PO daily Nystatin 30grams Three times a day ALLERGIES: Penicillin PHYSICAL EXAMINATION: GENERAL: The patient is oriented to time, place and person and sleepy. VITAL SIGNS: Temperature 100.2, pulse 124, respiratory 32 and blood pressure 116 /68 HEENT: Head normocephalic, atraumatic. Eyes: Extraocular muscles are intact. Pupils are equal, round and reactive to light and accommodation. Ears: No lesions. Nose appeared normal. Throat: No exudate or erythema. NECK: Supple. No JVP, no carotid bruit. No lymphadenopathy or thyromegaly. LUNGS: Decreased breath sounds with mild wheeze. Percussion note normal. Chest symmetrical. HEART: S1, S2, no S3. No murmurs. No cyanosis or clubbing. No ascites. Pulses: Dorsalis pedis and posterior tibial pulses +1 to +2 both sides. ABDOMEN: Soft. Nontender. Bowel sounds active. No CVA tenderness. No mass felt. EXTREMITIES: Trace edema. Full range of motion of all extremities, equal. Right below knee amputation. NEUROLOGIC: No focal deficit. Cranial nerves II through XII are grossly intact. No headache, no double vision or headache. SKIN: Not dry. Intact. Turgor - normal. LYMPHATIC: No palpable lymph nodes/no lymphedema. MUSCULOSKELETAL: Normal joints with no swelling. Muscle tone is normal. LABS: Atrial blood gasses showed pO2 52, pCO2 29, normal pH 7.52 with saturation less than 90% on room air. The patient is in respiratory failure. No Co2 retention. Hgb 12.7, hct 38, WBC 24,000 normal differential, lactic acid 17.6 which was normal. ASSESSMENT: 1. Acute respiratory failure 2. Acute bronchitis with possibility on pneumonitis 3. Possibility of urinary tract infection 4. Severe COPD PLAN: 1. IV steroids 2. Solu-Medrol Q 8 hours 3. IV antibiotics Levaquin and Azactam 4. Serial EKG's 5. Telemetry 6. NEBS Treatment 7. Monitor oximetry 8. Monitor telemetry CONDITION: Stable PROGNOSIS: Poor TIME SPENT: More than 70 minutes. MTDD
--- NOTE | 2016-07-06 09:58 | PN ---
DATE OF SERVICE: 07/05/16 SUBJECTIVE: The patient is a 80 year old white male hospitalized with acute respiratory failure, bronchitis/pneumonitis along with possibility of urinary tract infection. The patient's condition had changed in the longterm with change in the mental status with more confusion and sleepiness. The patient's condition has improved within 24 hours and he had eaten 100% of breakfast this morning. The patient is resting at present time. REVIEW OF SYSTEMS: CONSTITUTIONAL: No night sweats. No fatigue, malaise, lethargy. No fever or chills. HEENT: Eyes: No visual changes. No eye pain. No eye discharge. ENT: No runny nose. No epistaxis. No sinus pain. No sore throat. No odynophagia. No congestion. RESPIRATORY: No cough, no congestion. No hemoptysis. CARDIOVASCULAR: No angina symptoms. No CHF symptoms. No atypical chest pain for CAD. No palpitations. No shortness of breath.No PND No Orthopnea. GASTROINTESTINAL: No abdominal pain. No nausea or vomiting. No diarrhea or constipation. No hematemesis. No hematochezia. GENITOURINARY: No urgency. No frequency. No dysuria. No hematuria. No obstructive symptoms. No discharge. No pain. No significant abnormal bleeding. MUSCULOSKELETAL: No musculoskeletal pain; no joint swelling. NEUROLOGICAL: No headache. No neck pain. No syncope. No seizures. No dizziness. PSYCHIATRIC: Not anxious. No depression. No suicidal thoughts. No homicidal thoughts. SKIN: No rash. No lesions. No wounds. ENDOCRINE: No unexplained weight loss. No weight gain. HEMATOLOGIC/LYMPHATIC: No anemia. No purpura. No petechiae. No prolonged or excessive bleeding. No palpable lymph nodes. PHYSICAL EXAMINATION: GENERAL: The patient is sleeping and oriented to person. VITAL SIGNS: Temperature 96.9, pulse 100 per minute, respiratory rate 20, blood pressure 111/60 and pulse ox 96%. HEENT: Head normocephalic, atraumatic. Eyes: Extraocular muscles are intact. Pupils are equal, round and reactive to light and accommodation. Ears: No lesions. Nose appeared normal. Throat: No exudate or erythema. NECK: Supple. No JVD, no carotid bruit. No lymphadenopathy or thyromegaly. LUNGS: Decreased breath sounds bilaterally. Percussion note normal. Chest symmetrical. HEART: S1, S2, no S3. No murmurs. No cyanosis or clubbing. No ascites. Pulses: Dorsalis pedis and posterior tibial pulses +1 to +2 both sides. ABDOMEN: Soft. Nontender. Bowel sounds active. No CVA tenderness. No mass felt. EXTREMITIES: No edema. Full range of motion of all extremities, equal. NEUROLOGIC: No focal deficit. Cranial nerves II through XII are grossly intact. No headache, no double vision or headache. SKIN: Not dry. Intact. Turgor - normal. LYMPHATIC: No palpable lymph nodes/no lymphedema. MUSCULOSKELETAL: Normal joints with no swelling. Muscle tone is normal. LABS: Hgb 9.8, hct 29, WBC 14,000 normal differential, creatinine 1.1, BUN 25, potassium 3.7, glucose 178, BNP 115 and TSH normal. ASSESSMENT: 1. Acute bronchitis/ pneumonitis seems to be resolving with the IV antibiotics, steroids and NEBS treatment 2. Urinary tract infection likely treated with Azactam and Levaquin 3. Dehydration seems to be resolving with good skin turgor at present times 4. Other medical conditions are under control CONDITION: IMPROVING The patient is DNR. TIME SPENT: More than 30 minutes. Plan and coordination of the patient's care discussed in the presence of nurse. JEANETTE
[2016-07-06 10:12] LABS: ABG BASE EXCESS -4 (-2.0-2.0); ABG PCO2 32.3 mmHg (35-45); ABG TCO2 22 (22.0-28.0)
[2016-07-06] MEDS ORDERED: LEVAQUIN 50 ML IV ONE (11:32)
[2016-07-06] MEDS: LEVAQUIN 250 MG in PREMIX 50 ML D5W 1 BAG IV SCH (11:36)
[2016-07-06] MEDS: FLORASTOR PO SCH (11:39)
[2016-07-07] MEDS: AZACTAM 1 GM in SODIUM CHLORIDE 100 ML IV SCH (04:25)
[2016-07-07] MEDS: SODIUM CHLORIDE 1,000 ML IV SCH ×4 (04:25→21:05)
[2016-07-07 05:12] LABS: BASOPHILS % (AUTO) 0.1 % (0.0-3.0); HEMATOCRIT 28.4 % (42.0-52.0); IMMATURE GRANULOCYTE % (AUTO) 1.4 % (0.0-5.0); LYMPHOCYTES # (AUTO) 0.3 K/uL (0.60-3.4); LYMPHOCYTES % (AUTO) 2.5 (10.0-50.0); MEAN CORPUSCULAR HEMOGLOBIN 31.4 pg (27.0-31.0); MEAN CORPUSCULAR HGB CONC 31.7 (31.8-35.4); MONOCYTES # (AUTO) 0.3 K/uL (0.4-2.0); MONOCYTES % (AUTO) 2.7 (0-10); NEUTROPHILS # (AUTO) 11.6 K/ul (2.0-6.9); NEUTROPHILS % (AUTO) 93.3; PLATELET COUNT 204 10^3/uL (140-440); RED BLOOD COUNT 2.87 10^6/ul (4.70-6.10); WHITE BLOOD COUNT 12.39 K/ul (4.2-10.2)
[2016-07-07 05:27] LABS: ALBUMIN 2.6 g/dL (3.4-5.0); ALBUMIN/GLOBULIN RATIO 1.13; BILIRUBIN,TOTAL 0.57 mg/dL (0.00-1.20); BUN/CREATININE RATIO 30.2; CALCIUM 8.3 mg/dL (8.2-10.2); CREATININE 0.96 mg/dL (0.60-1.10); TOTAL PROTEIN 4.9 g/dL (5.8-8.1)
[2016-07-07] MEDS: SOLU-MEDROL 125 MG IVP SCH ×3 (05:52→21:50)
[2016-07-07] MEDS: DUONEB NEB SCH ×4 (05:53→20:24)
--- NOTE | 2016-07-07 10:27 | PN ---
DATE OF SERVICE: 07/06/16 SUBJECTIVE: The patient is a 80 year old white male hospitalized with acute bronchitis/ pneumonitis, respiratory failure and Urosepsis. The patient's condition has slowly improved. He is alert this morning and oriented to person. His appetite is really good and his hydration status has improved. REVIEW OF SYSTEMS: CONSTITUTIONAL: No night sweats. No fatigue, malaise, lethargy. No fever or chills. HEENT: Eyes: No visual changes. No eye pain. No eye discharge. ENT: No runny nose. No epistaxis. No sinus pain. No sore throat. No odynophagia. No congestion. RESPIRATORY: No cough, no congestion. No hemoptysis. CARDIOVASCULAR: No angina symptoms. No CHF symptoms. No atypical chest pain for CAD. No palpitations. No shortness of breath. No PND. No Orthopnea. GASTROINTESTINAL: No abdominal pain. No nausea or vomiting. No diarrhea or constipation. No hematemesis. No hematochezia. Appetite has improved. GENITOURINARY: No urgency. No frequency. No dysuria. No hematuria. No obstructive symptoms. No discharge. No pain. No significant abnormal bleeding. MUSCULOSKELETAL: No musculoskeletal pain; no joint swelling. NEUROLOGICAL: No headache. No neck pain. No syncope. No seizures. No dizziness. PSYCHIATRIC: Not anxious. No depression. No suicidal thoughts. No homicidal thoughts. SKIN: No rash. No lesions. No wounds. ENDOCRINE: No unexplained weight loss. No weight gain. HEMATOLOGIC/LYMPHATIC: No anemia. No purpura. No petechiae. No prolonged or excessive bleeding. No palpable lymph nodes. PHYSICAL EXAMINATION: GENERAL: The patient is alert and oriented person. VITAL SIGNS: Temperature 97.5, pulse 90, respiratory rate 18, blood pressure 105/60 and pulse ox 94% on 3 liters. HEENT: Head normocephalic, atraumatic. Eyes: Extraocular muscles are intact. Pupils are equal, round and reactive to light and accommodation. Ears: No lesions. Nose appeared normal. Throat: No exudate or erythema. NECK: Supple. No JVD, no carotid bruit. No lymphadenopathy or thyromegaly. LUNGS: Decreased breath sounds but clear to auscultation. Percussion note normal. Chest symmetrical. HEART: S1, S2, no S3. No murmurs. No cyanosis or clubbing. No ascites. Pulses: Dorsalis pedis and posterior tibial pulses +1 to +2 both sides. ABDOMEN: Soft. Nontender. Bowel sounds active. No CVA tenderness. No mass felt. EXTREMITIES: No edema. Full range of motion of all extremities, equal. NEUROLOGIC: No focal deficit. Cranial nerves II through XII are grossly intact. No headache, no double vision or headache. SKIN: Not dry. Intact. Turgor - normal. LYMPHATIC: No palpable lymph nodes/no lymphedema. MUSCULOSKELETAL: Normal joints with no swelling. Muscle tone is normal. LABS: Hgb 8.9, hct 27, WBC 15,000 normal differential, creatinine 1, BUN 26, potassium 4.3, glucose 144, BNP 115 and TSH 1.4. ABG this morning pO2 69, pCO2 32, pH 7.42 with 94 % saturation on two liters. ASSESSMENT: 1. Acute bronchitis 2. Respiratory failure seems to have resolved, now has stable chronic respiratory failure with oxygen saturation of 94% with oxygen 3. UTI seems to be under control with clear urine coming out of Plunkett Catheter Medical conditions otherwise are stable. PLAN: 1. Continue IV antibiotics Levaquin and Azactam 2. Continue IV fluids 3. Continue NEBS treatment 4. Continue Steroids. CONDITION: Continued to improve and his respiratory status has improved. Family is also worried about cardiovascular status. The patient is DNR and they want comfort besides the treatment for his respiratory and cardiac problems. TIME SPENT: More than 30 minutes. Plan and coordination of the patient's care discussed in the presence of nurse. JEANETTE
[2016-07-07] MEDS: ASPIRIN EC PO SCH (10:28)
[2016-07-07] MEDS: ADVAIR 250-50 DISKUS IH SCH ×2 (10:28→21:44)
[2016-07-07] MEDS: CALCIUM 500 + VIT D 200 MG TABLET PO SCH (10:29)
[2016-07-07] MEDS: FLOMAX PO SCH (10:29)
[2016-07-07] MEDS: LEVAQUIN 250 MG in PREMIX 50 ML D5W 1 BAG IV SCH (10:30)
[2016-07-07] MEDS: MUCINEX PO SCH ×2 (10:30→21:45)
[2016-07-07] MEDS: LOVENOX SUBCUT SCH (10:30)
[2016-07-07] MEDS: NYSTATIN CREAM TP SCH ×3 (10:31→21:45)
[2016-07-07] MEDS: SPIRIVA IH SCH (10:31)
[2016-07-07] MEDS: ZOSYN 3.375 GM 3.375 GM in SODIUM CHLORIDE 100 ML IV SCH ×2 (12:43→17:27)
[2016-07-08] MEDS: ZOSYN 3.375 GM 3.375 GM in SODIUM CHLORIDE 100 ML IV SCH ×4 (00:35→19:36)
[2016-07-08] MEDS: SOLU-MEDROL 125 MG IVP SCH (04:46)
[2016-07-08] MEDS: DUONEB NEB SCH ×4 (05:01→20:38)
[2016-07-08 05:04] LABS: BASOPHILS % (AUTO) 0.2 % (0.0-3.0); HEMATOCRIT 28.9 % (42.0-52.0); HEMOGLOBIN 9.5 g/dl (14.0-18.0); IMMATURE GRANULOCYTE % (AUTO) 1.8 % (0.0-5.0); LYMPHOCYTES # (AUTO) 0.5 K/uL (0.60-3.4); LYMPHOCYTES % (AUTO) 3.8 (10.0-50.0); MEAN CORPUSCULAR HEMOGLOBIN 31.9 pg (27.0-31.0); MEAN CORPUSCULAR HGB CONC 32.9 (31.8-35.4); MONOCYTES # (AUTO) 0.8 K/uL (0.4-2.0); MONOCYTES % (AUTO) 5.9 (0-10); NEUTROPHILS # (AUTO) 11.5 K/ul (2.0-6.9); NEUTROPHILS % (AUTO) 88.3; PLATELET COUNT 223 10^3/uL (140-440); RED BLOOD COUNT 2.98 10^6/ul (4.70-6.10)
[2016-07-08 05:41] LABS: ALBUMIN 2.6 g/dL (3.4-5.0); ALBUMIN/GLOBULIN RATIO 1.08; ANION GAP 9.7; BILIRUBIN,TOTAL 0.89 mg/dL (0.00-1.20); BUN/CREATININE RATIO 23.95; CALCIUM 7.9 mg/dL (8.2-10.2); CREATININE 0.96 mg/dL (0.60-1.10); POTASSIUM 3.7 mmol/L (3.5-5.1)
[2016-07-08] MEDS: MUCINEX PO SCH ×2 (08:44→21:42)
[2016-07-08] MEDS: CALCIUM 500 + VIT D 200 MG TABLET PO SCH (08:44)
[2016-07-08] MEDS: ASPIRIN EC PO SCH (08:44)
[2016-07-08] MEDS: FLOMAX PO SCH (08:45)
[2016-07-08] MEDS: LOVENOX SUBCUT SCH (08:45)
[2016-07-08] MEDS: NYSTATIN CREAM TP SCH ×3 (08:45→21:42)
[2016-07-08] MEDS: ADVAIR 250-50 DISKUS IH SCH ×2 (08:46→21:41)
[2016-07-08] MEDS: SPIRIVA IH SCH (08:46)
[2016-07-08] MEDS: PREDNISONE PO SCH (19:36)
[2016-07-08] MEDS: CALMOSEPTINE OINTMENT TP SCH ×2 (20:17→21:41)
[2016-07-09] MEDS: ZOSYN 3.375 GM 3.375 GM in SODIUM CHLORIDE 100 ML IV SCH ×3 (00:18→12:30)
[2016-07-09] MEDS: DUONEB NEB SCH ×3 (05:18→14:02)
[2016-07-09 05:53] LABS: BASOPHILS % (AUTO) 0.2 % (0.0-3.0); HEMATOCRIT 33.2 % (42.0-52.0); HEMOGLOBIN 11.1 g/dl (14.0-18.0); IMMATURE GRANULOCYTE % (AUTO) 1.9 % (0.0-5.0); LYMPHOCYTES # (AUTO) 0.8 K/uL (0.60-3.4); LYMPHOCYTES % (AUTO) 4.7 (10.0-50.0); MEAN CORPUSCULAR HEMOGLOBIN 31.9 pg (27.0-31.0); MEAN CORPUSCULAR HGB CONC 33.4 (31.8-35.4); MEAN CORPUSCULAR VOLUME 95.4 fl (80.0-94.0); MONOCYTES % (AUTO) 5.6 (0-10); NEUTROPHILS # (AUTO) 15.1 K/ul (2.0-6.9); NEUTROPHILS % (AUTO) 87.6; PLATELET COUNT 212 10^3/uL (140-440); RED BLOOD COUNT 3.48 10^6/ul (4.70-6.10); WHITE BLOOD COUNT 17.27 K/ul (4.2-10.2)
[2016-07-09 06:15] LABS: ALBUMIN 2.7 g/dL (3.4-5.0); ALBUMIN/GLOBULIN RATIO 1.13; ANION GAP 8.7; BILIRUBIN,TOTAL 1.68 mg/dL (0.00-1.20); BUN/CREATININE RATIO 21.5; CALCIUM 8.1 mg/dL (8.2-10.2); CREATININE 0.93 mg/dL (0.60-1.10); POTASSIUM 3.7 mmol/L (3.5-5.1); TOTAL PROTEIN 5.1 g/dL (5.8-8.1)
[2016-07-09] MEDS: NYSTATIN CREAM TP SCH (08:48)
[2016-07-09] MEDS: PREDNISONE PO SCH (08:48)
[2016-07-09] MEDS: MUCINEX PO SCH (08:48)
[2016-07-09] MEDS: ASPIRIN EC PO SCH (08:48)
[2016-07-09] MEDS: FLOMAX PO SCH (08:48)
[2016-07-09] MEDS: LOVENOX SUBCUT SCH (08:48)
[2016-07-09] MEDS: CALCIUM 500 + VIT D 200 MG TABLET PO SCH (08:48)
[2016-07-09] MEDS: CALMOSEPTINE OINTMENT TP SCH (08:49)
--- NOTE | 2016-07-09 09:23 | PN ---
DATE OF SERVICE: 07/07/16 SUBJECTIVE: 80-year-old white male hospitalized with acute bronchitis, urosepsis. The patient's condition has improved. The patient has grown Pseudomonas from the urine. They are resistant to Levaquin but in fact, the patient's condition clinically has improved. He is afebrile. His urine is clearing up but the patient is sensitive to Piperacillin, Tazobactam that is Zosyn so will discontinue Levaquin and Rocephin and go with Piperacillin and Tazobactam which should take care of his upper respiratory tract infection also. The patient seems to be oriented to place and person. REVIEW OF SYSTEMS: CONSTITUTIONAL: No night sweats. No fatigue, malaise, lethargy. No fever or chills. HEENT: Eyes: No visual changes. No eye pain. No eye discharge. ENT: No runny nose. No epistaxis. No sinus pain. No sore throat. No odynophagia. No congestion. RESPIRATORY: No cough, no congestion. No hemoptysis. CARDIOVASCULAR: No angina symptoms. No CHF symptoms. No atypical chest pain for CAD. No palpitations. No shortness of breath. GASTROINTESTINAL: Appetite has improved remarkably. He is eating 100% of his meals. No abdominal pain. No nausea or vomiting. No diarrhea or constipation. No hematemesis. No hematochezia. GENITOURINARY: No urgency. No frequency. No dysuria. No hematuria. No obstructive symptoms. No discharge. No pain. No significant abnormal bleeding. MUSCULOSKELETAL: No musculoskeletal pain; no joint swelling. NEUROLOGICAL: No headache. No neck pain. No syncope. No seizures. No dizziness. PSYCHIATRIC: Not anxious. No depression. No suicidal thoughts. No homicidal thoughts. SKIN: No rash. No lesions. No wounds. ENDOCRINE: No unexplained weight loss. No weight gain. HEMATOLOGIC/LYMPHATIC: No anemia. No purpura. No petechiae. No prolonged or excessive bleeding. No palpable lymph nodes. PHYSICAL EXAMINATION: VITAL SIGNS: Temperature 97.9, pulse 100/min, respiratory rate 20, BP 128/60, pulse ox 95%. HEENT: Head normocephalic, atraumatic. Eyes: Extraocular muscles are intact. Pupils are equal, round and reactive to light and accommodation. Ears: No lesions. Nose appeared normal. Throat: No exudate or erythema. NECK: Supple. No JVD, no carotid bruit. No lymphadenopathy or thyromegaly. LUNGS: Decreased breath sounds bilaterally. Clear to auscultation. Percussion note normal. Chest symmetrical. HEART: S1, S2, no S3. No murmurs. No cyanosis or clubbing. No ascites. Pulses: Dorsalis pedis and posterior tibial pulses +1 to +2 both sides. ABDOMEN: Soft. Nontender. Bowel sounds active. No CVA tenderness. No mass felt. EXTREMITIES: No pedal edema. Full range of motion of all extremities, equal. NEUROLOGIC: No focal deficit. Cranial nerves II through XII are grossly intact. No headache, no double vision or headache. SKIN: Not dry. Intact. Turgor - normal. LYMPHATIC: No palpable lymph nodes/no lymphedema. MUSCULOSKELETAL: Normal joints with no swelling. Muscle tone is normal. LABS: Hemoglobin 9, hematocrit 28, WBC 12,000, normal differential. Creatinine 0.9, BUN 29, potassium 4. ASSESSMENT: 1. ACUTE RESPIRATORY FAILURE RESOLVING 2. ACUTE BRONCHITIS, UNDER CONTROL 3. URINARY TRACT INFECTION SEEMS TO BE MORE LIKE COLONIZATION BUT AGAIN SEEMS TO BE CLEARING UP 4. MENTAL STATUS IMPROVED 5. DEMENTIA STABLE WITH IMPROVED MENTAL STATUS 6. COPD STABLE PLAN: 1. Continue antibiotics as mentioned above 2. Levaquin, Azactam to be discontinued 3. The patient will be on Zosyn 4. Continue IV steroids and nebs treatment TIME SPENT: More than 30 minutes. Plan and coordination of the patient's care discussed in the presence of nurse. JEANETTE
[2016-07-09] MEDS: SPIRIVA IH SCH (09:30)
[2016-07-09] MEDS: ADVAIR 250-50 DISKUS IH SCH (09:30)
--- NOTE | 2016-07-09 10:52 | PN ---
DATE OF SERVICE: 07/08/16 SUBJECTIVE: The patient is a 80 year old white male hospitalized with acute respiratory failure, urosepsis and the patient has dementia and he is a resident of the residential. The patient is awake and recognized me. Appetite is excellent. REVIEW OF SYSTEMS: CONSTITUTIONAL: No night sweats. No fatigue, malaise, lethargy. No fever or chills. HEENT: Eyes: No visual changes. No eye pain. No eye discharge. ENT: No runny nose. No epistaxis. No sinus pain. No sore throat. No odynophagia. No congestion. RESPIRATORY: No cough, no congestion. No hemoptysis. CARDIOVASCULAR: No angina symptoms. No CHF symptoms. No atypical chest pain for CAD. No palpitations. No shortness of breath. GASTROINTESTINAL: No abdominal pain. No nausea or vomiting. No diarrhea or constipation. No hematemesis. No hematochezia. GENITOURINARY: No urgency. No frequency. No dysuria. No hematuria. No obstructive symptoms. No discharge. No pain. No significant abnormal bleeding. MUSCULOSKELETAL: No musculoskeletal pain; no joint swelling. NEUROLOGICAL: No headache. No neck pain. No syncope. No seizures. No dizziness. PSYCHIATRIC: Not anxious. No depression. No suicidal thoughts. No homicidal thoughts. SKIN: No rash. No lesions. No wounds. ENDOCRINE: No unexplained weight loss. No weight gain. HEMATOLOGIC/LYMPHATIC: No anemia. No purpura. No petechiae. No prolonged or excessive bleeding. No palpable lymph nodes. PHYSICAL EXAMINATION: GENERAL: The patient is oriented to person. VITAL SIGNS: Temperature 97.8, pulse 80, respiratory rate 18, blood pressure 138/75 and pulse ox 97%. HEENT: Head normocephalic, atraumatic. Eyes: Extraocular muscles are intact. Pupils are equal, round and reactive to light and accommodation. Ears: No lesions. Nose appeared normal. Throat: No exudate or erythema. NECK: Decreased breath sounds . Supple. No JVD, no carotid bruit. No lymphadenopathy or thyromegaly. LUNGS: Clear to auscultation. Percussion note normal. Chest symmetrical. HEART: S1, S2, no S3. No murmurs. No cyanosis or clubbing. No ascites. Pulses: Dorsalis pedis and posterior tibial pulses +1 to +2 both sides. ABDOMEN: Soft. Nontender. Bowel sounds active. No CVA tenderness. No mass felt. EXTREMITIES: No edema. Full range of motion of all extremities, equal. Right below knee amputation. NEUROLOGIC: No focal deficit. Cranial nerves II through XII are grossly intact. No headache, no double vision or headache. SKIN: Not dry. Intact. Turgor - normal. LYMPHATIC: No palpable lymph nodes/no lymphedema. MUSCULOSKELETAL: Normal joints with no swelling. Muscle tone is normal. LABS: hgb 9.5, hct 28, WBC 13,000 normal differential, creatinine 0.9, BUN 23, potassium 3.7 and BNP 115. ASSESSMENT: 1. Acute bronchitis/pneumonitis seems to be have been under control 2. Respiratory failure under control, the patient has chronic respiratory failure on home oxygen all the time for several years 3. COPD, severe 4. Urosepsis with Plunkett Catheter with neurogenic bladder. 5. The patient has pseudomonas whether patient is symptomatic from that we don' t know but pseudomonas is sensitive to Zosyn which he is on right now. CONDITION: Stable. TIME SPENT: More than 30 minutes. Plan and coordination of the patient's care discussed in the presence of nurse. JEANETTE
[2016-07-09 11:55] VITALS: BP 118/66; TEMP 97
--- NOTE | 2016-07-09 12:31 | CM.DICTOOL ---
ADMISSION: 07/04/16 16:47 DISCHARGE: July 09, 2016 DATE OF SERVICE: 07/09/16 FINAL DIAGNOSIS Urinary Tract Infection, pseudomonas aeruginosa organism Bronchitis/Pneumonitis Chronic Respiratory Failure Anemia Osteoarthritis Lung cancer, 2011 with tumor removed Aortic Aneursym, 3.1 cm Neurogenic Bladder, chronic chávez catheter Right BKA, farming accident Cholecystectomy Appendectomy Bilateral Cataract LAST VITALS Temp Pulse Resp BP Pulse Ox 98.3 F 110 H 18 125/60 92 L 07/09/16 06:00 07/09/16 06:00 07/09/16 06:00 07/09/16 06:00 07/09/16 06:00 ACTIVE HOME MEDICATIONS Acetaminophen (Tylenol) 325 mg PO Q4H PRN PRN Reason: Fever > 102 Albuterol/Ipratropium (Duoneb) 1 vial NEB RT BID [facility] Last Admin: 07/09/16 10:03 Dose: 1 vial Aspirin (Aspirin Ec) 81 mg PO DAILYWM [facility] Last Admin: 07/09/16 08:48 Dose: 81 mg Calamine/Phenol (Calmoseptine Ointment) 1 applic TP BID [facility] Last Admin: 07/09/16 08:49 Dose: 1 applic (new) Calcium/Vitamin D (Calcium 500 + Vit D 200 Mg Tablet) 1 each PO DAILY [facility] Last Admin: 07/09/16 08:48 Dose: 1 each Guaifenesin (Mucinex) 600 mg PO BID [facility] Last Admin: 07/09/16 08:48 Dose: 600 mg Heparin Sodium (Beef Lung) (Heparin Flush) 30 unit IVF PRN PRN PRN Reason: flush after IV medication Last Admin: 07/09/16 08:30 Dose: 30 unit Heparin Sodium (Beef Lung) (Heparin Flush) 30 unit IVF Q8HR [facility] Last Admin: 07/09/16 04:37 Dose: 30 unit Piperacillin Sod/Tazobactam (Sod 3.375 gm/ Sodium Chloride) 100 mls @ 100 mls/ hr IV Q6HR [facility] Last Admin: 07/09/16 12:00 Dose: 100 mls/hr (discontinued after noon dose) Nystatin (Nystatin Cream) 1 applic TP TID [facility] Last Admin: 07/09/16 08:48 Dose: 1 applic Polyethylene Glycol (Miralax) 17 gm PO DAILY PRN PRN Reason: Constipation Last Admin: 07/07/16 10:27 Dose: 17 gm Fluticasone/Salmeterol (Advair 250-50 Diskus) 1 puff IH BID [facility] Last Admin: 07/09/16 09:30 Dose: 1 puff Tamsulosin HCl (Flomax) 0.4 mg PO DAILY [facility] Last Admin: 07/09/16 08:48 Dose: 0.4 mg Tiotropium Hecker (Spiriva) 1 cap IH DAILY [facility] Last Admin: 07/09/16 09:30 Dose: 1 cap ALLERGIES Penicillins Adverse Reaction (Verified 07/04/16 14:56) NEW PRESCRIPTIONS: Prednisone 10 mg BID for 4 days Cefepime 2 Grams IV piggy back daily for 4 days, start on 07-10-2016 (may administer via port to right chest) SMOKING: Not applicable DISEASE SPECIFIC EDUCATION: Patient forgetful Written instructions to half-way regarding medications, care LAB REVIEW: 07/09/16 05:15 07/09/16 05:15 07/09/16 05:15: WBC 17.27 H, RBC 3.48 L, Hgb 11.1 L, Hct 33.2 L, MCV 95.4 H, MCH 31.9 H, MCHC 33.4, RDW Coeff of [place] 20.2 H, Plt Count 212, Immature Gran % ( Auto) 1.9, Neut % (Auto) 87.6, Lymph % (Auto) 4.7 L, [place] % (Auto) 5.6, Eos % ( Auto) 0.0, Baso % (Auto) 0.2, Immature Gran # (Auto) 0.3, Neut # 15.1 H, Lymph # 0.8, [place] # 1.0, Eos # 0.0, Baso # 0.0, Sodium 139, Potassium 3.7, Chloride 105, Carbon Dioxide 29, Anion Gap 8.7, BUN 20 H, Creatinine 0.93, Estimated GFR (MDRD) 78.00, BUN/Creatinine Ratio 21.50, Glucose 131 H, Calcium 8.1 L, Total Bilirubin 1.68 H, AST 23, ALT 34, Alkaline Phosphatase 46 L, Total Protein 5.1 L , Albumin 2.7 L, Globulin 2.4, Albumin/Globulin Ratio 1.13 PLAN: Discharge to [facility] Dr. Lowery to follow on half-way rounds in 7 days Diet: Pureed, regular consistency liquids Aspirations precautions Upright position during meals. Supervision at meal time. Encourage swallowing after each bite. Dietitian to see and follow for optimal nutritional intakes Evaluate for Speech and Physical therapy Chávez catheter to continuous drainage with catheter care every shift. Weigh weekly Vital Signs daily for 1 week, then weekly Oxygen saturation each shift Nasal Oxygen at 2 liters via cannula Resume Duonebs BID CBC, CMP in one week, then monthly Lipids, TSH every 6 months Turn and reposition frequently; every 2 hours Decubitus precautions May be up to chair for meals Mr. Buck is alert to person, place. He is forgetful, but cooperative with care. Edema is noted to both upper extremities, scrotum and penis. Upper extremities have evidence of ecchymosis in various stages. Buttocks reddened, but skin is intact. Foot drop is present to left foot. He is a right below the knee amputee. He is able to feed self, but eats slowly. Meal intakes are fair at 15-100%. A chávez catheter is patent to closed drainage with clear, yellow urine noted. A medi-port is noted to right chest and has been patent during his hospital stay. Mr. Buck is non-ambulatory, but is able to transfer to the chair with assistance of 2 staff members. Norbert Resendiz MD
--- NOTE | 2016-07-13 13:56 | PN ---
DATE OF SERVICE: 07/09/16 SUBJECTIVE: 80-year-old white male hospitalized with urosepsis, bronchitis. The patient's condition has improved remarkably. The patient is feeling a lot better. He has been talking. His appetite as usual is really good. REVIEW OF SYSTEMS: CONSTITUTIONAL: No night sweats. No fatigue, malaise, lethargy. No fever or chills. HEENT: Eyes: No visual changes. No eye pain. No eye discharge. ENT: No runny nose. No epistaxis. No sinus pain. No sore throat. No odynophagia. No congestion. RESPIRATORY: Mild cough. No hemoptysis. CARDIOVASCULAR: No angina symptoms. No CHF symptoms. No atypical chest pain for CAD. No palpitations. No shortness of breath. GASTROINTESTINAL: Appetite has improved. No abdominal pain. No nausea or vomiting. No diarrhea or constipation. No hematemesis. No hematochezia. GENITOURINARY: No urgency. No frequency. No dysuria. No hematuria. No obstructive symptoms. No discharge. No pain. No significant abnormal bleeding. MUSCULOSKELETAL: No musculoskeletal pain; no joint swelling. NEUROLOGICAL: More alert, less sleepy. No headache. No neck pain. No syncope. No seizures. No dizziness. PSYCHIATRIC: Not anxious. No depression. No suicidal thoughts. No homicidal thoughts. SKIN: No rash. No lesions. No wounds. ENDOCRINE: No unexplained weight loss. No weight gain. HEMATOLOGIC/LYMPHATIC: No anemia. No purpura. No petechiae. No prolonged or excessive bleeding. No palpable lymph nodes. PHYSICAL EXAMINATION: VITAL SIGNS: Temperature 98.3, pulse 100, respiratory rate 18, BP 125/60, pulse ox 92%. HEENT: Head normocephalic, atraumatic. Eyes: Extraocular muscles are intact. Pupils are equal, round and reactive to light and accommodation. Ears: No lesions. Nose appeared normal. Throat: No exudate or erythema. NECK: Supple. No JVD, no carotid bruit. No lymphadenopathy or thyromegaly. LUNGS: Decreased breath sounds. Clear to auscultation. Percussion note normal. Chest symmetrical. HEART: S1, S2, no S3. No murmurs. No cyanosis or clubbing. No ascites. Pulses: Dorsalis pedis and posterior tibial pulses +1 to +2 both sides. ABDOMEN: Soft. Nontender. Bowel sounds active. The patient has right below- knee amputation. Plunkett catheter draining clear urine. No CVA tenderness. No mass felt. EXTREMITIES: No edema. Full range of motion of all extremities, equal. NEUROLOGIC: No focal deficit. Cranial nerves II through XII are grossly intact. No headache, no double vision or headache. SKIN: Not dry. Intact. Turgor - normal. LYMPHATIC: No palpable lymph nodes/no lymphedema. MUSCULOSKELETAL: Normal joints with no swelling. Muscle tone is normal. ASSESSMENT: 1. ACUTE BRONCHITIS WITH RESPIRATORY FAILURE SEEMS TO BE UNDER CONTROL 2. CHRONIC BRONCHITIS 3. SEVERE CHRONIC LUNG DISEASE 4. POSSIBILITY OF UROSEPSIS WITH PSEUDOMONAS LABS: Hemoglobin 11.1, hematocrit 33, WBC 17,000, normal differential. Creatinine 0.9 , BUN 20, potassium 3.7, glucose 131, BNP 115 on 07/04/16. PLAN: 1. We called the longterm. Cefepime will be able to be administered through the longterm, 2 gm every day for 4 days CONDITION: Stable. TIME SPENT: More than 30 minutes. Plan and coordination of the patient's care discussed in the presence of nurse. JEANETTE
--- NOTE | 2016-07-23 14:17 | DS ---
DATE OF SERVICE: 07/09/16 FINAL DIAGNOSIS: 1. URINARY TRACT INFECTION, PSEUDOMONAS AERUGINOSA ORGANISM 2. BRONCHITIS/PNEUMONITIS 3. CHRONIC RESPIRATORY FAILURE 4. ANEMIA 5. OSTEOARTHRITIS 6. LUNG CANCER, 2010 WITH TUMOR REMOVED 7. AORTIC ANEURYSM, 3.1 CM 8. NEUROGENIC BLADDER, CHRONIC RAMIREZ CATHETER 9. RIGHT BKA, FARMING ACCIDENT 10. CHOLECYSTECTOMY 11. APPENDECTOMY 12. BILATERAL CATARACT V/S: Temperature 98.3, pulse 110, respiratory rate 18, BP 125/60, pulse ox 92 DISCHARGE INSTRUCTIONS: 1. Followup appointment - Dr. Lowery to follow on senior care rounds in 7 days. 2. Discharge to [facility]. 3. Evaluate for speech and physical therapy. 4. Ramirez catheter to continuous drainage with catheter care every shift. 5. Weigh weekly. 6. Vital signs daily for one week then weekly. 7. Oxygen saturation each shift. 8. Nasal oxygen at 2L via cannula. 9. Resume Duonebs b.i.d. 10. CBC, CMP in one week then monthly 11. Liquids, TSH every 6 months. 12. Turn and reposition frequently, every two hours. 13. Decubitus precautions. 14. May be up to chair for meals. MEDICATIONS AT DISCHARGE: Flucticasone/Salmeterol (Advair 250-50 diskus) one each IH b.i.d. Tiotropium (Spiriva) one cap IH daily Guaifenesin (Mucinex) 600 mg p.o. b.i.d. Acetaminophen 325 mg p.o. q.4h p.r.n. Tamsulosin (Flomax) 0.4 mg p.o. daily Lactobac one each p.o. daily Aspirin 81 mg p.o. daily Calcium Carbonate/Vitamin D3 one each p.o. daily Polyethylene Glycol 17 gm p.o. daily p.r.n. Ipratropium/albuterol one vial neb b.i.d. Nystatin 30 gm TP t.i.d. NEW PRESCRIPTIONS: Prednisone 10 mg b.i.d. for 4 days Cefepime 2 gm IV piggy back daily for 4 days, start on 07/10/16 (may administer via port to right chest) DIET INSTRUCTIONS: Pureed, regular consistency liquids; aspiration precautions; upright position during meals. Supervision at meal time. Encourage swallowing after each bite. Ski Patroller to see and follow for optimal nutritional intakes. ACTIVITY: Up to chair for meals. SMOKING: N/A DISEASE SPECIFIC EDUCATION: Patient forgetful Written instructions to senior care regarding medications, care HOSPITAL COURSE: 80-year-old white male hospitalized with urosepsis, acute bronchitis and pneumonitis with respiratory failure. The patient's condition has improved remarkably. He has been treated with nebs treatment, IV steroids, IV antibiotics. The patient has Pseudomonas growing from the Ramirez catheter sensitive to Cefepime. Initially it was sensitive to Zosyn. She was given Zosyn. The patient will be given Cefepime which the organisms are sensitive to it. The senior care will be able to give that for the next four days after discharge. The patient's hydration status has improved. His breathing status has improved. His cardiovascular status is stable. Condition at time of discharge is stable. LAB REVIEW: Hemoglobin 11.1, hematocrit 33, WBC 17,000, normal differential. Creatinine 0.9 , BUN 20, potassium 3.7, glucose 131, BNP on admission 115 which was close to normal. TSH was normal. GFR 78 cc/min on admission. CONDITION: Stable. PROGNOSIS: Poor. THE PATIENT IS DNR. TIME SPENT: More than 60 minutes. MTDD
== END 2016-07-09 15:05 | DRG 689 ==
LOC: ED 14:40 → SCU 16:47
PROVIDERS: ADMIT Internal Medicine; ATTEND Internal Medicine
DX: N39.0 Urinary tract infection, site not specified (principal); J18.9 Pneumonia, unspecified organism; J96.11 Chronic respiratory failure with hypoxia; R06.02 Shortness of breath; J40 Bronchitis, not specified as acute or chronic; B96.5 Pseudomonas (aeruginosa) (mallei) (pseudomallei) as the cause of diseases classified elsewhere; R32 Unspecified urinary incontinence; J44.9 Chronic obstructive pulmonary disease, unspecified; N31.9 Neuromuscular dysfunction of bladder, unspecified; R00.0 Tachycardia, unspecified; I71.9 Aortic aneurysm of unspecified site, without rupture; D64.9 Anemia, unspecified; E86.0 Dehydration; F03.90 Unspecified dementia, unspecified severity, without behavioral disturbance, psychotic disturbance, mood disturbance, and anxiety; M19.90 Unspecified osteoarthritis, unspecified site; Z16.30 Resistance to unspecified antimicrobial drugs; Z79.899 Other long term (current) drug therapy; Z96.0 Presence of urogenital implants; Z89.511 Acquired absence of right leg below knee; Z99.81 Dependence on supplemental oxygen; Z85.118 Personal history of other malignant neoplasm of bronchus and lung
CPT/HCPCS: 36415; 80053; 81001; 82550; 82803; 83605; 83880; 84145; 84436; 84443; 84484; 85025; 87040; 87081; 87086; 87186; 87804; 93005; 93010; 94640; 96365; 96375; 99284

== ENCOUNTER 2016-07-28 10:24 | Outpatient (CLI) ==
[2016-07-28 11:00] LABS: FLU INTERNAL QC INTERNAL QC VALID; RAPID FLU A NEGATIVE (NEGATIVE); RAPID FLU B NEGATIVE (NEGATIVE)
== END 2016-07-28 10:25 | disposition home or self-care (01) ==
LOC: NONPT 10:24
PROVIDERS: ATTEND Internal Medicine
DX: R68.89 Other general symptoms and signs (principal)
CPT/HCPCS: 87804

== ENCOUNTER 2016-07-29 11:48 | Outpatient (CLI) ==
[2016-07-29 12:16] VITALS: BMI 18.6
== END 2016-07-29 11:49 ==
LOC: AMBL 11:48
PROVIDERS: ATTEND Emergency Medicine
DX: R05 Cough (principal); R53.1 Weakness; R06.2 Wheezing; Z99.81 Dependence on supplemental oxygen

== ENCOUNTER 2016-07-29 12:02 | Emergency (ER) ==
[2016-07-29 12:16] VITALS: BP 106/74; TEMP 98.6; BMI 18.6
--- NOTE | 2016-07-29 12:41 | ED.PDOC ---
General ED Provider: Dr. RIC FORRESTER JR Chief Complaint: Respiratory Complaint Stated Complaint: Cough, resp distress x 5 days. Started on Keflex yesterday at [place]. Not improved yet. Sent to ER for eval per order Dr Lowery.CO reports harsh cough, resp distress. Pt c/o "couldn't breathe. O2 sat = 95% 3L/ NC. O2 dependent. Slightly labored. Hx lung Ca.[ End ]5 DAYS DNR 98.6 114 23 95 % 106/74 Time Seen by Physician: 12:38 Mode of Arrival: Stretcher Information Source: Patient, Family, [facility] Exam Limitations: Clinical condition Primary Care Provider: SEAN BIRMINGHAM Nursing and Triage Documentation Reviewed and Agree: No Review of Systems - Review Of Systems Constitutional: Reports: No symptoms Eyes: Reports: No symptoms Ears, Nose, Mouth, Throat: Reports: No symptoms Respiratory: Reports: Cough, Short of air Cardiac: Reports: No symptoms GI: Reports: No symptoms : Reports: No symptoms Musculoskeletal: Reports: Muscle pain, Muscle stiffness Skin: Reports: No symptoms Neurological: Reports: Cognitive dysfunction Endocrine: Reports: No symptoms Hematologic/Lymphatic: Reports: No symptoms All Other Systems: Other Past Medical History - Past Medical History Previously Healthy: Yes Endocrine: Reports: None Cardiovascular: Reports: None Respiratory: Reports: COPD Hematological: Reports: None Gastrointestinal: Reports: Other Genitourinary: Reports: None Neuro/Psych: Reports: None Musculoskeletal: Reports: Arthritis Cancer: Reports: Lung Other Pertinent Past Medical History: 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 ), Other (Mediport ) - Family History Family History: Reports: None - Social History Smoking Status: Former smoker Hx Substance Use: No Alcohol Screening: None Physical Exam - Physical Exam Appearance: Well-appearing, Thin, Cachectic Ill-appearing: Mild Pain Distress: Mild ENT: Ears normal Neck: Supple Respiratory: Airway patent, Rhonchi, Wheezes Cardiovascular: RRR, Pulses normal, No rub, No murmur GI/: Soft, Nontender, No masses, Bowel sounds normal, No Organomegaly Musculoskeletal: ROM intact (note bka) Skin: Warm, Dry, Normal color Neurological: Alert, Disoriented Psychiatric: Affect appropriate, Mood appropriate Interpretation - Radiology Interpretation Radiology Interpretation By: Radiologist Radiology Results: No acute changes Exam Interpreted: CXR - EKG Interpretation Time of EKG #1: 12:55 Rate: Tachy Rhythm: Sinus Ectopy: None Physician Notification - Case Discussed Physician Notified: dr lowery Time of Notification: 14:24 Critical Care Note - Critical Care Note Total Time (mins): 10 Course - Course Hematology/Chemistry: 07/29/16 13:20 07/29/16 13:20 Orders, Labs, Meds: Lab Review 07/29/16 07/29/16 13:05 13:20 WBC 7.50 RBC 3.42 L Hgb 11.3 L Hct 35.4 L MCV 103.5 H MCH 33.0 H MCHC 31.9 RDW Coeff of [place] 16.3 H Plt Count 251 Immature Gran % (Auto) 0.7 Neut % (Auto) 85.2 Lymph % (Auto) 5.5 L [place] % (Auto) 8.3 Eos % (Auto) 0.0 Baso % (Auto) 0.3 Immature Gran # (Auto) 0.1 Neut # 6.4 Lymph # 0.4 L [place] # 0.6 Eos # 0.0 Baso # 0.0 Puncture Site R rad O2 Saturation 93.0 L ABG pH 7.462 H ABG pCO2 34.3 L ABG pO2 64.0 L ABG HCO3 24.5 ABG Total CO2 26 ABG Base Excess 1 [place] Test + O2 Delivery Device Nc Oxygen Liter Flow 3.00 Sodium 147 H Potassium 4.0 Chloride 108 H Carbon Dioxide 28 Anion Gap 15.0 BUN 38 H Creatinine 1.25 H Estimated GFR (MDRD) 56.00 BUN/Creatinine Ratio 30.40 Glucose 163 H Lactic Acid 33.6 H Calcium 9.4 Total Bilirubin 1.30 H AST 31 ALT 30 Alkaline Phosphatase 70 Total Creatine Kinase 60 Troponin I < 0.0100 B-Natriuretic Peptide 96 Total Protein 7.0 Albumin 3.2 L Globulin 3.8 Albumin/Globulin Ratio 0.84 Procalcitonin 0.09 Orders Category Date Time Status ABG DRAW REQUEST Stat CARDIO 07/29/16 12:40 Completed EKG-(ED ONLY) Stat CARDIO 07/29/16 12:39 Completed HOSPICE CONSULTATION ONCE CARE 07/29/16 15:02 Active ED APPLY O2 .ONCE EMERGENCY 07/29/16 12:39 Active ED PRODUCT DEVELOPMENT CHEMIST APPLIED .ONCE EMERGENCY 07/29/16 12:39 Active ED IV/MEDIPORT/POWERPORT .ONCE EMERGENCY 07/29/16 12:39 Active IV [ED IV/MEDIPORT/POWERPORT] .ONCE EMERGENCY 07/29/16 14:23 Active ABG Stat LAB 07/29/16 13:05 Completed B-TYPE NATRIURETIC PEPTIDE Stat LAB 07/29/16 13:20 Completed BLOOD CULTURE Stat LAB 07/29/16 13:20 Received CBC W/ AUTO DIFF Stat LAB 07/29/16 13:20 Completed COMPREHENSIVE METABOLIC PANEL Stat LAB 07/29/16 13:20 Completed CREATINE KINASE Stat LAB 07/29/16 13:20 Completed LACTIC ACID Stat LAB 07/29/16 13:20 Completed PROCALCITONIN Stat LAB 07/29/16 13:20 Completed TROPONIN I Stat LAB 07/29/16 13:20 Completed 0.9 % Sodium Chloride [Saline Flush] MEDS 07/29/16 12:39 Discontinued 1 syr IVF PRN PRN 0.9 % Sodium Chloride [Saline Flush] MEDS 07/29/16 14:23 Discontinued 1 syr IVF PRN PRN Sodium Chloride 0.9% [Sodium Chloride] 500 ml MEDS 07/29/16 14:23 Discontinued IV BOLUS CHEST, 1V AP ONLY Stat RADS 07/29/16 12:39 Completed Medications Discontinued Medications Generic Name Dose Route Start Last Admin Trade Name Freq PRN Reason Stop Dose Admin Sodium Chloride 500 mls @ 250 mls/hr 07/29/16 14:23 07/29/16 15:00 Sodium Chloride IV 07/29/16 16:22 250 mls/hr BOLUS STA Administration Sodium Chloride 1 syr 07/29/16 12:39 Saline Flush IVF PRN PRN To flush IV Sodium Chloride 1 syr 07/29/16 14:23 Saline Flush IVF PRN PRN To flush IV Vital Signs: Temp Pulse Resp BP Pulse Ox 07/29/16 12:04 98.6 F 114 H 23 106/74 95 Departure - Departure Time of Disposition: 15:02 Disposition: HOME SELF-CARE Discharge Problem: Cough, Pulmonary aspiration, history of, Dehydration Instructions: Chronic Cough (ED), Dehydration (ED) Condition: Fair Pt referred to PMD for follow-up: Yes Additional Instructions: discuss home care with care management consider home hospice may return if worse encourage oral fluids Allergies/Adverse Reactions: Allergies Penicillins Adverse Reaction (Verified 07/29/16 13:22) Home Medications: Ambulatory Orders Fluticasone/Salmeterol [Advair 250-50 Diskus] 1 each IH BID 04/01/13 Tiotropium [place] [Spiriva] 1 cap IH DAILY 04/01/13 Acetaminophen [Tylenol] 325 mg PO Q4H PRN 08/12/13 Guaifenesin [Mucinex] 600 mg PO BID 08/12/13 Aspirin [Adult Low Dose Aspirin EC] 81 mg PO DAILY 10/01/15 Lactobac Cmb #3/Fos/Pantethine [Probiotic & Acidophilus Cap] 1 each PO DAILY 11/08 Tamsulosin HCl [Flomax] 0.4 mg PO DAILY 10/01/15 Calcium Carbonate/Vitamin D3 [Caltrate 600 + D Tablet] 1 each PO DAILY 05/09/16 Ipratropium/Albuterol Neb [Duoneb] 1 vial NEB BID 05/09/16 Polyethylene Glycol 3350 [Miralax] 17 gm PO DAILY PRN 05/09/16 Nystatin 30 gm TP TID 07/04/16 Cephalexin [Keflex] 500 mg PO Q12HR 07/29/16
[2016-07-29 13:14] LABS: ABG BASE EXCESS 1 (-2.0-2.0); ABG HCO3 24.5 (22.0-26.0); ABG PCO2 34.3 mmHg (35-45); ABG PH 7.462 (7.35-7.45); ABG TCO2 26 (22.0-28.0)
[2016-07-29 13:35] LABS: BASOPHILS % (AUTO) 0.3 % (0.0-3.0); HEMATOCRIT 35.4 % (42.0-52.0); HEMOGLOBIN 11.3 g/dl (14.0-18.0); IMMATURE GRANULOCYTE % (AUTO) 0.7 % (0.0-5.0); LYMPHOCYTES # (AUTO) 0.4 K/uL (0.60-3.4); LYMPHOCYTES % (AUTO) 5.5 (10.0-50.0); MEAN CORPUSCULAR HGB CONC 31.9 (31.8-35.4); MEAN CORPUSCULAR VOLUME 103.5 fl (80.0-94.0); MONOCYTES # (AUTO) 0.6 K/uL (0.4-2.0); MONOCYTES % (AUTO) 8.3 (0-10); NEUTROPHILS # (AUTO) 6.4 K/ul (2.0-6.9); NEUTROPHILS % (AUTO) 85.2; PLATELET COUNT 251 10^3/uL (140-440); RED BLOOD COUNT 3.42 10^6/ul (4.70-6.10)
--- NOTE | 2016-07-29 13:36 | DI ---
EXAM: Single frontal view of the chest HISTORY: Chest pain. COMPARISON: Chest x-ray 07/04/[address] chest 06/05/2016 FINDINGS: Cardiomediastinal silhouette is unremarkable with mild atherosclerotic disease of the aort a. There is a right Port-A-Cath present. There is no pneumothorax or pleural effusion. Interstiti al prominence in the right infrahilar region is unchanged from prior exam. Lungs are hyperinflated. There is no acute consolidation or mass. The osseous structures are unchanged. IMPRESSION: 1. No acute consolidation with stable interstitial opacities in the right infrahilar region consist ent with areas of fibrosis and airway thickening seen on prior CT. 2. Hyperinflation consistent with chronic obstructive pulmonary disease.
[2016-07-29 14:07] LABS: ALANINE AMINOTRANSFERASE 30 U/L (12-78); ALBUMIN 3.2 g/dL (3.4-5.0); ALBUMIN/GLOBULIN RATIO 0.84; ALKALINE PHOSPHATASE 70 U/L (56-119); ASPARTATE AMINO TRANSFERASE 31 U/L (15-37); BLOOD UREA NITROGEN 38 mg/dL (7-18); CALCIUM 9.4 mg/dL (8.2-10.2); CARBON DIOXIDE 28 mmol/L (23-31); CHLORIDE 108 mmol/L (98-107); CREATINE KINASE 60 U/L; CREATININE 1.25 mg/dL (0.60-1.10); GLUCOSE 163 mg/dL (82-115); SODIUM 147 mmol/L (136-145)
[2016-07-29] MEDS ORDERED: SODIUM CHLORIDE 500 ML IV STA (14:23)
== END 2016-07-29 17:20 | disposition home or self-care (01) ==
LOC: ED 12:02
DX: R05 Cough (principal); E86.0 Dehydration; R06.02 Shortness of breath; J44.9 Chronic obstructive pulmonary disease, unspecified; Z79.899 Other long term (current) drug therapy; Z85.118 Personal history of other malignant neoplasm of bronchus and lung; Z99.81 Dependence on supplemental oxygen
CPT/HCPCS: 36415; 80053; 82550; 82803; 83605; 83880; 84145; 84484; 85025; 87040; 93005; 93010; 96360; 99284

== ENCOUNTER 2016-08-07 17:05 | Outpatient (CLI) | payer OTHER | END 2016-08-07 17:06 | LOC: AMBL 17:05 | PROVIDERS: ATTEND Internal Medicine | DX: J96.10 Chronic respiratory failure, unspecified whether with hypoxia or hypercapnia (principal); J43.9 Emphysema, unspecified; I74.9 Embolism and thrombosis of unspecified artery; J44.9 Chronic obstructive pulmonary disease, unspecified; I25.10 Atherosclerotic heart disease of native coronary artery without angina pectoris; F41.9 Anxiety disorder, unspecified; G70.9 Myoneural disorder, unspecified; Z89.611 Acquired absence of right leg above knee ==